=== PATIENT | male | born 1945 | race Caucasian/White ===

== ENCOUNTER 2017-03-17 19:07 | Inpatient (IN) ==
[2017-03-17] MEDS ORDERED: Acetaminophen 325 MG TABLET PO PRN (23:31)
[2017-03-17] MEDS ORDERED: *HR* HYDROcodone/Acet 5/325 mg TABLET PO PRN (23:31)
[2017-03-17] MEDS ORDERED: Naloxone 0.4 MG/ML INJ IVP PRN (23:31)
--- NOTE | 2017-03-17 23:32 | Internal Med History&Physical ---
<Angel Bills - Last Filed: 03/18/17 04:22> Date of Encounter: 03/17/17 Time of Encounter: 22:30 Assessment and Plan (1) SHARON (acute kidney injury) Current visit: Yes Status: Acute - SCr 2.88 on admission, which is worse compared to 1.2 on 03/15/17. - Likely multifactorial including dehydration, rhabdomyolysis and postrenal obstruction. - Avoid nephrotoxin. - Admit to hospital for aggressive hydration with IV fluid and close monitoring of renal function and electrolytes. Total time spent on admission: 40 minutes (2) Rhabdomyolysis Current visit: Yes Status: Acute - On the ground for more than 8 hours after a fall, myalgia and CK 1446 at [facility]. - Aggressive hydration with IV fluid. - Closely monitor renal function and electrolytes. - Prn pain medication for pain control. Qualifiers: Rhabdomyolysis type: non-traumatic Qualified Code(s): M62.82 - Rhabdomyolysis (3) Elevated troponin Current visit: Yes Status: Acute - Elevated troponin: 1.59 & 1.57 at [facility] and 1.08 here. - Patient denies chest pain and EKG showed no significant ischemic change. - Continue telemetry monitoring and serial troponin. - Continue aspirin but hold statin given current rhabdomyolysis. (4) Bilateral leg weakness Current visit: Yes Status: Acute - Patient reports sudden onset of bilateral lower extremity weakness starting 11 pm on 03/16/17. - Patient denies numbness/tingling or incontinence. And the back pain started after the weakness. 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 Patient denies dyspnea at this time. - Will obtain CT head, cervical and thoracic spine for further evaluation. - Close monitor with neuro check q4H. - PT/OT consult. (5) Transaminitis Current visit: Yes Status: Acute - With elevation of AST & ALT from 19 & 21 on 03/15/17 to 787 & 229 on admission. - S/p laparoscopic cholecystectomy on 03/10/17. - Will obtain CT A/P for further evaluation. - Continue to monitor closely. (6) UTI (urinary tract infection) Current visit: Yes Status: Acute - Concern of complicated UTI. - UA at [facility] is positive for nitrite and negative for leukocyte esterase. Urine culture pending. - History of kidney stone s/p recent lithotripsy & right ureteral stent. - Start IV ceftriaxone. Qualifiers: Urinary tract infection type: site unspecified Hematuria presence: with hematuria Qualified Code(s): N39.0 - Urinary tract infection, site not specified; R31.9 - Hematuria, unspecified (7) Urinary retention Current visit: Yes Status: Acute - Patient reports difficulty urinating after Tol[place] and right ureteral stent removal on 03/16/17. - Initiate [place] catheter. - Strict I/O. (8) Hypokalemia Current visit: Yes Status: Acute - K at 3.2 on admission. - Give 20 meq of KCl. - Continue to monitor and replenish accordingly. (9) Hyponatremia Current visit: Yes Status: Chronic - Na 130 on admission. - Likely chronic given prior Na 127 on 03/15 & Na 131 on 03/17. - Currently on IV NS. - Recheck Na in the AM and consider switch IVF to LR if Na increases near or more than 6. (10) Diabetes mellitus Current visit: Yes Status: Chronic - Insulin sliding scale with routine AccuCheck. Qualifiers: Diabetes mellitus type: type 2 Diabetes mellitus complication status: with unspecified complications Diabetes mellitus truck terminal manager insulin use: without truck terminal manager use Qualified Code(s): E11.8 - Type 2 diabetes mellitus with unspecified complications (11) Hypertension Current visit: Yes Status: Chronic - Continue home dose antihypertensive regimen. Qualifiers: Hypertension type: essential hypertension Qualified Code(s): I10 - Essential (primary) hypertension (12) DVT prophylaxis Current visit: Yes Status: Acute - SQ heparin. Internal Medicine - H&P: HPI Chief complaint: Sudden onset of lower extremity weakness. Admitted From: Emergency Dept Plans for Post Hospital Care: Transfer Inp Rehab Fac History of present illness: Mr. BOLAÑOS is a 71 year old male with PMH of DM, HTN and history of kidney stone s /p lithotripsy & right ureteral stent placement on 03/07/17 and laparoscopic cholecystectomy on 03/10/17 at [facility]. Patient had the right ureteral stent removed & Toledo removed yesterday and reports difficulty urinating since. Patient reports having sudden onset of bilateral lower extremity weakness resulting in a fall in bathroom at 11 PM last night. Patient was unable to get up so remained on the floor until being found at 7:30 AM. Patient denies loss of consciousness and reports back pain and pain of bilateral hips, knees and feet after fall. Patient also reports some abdominal fullness, nausea, dry heaving and loosen stool. Patient states his LOREN drain was removed today. Patient feels that weakness now also progressed to affect his upper extremities. Patient denies shortness of breath, cough, chest pain, palpitation , numbness/tingling, vision change, hearing change. Patient denies recent sick contact or travel. Patient denies recent trauma, injury or fall prior to the fall last night. Patient is full code. Lab at [facility] revealed WBC 11.8, Hgb 12.0, Plt 355, Na 131, K 3.0, Cl 93 , HCO3 23, BUN 24 and Cr 2.1, which dropped from Cr 1.2 on 03/15/17. First troponin 1.59 at 1359 and 1.57 at 1748. UA is positive for nitrite but negative for leukocyte esterase. Patient received one dose of IV levofloxacin, aspirin and Lipitor prior being transferred here. Past Med Surg Social Fam HX - Past Medical History Medical history: diabetes, hyperlipidemia, hypertension, kidney stones, syncope Psychiatric history: no psych history - Past Surgical History Surgical History: cholecystectomy, ureteral stent (Recent lithotripsy with right ureteral stent, which was removed on 03/16/17) - Social History Smoking Status: Never smoker Alcohol use: none Drug use: none - Family History Father Living Status: Age at : 84 Cause of : lung cancer Hx Family Cancer: Yes (Lung and throat cancer) Internal Medicine - H&P: Meds Dicyclomine [Bentyl] 10 mg PO TID 03/17/17 [History] Docusate [Colace] 100 mg PO BID 03/17/17 [History] Olmesartan/Hydrochlorothiazide [Benicar Hct 40-25 mg Tablet] 1 each PO DAILY [History] Omeprazole [PriLOSEC] 40 mg PO DAILY 03/17/17 [History] Ondansetron ODT [Zofran ODT] 4 mg PO Q6H PRN 03/17/17 [History] OxyCODONE/APAP 5/325 [Percocet 5/325 MG] 1 each PO Q6HR PRN 03/17/17 [History] Potassium Chloride [Klor-Con 10] 10 meq PO BID 03/17/17 [History] Pyridium 1 tab PO TID PRN 03/17/17 [History] Silodosin [Rapaflo] 8 mg PO DAILY 03/17/17 [History] Sucralfate [Carafate] 1 gm PO QID 03/17/17 [History] Sulfamethoxazole/Trimeth DS [Bactrim DS] 1 each PO BID 03/17/17 [History] amLODIPine [Norvasc] 5 mg PO BID 03/17/17 [History] metFORMIN [Glucophage] 500 mg PO ACHS 03/17/17 [History] 3 Allergy/AdvReac Type Severity Reaction Status Date / Time No Known Allergies Allergy Verified 03/17/17 21:44 All Systems PM: A 10-system review of systems was performed and is negative for pertinent findings except as documented above in the HPI. - Constitutional Constitutional: chills, no anorexia, no fever(s) - EENT Eyes: no change in vision Ears: no decreased hearing Nose, mouth and throat: no dysphagia, no odynophagia - Cardiovascular Cardiovascular ROS IM: no chest pain, no palpitations, no syncope - Respiratory Respiratory: no cough, no dyspnea, no hemoptysis - Gastrointestinal Gastrointestinal: abdominal pain, loose stools, nausea, vomiting, no hematochezia, no melena - Genitourinary Genitourinary ROS male: difficulty urinating, no dysuria, no hematuria - Musculoskeletal Musculoskeletal ROS IM: arthralgias (Back, bilateral hips, knees and feet), myalgias - Integumentary Integumentary IM: no pruritus, no rash - Neurological Neurological ROS: weakness (Bilateral lower extremity weakness), no numbness, no tingling - Hematologic/Lymphatic Hematologic/Lymphatic: no easy bleeding, no easy bruising - Constitutional Vitals: Temp Pulse Resp BP Pulse Ox 100.3 F H 96 18 131/87 98 03/17/17 21:31 03/17/17 22:54 03/17/17 21:31 03/17/17 21:31 03/17/17 21:31 General appearance: Present: cooperative, A&O X 3, no acute distress, answers questions appropriately - Head Head exam: Present: atraumatic, normocephalic - Eye Eye exam: Present: EOMI, PERRL, conjuntiva pink, sclera anicteric - ENT ENT exam: Present: mucous membranes dry - Neck Neck exam general surgery: Present: supple, trachea midline. Absent: lymphadenopathy - Respiratory Respiratory exam: Present: decreased breath sounds. Absent: accessory muscle use, rales, rhonchi, wheezes - Cardiovascular Cardiovascular exam: Present: +S1, +S2, tachycardia. Absent: diastolic murmur, gallop, rubs, systolic murmur - GI/Abdominal GI/Abdominal exam: Present: normal bowel sounds, soft, tenderness (Diffuse), no peritoneal signs. Absent: distended Additional comments: Incision sites with dressing noted. - Extremities Exam Extremities exam: Present: warm, radial pulses palpable and symmetrical. Absent : calf tenderness, cyanotic, pedal edema - Neurological Exam Neurological exam: Present: CN II-XII intact, oriented X3. Absent: pronater drift, facial droop, speech deficit Additional comments: Bilateral upper extremities: 5/5 strength but patient can only do for short time due to muscle pain. Bilateral lower extremities: Unable to full assess given patient reports cannot move his legs, likely due to pain. Patient is able to cross his legs. - Skin Skin exam: Present: abrasion (Bilateral knees from fall. ), dry, warm Internal Med - H&P Results - Labs CBC & Chem 7: 03/18/17 00:01 03/18/17 00:01 <Julio Rosales - Last Filed: 03/18/17 06:13> Date of Encounter: 03/18/17 Internal Medicine - H&P: HPI History of present illness: Mr. Bolaños is a 71 year old male All Systems PM: A 10-system review of systems was performed and is negative for pertinent findings except as documented above in the HPI. - Constitutional Vitals: Temp Pulse Resp BP Pulse Ox 98.1 F 73 18 120/71 98 03/18/17 05:18 03/18/17 05:18 03/18/17 05:18 03/18/17 05:18 03/18/17 05:18 Internal Med - H&P Results - Labs CBC & Chem 7: 03/18/17 00:01 03/18/17 00:01 Labs: Short CBC 03/18/17 Range/Units 00:01 WBC 10.5 (4.3-11.1) K/mcL Hgb 10.1 L (12.9-16.9) g/dL Hct 30.2 L (37.5-50.1) % Plt Count 305 (140-400) K/mcL Neutrophils # 9.7 H (1.6-8.9) K/mcL BMP 03/18/17 00:01 Sodium 130 L Potassium 3.2 L Chloride 99 Carbon Dioxide 18 L BUN 28 H Creatinine 2.88 H Glucose 167 H Calcium 8.2 L Cardiac Enzymes 03/18/17 Range/Units 00:01 Troponin I 1.08 H* (0-0.03) ng/mL Liver Function 03/18/17 Range/Units 00:01 Total Bilirubin 0.6 (0.2-1.2) mg/dL AST 787 H (5-34) Units/L ALT 229 H (0-55) Units/L Alkaline Phosphatase 55 (38-126) Units/L Albumin 2.4 L (3.5-5.0) g/dL Urine 03/18/17 Range/Units 00:50 Urine Color [place] A (Yellow) Urine Clarity Turbid A (Clear) Urine pH 6.0 (5.0-8.0) pH Units Ur Specific [place] 1.018 (1.010-1.025) Urine Protein 100 H (Neg-Trace) mg/dL Urine Glucose (UA) 500 H (Normal) mg/dL - Impressions ITS Impressions Cervical Spine CT 03/18/17 00:18 IMPRESSION: No acute abnormality of the cervical spine. Mild cervical spine spondylosis. D/ / Jaleel Holden MD / Jaleel Holden MD Interpreting Provider: Jaleel Holden MD Thoracic Spine CT 03/18/17 00:18 IMPRESSION: No acute fracture subluxation of the thoracic spine. Moderate general changes of the mid thoracic spine. D/ / Jaleel Holden MD / Jaleel Holden MD Interpreting Provider: Jaleel Holden MD - Attending Attestation I examined this patient and my medical decision-making was reviewed with the Resident Physician, Dr. Angel Bills. I agree with the documented findings, disposition and treatment plan as described except to the extent set forth below. I have independently obtained history and examined the patient and my findings are summarized below: Patient presented with lower extremity weakness and generalized aches and pains. CPK and troponin was elevated. He fell prior to admission and had lied on the floor for 8 hours. Patient has bilateral thigh flexor weakness, lower extremity distal muscle strength is more preserved. I have reviewed the records including blood work from [facility]. His BUN was 24 creatinine 2.1 troponin 1.57, lactic had set 3.9. Sodium 131 potassium 3.0. Plan: Vigorous IV fluid hydration. IV antibiotics for UTI. Heart monitoring. Trend troponin. Avoid nephrotoxins. CT head and cervical spine and thoracic spine to rule out intracranial or epidural process as a cause for his weakness. CT abdomen and pelvis to evaluate for source of infection.
[2017-03-17] MEDS ORDERED: 0.9 % Sodium Chloride 1,000 ML IVC SCH ×2 (23:45)
[2017-03-18] MEDS: *HR* OxyCODONE Immed Rel 5 MG TABLET PO PRN ×4 (00:09→23:21)
[2017-03-18 00:22] LABS: Basophils % 0.1 %; Hematocrit 30.2 % (37.5-50.1); Hemoglobin 10.1 g/dL (12.9-16.9); Immature Granulocytes % 0.6 % (0-4); Lymphocytes # 0.4 K/mcL (0.6-4.6); Lymphocytes % 3.3 %; Mean Corpuscular HGB Conc 33.4 g/dL (31.6-35.5); Mean Corpuscular Hemoglobin 26.6 pg (28.0-33.3); Mean Corpuscular Volume 79.5 fL (83.0-100.0); Mean Platelet Volume 9.1 fL (9.4-12.4); Monocytes # 0.4 K/mcL (0.0-1.3); Neutrophils # 9.7 K/mcL (1.6-8.9); Platelet Count 305 K/mcL (140-400); Red Cell Distribution Width 13.6 % (11.5-14.5)
[2017-03-18] MEDS ORDERED: D5% in Water 1,000 ML IVC PRN (00:22)
[2017-03-18] MEDS ORDERED: *HR* Dextrose 50 % in Water (Syg) 50 ML SYRINGE IVP PRN (00:22)
[2017-03-18] MEDS ORDERED: Dextrose Gel 15 GM PO PRN ×2 (00:22)
[2017-03-18 00:27] LABS: INR 1.5; Prothrombin Time 16.1 Seconds (9.4-12.1)
[2017-03-18 00:30] LABS: Activated Partial Thrombo Time 36.8 Seconds (26.0-36.0)
[2017-03-18 00:38] LABS: Albumin 2.4 g/dL (3.5-5.0); Albumin/Globulin Ratio 0.6 (1.1-2.2); Bilirubin,Total 0.6 mg/dL (0.2-1.2); Calcium 8.2 mg/dL (8.6-10.8); Magnesium 1.7 mg/dL (1.6-2.6); Potassium 3.2 mEq/L (3.5-4.5); Total Protein 6.4 g/dL (6.0-8.3)
[2017-03-18] MEDS: 0.9 % Sodium Chloride 1,000 ML IVC SCH ×5 (04:35→20:59)
[2017-03-18 04:59] LABS: Bilirubin,Urine Negative (Negative); Blood,Urine Large (Negative); Clarity,Urine Turbid (Clear); Color,Urine Orange (Yellow); Glucose,Urine (UA) 500 mg/dL (Normal); Ketones,Urine Trace mg/dL (Negative); Specific Gravity,Urine 1.018 (1.010-1.025)
[2017-03-18 05:00] LABS: Leukocyte Esterase,Urine Trace (Negative); Nitrite,Urine Positive (Negative); Protein,Urine 100 mg/dL (Neg-Trace); Urobilinogen,Urine Normal (Normal)
[2017-03-18 05:01] LABS: RBC,Urine 15-30 per hpf (0-3); Squamous Epithelial Cell,Urine Moderate per lpf (None-Few); WBC,Urine 0-3 per hpf (0-3)
[2017-03-18] MEDS: *HR* Heparin 5,000 UNIT/ML VIAL SQ SCH ×3 (05:03→21:00)
[2017-03-18 06:20] LABS: Basophils % 0.2 %; Eosinophils % 0.1 %; Hematocrit 30.3 % (37.5-50.1); Hemoglobin 10.1 g/dL (12.9-16.9); Immature Granulocytes % 0.6 % (0-4); Lymphocytes # 0.6 K/mcL (0.6-4.6); Lymphocytes % 6.1 %; Mean Corpuscular HGB Conc 33.3 g/dL (31.6-35.5); Mean Corpuscular Hemoglobin 27.2 pg (28.0-33.3); Mean Corpuscular Volume 81.5 fL (83.0-100.0); Mean Platelet Volume 9.4 fL (9.4-12.4); Monocytes # 0.4 K/mcL (0.0-1.3); Monocytes % 4.3 %; Neutrophils # 8.4 K/mcL (1.6-8.9); Platelet Count 298 K/mcL (140-400); Red Blood Count 3.72 M/mcL (4.19-5.50); Red Cell Distribution Width 13.9 % (11.5-14.5); Segmented Neutrophils % 88.7 %
[2017-03-18 06:42] LABS: Albumin 2.3 g/dL (3.5-5.0); Albumin/Globulin Ratio 0.5 (1.1-2.2); Bilirubin,Total 0.4 mg/dL (0.2-1.2); Calcium 8.2 mg/dL (8.6-10.8); Globulin 4.2 g/dL (2.4-3.5); Potassium 3.3 mEq/L (3.5-4.5); Total Protein 6.5 g/dL (6.0-8.3)
[2017-03-18] MEDS: Insulin LISPRO 300 UNITS/3 ML VIAL SQ SCH ×4 (06:44→20:58)
[2017-03-18] MEDS: Aspirin 81 MG TAB.CHEW PO SCH (08:24)
[2017-03-18] MEDS: Ondansetron 4 MG/2 ML VIAL IVP PRN ×2 (08:24→17:46)
[2017-03-18] MEDS: Sucralfate 1 GM TABLET PO SCH ×4 (08:24→19:47)
[2017-03-18] MEDS: amLODIPine 5 MG TABLET PO SCH ×2 (08:24→19:47)
[2017-03-18] MEDS ORDERED: Potassium Chloride Elixir 20 MEQ/15 ML UDC PO ONE (09:15)
--- NOTE | 2017-03-18 10:02 | Internal Med Progress Note ---
Date of Encounter: 03/18/17 Time of Encounter: 09:56 - Assessment and plan (1) Rhabdomyolysis Current Visit: Yes Status: Acute Assessment and plan: Significant bilateral lower extremity weakness leading to ground level fall and remaining on the ground for about 8 hours. Also noted to be on statin. Continue aggressive IV hydration, suspect acute kidney injury related to rhabdomyolysis. Serum creatinine kinase significantly elevated at 36,000, currently slightly improving. Monitor closely for worsening renal failure, compartment syndrome. Monitor urine output closely. Qualifiers: Rhabdomyolysis type: non-traumatic Qualified Code(s): M62.82 - Rhabdomyolysis (2) Elevated troponin Current Visit: Yes Status: Acute Assessment and plan: Noted to have troponin leak, peak troponin at 1.5. Patient did not have chest pain, no EKG changes. Continue telemetric monitoring. Serial troponin noted to be trending down up to 0.5. Less likely ACS, probably related to rhabdomyolysis. Check echocardiogram. Consult cardiology for further recommendations. (3) UTI (urinary tract infection) Current Visit: Yes Status: Acute Assessment and plan: Urinalysis suggestive of UTI. Continue IV Rocephin and follow up final urine culture. Qualifiers: Urinary tract infection type: site unspecified Hematuria presence: without hematuria Qualified Code(s): N39.0 - Urinary tract infection, site not specified (4) Bilateral leg weakness Current Visit: Yes Status: Acute Assessment and plan: Likely secondary to fall and rhabdomyolysis. CT cervical and lumbar spine shows no acute abnormality/stenosis/nerve root compression. Continue pain control with cautious use of oral Percocet and IV morphine. Physical and occupational therapy evaluation. (5) Urinary retention Current Visit: Yes Status: Acute Assessment and plan: Continue Smith catheter and monitor urine output. CT abdomen/pelvis showed right renal nonobstructive stones. Renal ultrasound shows nonobstructing stone in the lower pole of right kidney, no hydronephrosis or hydroureter. Continue to monitor closely. (6) Transaminitis Current Visit: Yes Status: Acute Assessment and plan: Currently improving. Could be related to recent laparoscopic cholecystectomy with retained stone/bile leak, acute renal failure. (7) Hypokalemia Current Visit: Yes Status: Acute Assessment and plan: Supplement oral potassium chloride. (8) SHARON (acute kidney injury) Current Visit: Yes Status: Acute Assessment and plan: Noted to have acute renal failure. Per patient's , he carries no diagnosis of chronic kidney disease. However, his renal dysfunction began during the recent admission at [facility] for urinary retention and right- sided hydroureter/hydronephrosis due to ureterolithiasis. He had placement of right ureteral stent and subsequent removal. Serum creatinine noted to be worsening at this time, 3.3 today. Nephrology consult. Continue IV hydration and urine output monitoring. Avoid new nephrotoxic agents. (9) Hypertension Current Visit: Yes Status: Chronic Qualifiers: Hypertension type: essential hypertension Qualified Code(s): I10 - Essential (primary) hypertension (10) Diabetes mellitus Current Visit: Yes Status: Chronic Assessment and plan: Continue Accu-Chek blood glucose monitoring with sliding scale insulin. Diabetic diet as tolerated. Qualifiers: Diabetes mellitus type: type 2 Diabetes mellitus complication status: with unspecified complications Diabetes mellitus long term care administrator insulin use: without long term care administrator use Qualified Code(s): E11.8 - Type 2 diabetes mellitus with unspecified complications - Subjective Interval history: Reports significant weakness in both his legs, can hardly move them; he also reports some weakness in his arms and feels miserable; very thirsty; urine output noted to be low; improving nausea and dry heaving; no chest pain but seems to be having some difficulty breathing; Of note, patient recently had laparoscopic cholecystectomy done as an outpatient and went home with LOREN drain likely due to biliary leak/obstruction, subsequently removed. Then he had lithotripsy done as an outpatient about 2 weeks ago, after which he developed some renal failure and urinary retention and was hospitalized at [facility], where he underwent right ureteral stent placement and Smith, both of which were removed on 03/16/17 and he was discharged home. He felt better at discharge but soon after getting home, he had significant leg weakness and stayed on the bathroom floor for a few hours before crawling back to bed, and was subsequently taken to [facility] urgent care by his , and then transferred here. - Constitutional Vitals: Temp Pulse Resp BP Pulse Ox 98.8 F 105 18 130/79 93 03/18/17 07:24 03/18/17 08:57 03/18/17 07:24 03/18/17 07:24 03/18/17 07:24 General appearance: Present: cooperative, mild distress, A&O X 3, obese, answers questions appropriately - Respiratory Respiratory exam: Present: CTAB. Absent: accessory muscle use, rales, rhonchi, wheezes - Cardiovascular Cardiovascular exam: Present: RRR, +S1, +S2. Absent: diastolic murmur, gallop, rubs, systolic murmur - GI/Abdominal GI/Abdominal exam: Present: normal bowel sounds, soft (obese), no peritoneal signs. Absent: distended, tenderness - Extremities Exam Extremities exam: Present: full ROM (decreased in LE B/L due to pain and weakness), warm, radial pulses palpable and symmetrical. Absent: calf tenderness, cyanotic, pedal edema - Neurological Exam Neurological exam: Present: CN II-XII intact, oriented X3, no focal deficits ( motor power 3-4/5 in B/L LE, 5/5 in B/L UE). Absent: pronater drift, facial droop, speech deficit - Skin Skin exam: Present: dry, intact Internal Medicine: Result - Labs CBC & Chem 7: 03/18/17 05:44 03/18/17 05:44 Labs: Short CBC 03/18/17 03/18/17 Range/Units 00:01 05:44 WBC 10.5 9.4 (4.3-11.1) K/mcL Hgb 10.1 L 10.1 L (12.9-16.9) g/dL Hct 30.2 L 30.3 L (37.5-50.1) % Plt Count 305 298 (140-400) K/mcL Neutrophils # 9.7 H 8.4 (1.6-8.9) K/mcL BMP 03/18/17 03/18/17 00:01 05:44 Sodium 130 L 131 L Potassium 3.2 L 3.3 L Chloride 99 96 L Carbon Dioxide 18 L 19 BUN 28 H 30 H Creatinine 2.88 H 3.31 H Glucose 167 H 139 H Calcium 8.2 L 8.2 L Cardiac Enzymes 03/18/17 03/18/17 Range/Units 00:01 05:44 Troponin I 1.08 H* 0.73 H* (0-0.03) ng/mL Liver Function 03/18/17 03/18/17 Range/Units 00:01 05:44 Total Bilirubin 0.6 0.4 (0.2-1.2) mg/dL AST 787 H 693 H (5-34) Units/L ALT 229 H 225 H (0-55) Units/L Alkaline Phosphatase 55 58 (38-126) Units/L Albumin 2.4 L 2.3 L (3.5-5.0) g/dL Urine 03/18/17 Range/Units 00:50 Urine Color [place] A (Yellow) Urine Clarity Turbid A (Clear) Urine pH 6.0 (5.0-8.0) pH Units Ur Specific [place] 1.018 (1.010-1.025) Urine Protein 100 H (Neg-Trace) mg/dL Urine Glucose (UA) 500 H (Normal) mg/dL - ABG Interpretation ABG results: PT/INR, D-dimer PT 16.1 Seconds (9.4-12.1) H 03/18/17 00:01 - Impressions Impressions Abdomen CT 03/18/17 00:18 IMPRESSION: 1. Stranding in the gallbladder fossa without focal fluid collection to suggest hematoma or bile leak. 2. Nonobstructing right renal calculi. 3. Lipoma in the ascending colon. There is distal colonic diverticulosis but no evidence for diverticulitis. D/ / 03/18/2017 07:03:57 Allna Anthony MD / [facility] Interpreting Provider: Allan Anthony MD Cervical Spine CT 03/18/17 00:18 IMPRESSION: No acute abnormality of the cervical spine. Mild cervical spine spondylosis. D/ / 03/18/2017 07:02:15 Jaleel Holden MD / [facility] Interpreting Provider: Jaleel Holden MD Head CT 03/18/17 00:18 IMPRESSION: Mild to moderate small vessel chronic ischemic changes with no acute hemorrhage or large zone of acute ischemia. D/ 03/18/2017 07:01:24 Allan Anthony MD / [facility] Interpreting Provider: Allan Anthony MD Thoracic Spine CT 03/18/17 00:18 IMPRESSION: No acute fracture or subluxation of the thoracic spine. Moderate degenerative changes of the mid thoracic spine. D/ /18/2017 07:01:57 Jaleel Holden MD / [facility] Interpreting Provider: Jaleel Holden MD Consult Discharge Plan - Plan Referrals: ALTA DELGADILLO [Other] - 04/01/17 4:15 pm NONE,PCP [Primary Care Provider] -
[2017-03-18] MEDS: *HR* Morphine 2 MG/ML SYRINGE IVP PRN (10:31)
--- NOTE | 2017-03-18 12:22 | Nephrology Consult Note ---
Date of Encounter: 03/18/17 Time of Encounter: 11:30 Assessment and Plan (1) SHARON (acute kidney injury) Current Visit: Yes Status: Acute SHARON in settingof recent renal insufficiency S/P renal calculi/renal stent requiring no HD. Possible current post renal obstruction following stent removal and multiple renal stones in right kidney on CT. BPH contributing. Rabdo -Statin given at [facility] may be contributing to extended immobility of patient from fall. Recent Bactrim use on SEP, though not contraindicated could be contributing to falsely elevated creat due to it causing decreased excretion of creat. Will obtain Renal US. Continu current IV fluids. Avoid nephrotoxins, maintain toledo catheter. Will continue to follow. History of Present Illness - Reason for Consult Acute Kidney Injury - History of Present Illness Mr. Zacarias is a 71 year old male with a PMH of diabetes and hypertension and recent kidney stone, S/P lithotripsy and right ureteral stent on Mar 02 and Lap Anupama on Mar 10 at [facility]. He states was told he had some renal insufficiency after surgery but did not require HD. present states creat 2.1 but told went back to normal by hospital discharge. He had stent and Toledo and J/P from anupama site taken out yesterday. He experienced leg weakness Wednesday night 03/16 resulting in fall to bathroom floor. He states he did not have the strength to lift self and layed all night until helped up at 0730. He denies LOC. He was taken to [facility] and then transferred to [place]. Labs from [facility] WBC 11.8, Hgb 12.0, Plt 355, Na 131, K 3.0, Cl 93, HCO3 23, BUN 24 and Cr 2.1. First troponin 1.59 at 1359 and 1.57 at 1748. UA is positive for nitrite, negative for leukocyte esterase. Patient received one dose of IV levofloxacin, aspirin and Lipitor prior being transferred here. Patient states has not taken statin in greater than two years due to muscle pain. Creat today 3.31, [place] [address]. Trop 0.73. Patient states diabetes and hypertension for 20 years , both under good control. Admits past chronic NSAID use; Ibuprofen 2-3 times a week for many years. Recently quit taking prior to surgery "worried about bleeding problems." He denies history of proteinuria. Admits microscopic hematuria, sates recent renal stone was first event, denies chronic UTI. Admits history of BPH. Denies difficulty urinating until catheter removed 03/16. Past Med Surg Social Fam HX - Past Medical History Medical history: diabetes, hyperlipidemia, hypertension, kidney stones, syncope Psychiatric history: no psych history - Past Surgical History Surgical History: cholecystectomy, ureteral stent (Recent lithotripsy with right ureteral stent, which was removed on 03/16/17) - Social History Smoking Status: Never smoker Alcohol use: none Drug use: none - Family History Father Living Status: Age at : 84 Cause of : lung cancer Hx Family Respiratory Disorders: Yes Hx Family Cancer: Yes (Lung and throat cancer) Medications and Allergies Dicyclomine [Bentyl] 10 mg PO TID 03/17/17 [History] Docusate [Colace] 100 mg PO BID 03/17/17 [History] Olmesartan/Hydrochlorothiazide [Benicar Hct 40-25 mg Tablet] 1 each PO DAILY [History] Omeprazole [PriLOSEC] 40 mg PO DAILY 03/17/17 [History] Ondansetron ODT [Zofran ODT] 4 mg PO Q6H PRN 03/17/17 [History] OxyCODONE/APAP 5/325 [Percocet 5/325 MG] 1 each PO Q6HR PRN 03/17/17 [History] Potassium Chloride [Klor-Con 10] 10 meq PO BID 03/17/17 [History] Pyridium 1 tab PO TID PRN 03/17/17 [History] Silodosin [Rapaflo] 8 mg PO DAILY 03/17/17 [History] Sucralfate [Carafate] 1 gm PO QID 03/17/17 [History] Sulfamethoxazole/Trimeth DS [Bactrim DS] 1 each PO BID 03/17/17 [History] amLODIPine [Norvasc] 5 mg PO BID 03/17/17 [History] metFORMIN [Glucophage] 500 mg PO ACHS 03/17/17 [History] 3 Allergy/AdvReac Type Severity Reaction Status Date / Time No Known Allergies Allergy Verified 03/17/17 21:44 Review of Systems All Systems: reviewed and no additional remarkable complaints except as stated Exam - Vital Signs Vital signs: Initial Vital Signs Temp Pulse Resp BP Pulse Ox 100.3 F H 102 18 131/87 98 03/17/17 21:31 03/17/17 21:31 03/17/17 21:31 03/17/17 21:31 03/17/17 21:31 Vital Signs - Last 8 Hours Temp Pulse Resp BP Pulse Ox 03/18/17 11:36 98.4 F 88 18 116/69 99 03/18/17 11:32 80 03/18/17 08:57 105 03/18/17 08:00 83 03/18/17 07:24 98.8 F 81 18 130/79 93 03/18/17 05:18 98.1 F 73 18 120/71 98 03/18/17 04:15 77 Intake and Output 03/17/17 03/18/17 03/18/17 23:59 07:59 15:59 Intake Total 1000 / 1000 Output Total 700 / 700 100 / 100 Balance -700 / -700 900 / 900 Intake: IV Fluids 1000 / 1000 0.9 % Sodium Chloride 1, 1000 / 1000 000 ML @ 200 mls/hr IVC . Q5H [facility] Rx#:[id number] Output: Urine 600 / 600 Urethral (Toledo) 600 / 600 Catheter 100 / 100 100 / 100 Other: Weight 101.5 kg 106 kg Blood Glucose* 135 184 Patient Weight 03/18/17 23:59 Weight 106 kg - General Appearance General appearance: well-developed, well-nourished, appears started age, obese EENT: mucous membranes moist Neck: no JVD Respiratory: clear Cardiology: no edema, regular rate, regular rhythm Gastrointestinal: normoactive bowel sounds, no tenderness, tenderness Integumentary: warm and dry Neurologic: alert and oriented x3 Psychiatric: mood/affect appropriate, cooperative Results - Lab Results 03/18/17 05:44 03/18/17 05:44 Most recent lab results Calcium 8.2 mg/dL (8.6-10.8) L 03/18/17 05:44 Magnesium 1.7 mg/dL (1.6-2.6) 03/18/17 00:01 Consult Discharge Plan - Plan Referrals: ALTA DELGADILLO [Other] - 04/01/17 4:15 pm NONE,PCP [Primary Care Provider] -
--- NOTE | 2017-03-18 14:13 | Cardiology Consult Note ---
Date of Encounter: 03/18/17 Time of Encounter: 14:15 Assessment and Plan (1) Bilateral leg weakness Current Visit: Yes Status: Acute Per Cardiology: Experienced bilateral extremity weakness with subsequent fall. Continues to experience severe weakness-- suspect in relation to rhabdo. (2) Rhabdomyolysis Current Visit: Yes Status: Acute Per Cardiology: Creatinine kinase noted to be 36,484-- s/p fall and lying on ground for over 8 hrs. on IV fluids. Management per primary service. Suspect contributing factor to AKA I and elevated troponins. Qualifiers: Rhabdomyolysis type: non-traumatic Qualified Code(s): M62.82 - Rhabdomyolysis (3) Elevated troponin Current Visit: Yes Status: Acute Per Cardiology: Troponin is noted to be 1.59, 1.57 at [facility], continues to downward trend of 1.08 , 0.73, and 0.50. Chest pain-free. Do not suspect ACS, suspect demand ischemia in setting of fall with subsequent rhabdomyolysis. Echo pending. Discussed and reviewed with Dr. Dallas. Further recommendations pending echo. (4) SHARON (acute kidney injury) Current Visit: Yes Status: Acute Per Cardiology: Recent ureteral stenting with lithotripsy and subsequent stenting removal March 16, 2017. Presents with acute kidney injury, nephrology following. (5) UTI (urinary tract infection) Current Visit: Yes Status: Acute Per Cardiology: On antibiotics, culture pending, management per primary service. Qualifiers: Urinary tract infection type: site unspecified Hematuria presence: with hematuria Qualified Code(s): N39.0 - Urinary tract infection, site not specified; R31.9 - Hematuria, unspecified Discussion w patient/family: The assessment and plan as outlined above was discussed with the patient and/or family members who expressed understanding and agreement. All questions were answered. Thank you for involving us in the care of your patient. Please call with any questions. History of Present Illness Consult date: 03/18/17 Requesting physician: Anayeli Simeon Consult reason: NSTEMI?, Elevated trops in setting of SHARON, Rhabdo Chief complaint: Weakness History of present illness: Mr. Zacarias is a 71 year old male with a relevant past medical history of diabetes mellitus2, hyperlipidemia, hypertension, and recent ureteral stenting with recent lithotripsy. Previous records reviewed: Patient admitted for acute sudden onset of lower extremity weakness and subsquent fall (on bathroom floor for at least 8 hrs). Had recent kidney stone and is status post lithotripsy and right ureteral stent placement March 07, 2017 at [facility]. Had laparoscopic cholecystectomy on March 10, 2017 at [facility]. Patient had right ureteral stent removal and [place] removal 03/16/17. Patient with subsequent difficulty urinating. While in bathroom developed severe bilateral lower extremity weakness and had a fall in the bathroom-- appeared to remain on the floor for at least 8 hours. Troponins from outside facility noted to be 1.59 and then 1.57. Cardiology consult today for elevated troponin. Patient denies any chest pain, shortness of breath, palpitations. Reports prior to recent few weeks very active walking and mowing his lawn with no difficulties. Patient now with extreme fatigue and weakness and difficulty sitting up in bed. He denies any previous stenting and reports stress test about 10 years ago. Again prior to recent developments denies any dyspnea exertion or fatigue. Denies any history of CK D. Denies any history of CVA or stroke. Denies any history of anemia or active bleeding or blood loss. Past Med Surg Social Fam HX - Past Medical History Attestation: Yes The following information was validated with the patient. Source: patient, old records reviewed Medical history: diabetes, hyperlipidemia, hypertension, kidney stones, syncope Psychiatric history: no psych history - Past Surgical History Surgical History: cholecystectomy, ureteral stent (Recent lithotripsy with right ureteral stent, which was removed on 03/16/17) - Social History Smoking Status: Never smoker Alcohol use: none Drug use: none - Family History Father Living Status: Age at : 84 Cause of : lung cancer Hx Family Respiratory Disorders: Yes Hx Family Cancer: Yes (Lung and throat cancer) Medications and Allergies Dicyclomine [Bentyl] 10 mg PO TID 03/17/17 [History] Docusate [Colace] 100 mg PO BID 03/17/17 [History] Olmesartan/Hydrochlorothiazide [Benicar Hct 40-25 mg Tablet] 1 each PO DAILY [History] Omeprazole [PriLOSEC] 40 mg PO DAILY 03/17/17 [History] Ondansetron ODT [Zofran ODT] 4 mg PO Q6H PRN 03/17/17 [History] OxyCODONE/APAP 5/325 [Percocet 5/325 MG] 1 each PO Q6HR PRN 03/17/17 [History] Potassium Chloride [Klor-Con 10] 10 meq PO BID 03/17/17 [History] Pyridium 1 tab PO TID PRN 03/17/17 [History] Silodosin [Rapaflo] 8 mg PO DAILY 03/17/17 [History] Sucralfate [Carafate] 1 gm PO QID 03/17/17 [History] Sulfamethoxazole/Trimeth DS [Bactrim DS] 1 each PO BID 03/17/17 [History] amLODIPine [Norvasc] 5 mg PO BID 03/17/17 [History] metFORMIN [Glucophage] 500 mg PO ACHS 03/17/17 [History] 3 Allergy/AdvReac Type Severity Reaction Status Date / Time No Known Allergies Allergy Verified 03/17/17 21:44 All Systems Review: A 10-system review of systems was performed and is negative for pertinent findings except as documented above in the HPI. - Constitutional Constitutional: weakness - Cardiovascular Cardiovascular: as per HPI, diaphoresis - Genitourinary Genitourinary: other - Musculoskeletal Musculoskeletal: muscle weakness Physical Examination Vital Signs, Last 4 Hours Temp Pulse Resp BP Pulse Ox 03/18/17 11:36 98.4 F 88 18 116/69 99 03/18/17 11:32 80 General: Conversant HEENT: Atraumatic, Normocephaly, Mucus Membranes Moist Cardiac: Reg Rate and Rhythm, Normal S1 and S2, No Murmur Lungs: Normal Breath Sounds, No Wheeze, Rales, Rhonchi Neuro: Alert and responsive, No focal deficits noted Abdomen: Soft, Other (Multiple incision sites with patrice dry and intact, no erythema, mild ecchymosis, no drainage-- from recent laparoscopic cholecystectomy) Skin: No rashes noted on visualized skin Musculoskeletal: No Chest Wall Tenderness Extremities: No Cyanosis, No Edema, Normal Pulses Other: body tremors/shaking, [place]ledo dark yellow urine Results 03/18/17 05:44 03/18/17 05:44 Lab Results Laboratory Tests 03/18/17 03/18/17 03/18/17 00:01 00:01 00:01 Hgb 10.1 L Hct 30.2 L INR 1.5 Potassium 3.2 L Creatinine 2.88 H Magnesium 1.7 AST 787 H ALT 229 H Creatine Kinase 64535 H Troponin I Albumin 2.4 L TSH Urine Color Urine Clarity Urine Protein Urine Glucose (UA) Urine Blood Urine Nitrite Ur Leukocyte Esterase Ur Culture Indicated? 03/18/17 03/18/17 03/18/17 00:01 00:01 00:50 Hgb Hct INR Potassium Creatinine Magnesium AST ALT Creatine Kinase Troponin I 1.08 H* Albumin TSH 1.644 Urine Color [place] A Urine Clarity Turbid A Urine Protein 100 H Urine Glucose (UA) 500 H Urine Blood Large H Urine Nitrite Positive A Ur Leukocyte Esterase Trace H Ur Culture Indicated? YES A 03/18/17 03/18/17 03/18/17 05:44 05:44 05:44 Hgb 10.1 L Hct 30.3 L INR Potassium 3.3 L Creatinine 3.31 H Magnesium AST ALT Creatine Kinase 27329 H Troponin I 0.73 H* Albumin TSH Urine Color Urine Clarity Urine Protein Urine Glucose (UA) Urine Blood Urine Nitrite Ur Leukocyte Esterase Ur Culture Indicated? 03/18/17 13:06 Hgb Hct INR Potassium Creatinine Magnesium AST ALT Creatine Kinase Troponin I 0.50 H* Albumin TSH Urine Color Urine Clarity Urine Protein Urine Glucose (UA) Urine Blood Urine Nitrite Ur Leukocyte Esterase Ur Culture Indicated? ITS Impressions Abdomen CT 03/18/17 00:18 IMPRESSION: 1. Stranding in the gallbladder fossa without focal fluid collection to suggest hematoma or bile leak. 2. Nonobstructing right renal calculi. 3. Lipoma in the ascending colon. There is distal colonic diverticulosis but no evidence for diverticulitis. D/ / 03/18/2017 07:03:57 Allan Anthony MD / [facility] Interpreting Provider: Allan Anthony MD Cervical Spine CT 03/18/17 00:18 IMPRESSION: No acute abnormality of the cervical spine. Mild cervical spine spondylosis. D/ / 03/18/2017 07:02:15 Jaleel Holden MD / [facility] Interpreting Provider: Jaleel Holden MD Head CT 03/18/17 00:18 IMPRESSION: Mild to moderate small vessel chronic ischemic changes with no acute hemorrhage or large zone of acute ischemia. D/ 03/18/2017 07:01:24 Allan Anthony MD / [facility] Interpreting Provider: Allan Anthony MD Thoracic Spine CT 03/18/17 00:18 IMPRESSION: No acute fracture or subluxation of the thoracic spine. Moderate degenerative changes of the mid thoracic spine. D/ / 03/18/2017 07:01:57 Jaleel Holden MD / [facility] Interpreting Provider: Jaleel Holden MD Intake & Output 03/15/17 03/16/17 03/17/17 03/18/17 23:59 23:59 23:59 23:59 Intake Total 1480 / 1480 Output Total 800 / 800 Balance 680 / 680 Weight 101.5 kg 106 kg Active Medications Amlodipine Besylate (Norvasc) 5 mg PO BID DANIEL PRN Reason: Protocol Stop: 09/17/17 09:01 Last Admin: 03/18/17 08:24 Dose: 5 mg Aspirin (Aspirin) 81 mg PO DAILY DANIEL Stop: 09/17/17 09:01 Last Admin: 03/18/17 08:24 Dose: 81 mg Dextrose/Water (Dextrose 50% (Syg)) 25 ml IVP AD PRN PRN Reason: Hypoglycemia Stop: 09/17/17 00:23 Glucagon (Glucagen) 1 mg IM ONCE PRN PRN Reason: Hypoglycemia Stop: 09/17/17 00:23 Glucose (Gluctose) 15 gm PO ONCE PRN PRN Reason: Hypoglycemia Stop: 09/17/17 00:23 Glucose (Gluctose) 30 gm PO ONCE PRN PRN Reason: Hypoglycemia Stop: 09/17/17 00:23 Heparin Sodium (Porcine) (Heparin) 5,000 unit SQ Q8HCO DANIEL Stop: 09/17/17 06:01 Last Admin: 03/18/17 12:34 Dose: 5,000 unit Ceftriaxone Sodium 2,000 mg/ (Dextrose) 100 mls @ 200 mls/hr IVPB Q24H [facility] Stop: 09/17/17 01:01 Last Admin: 03/18/17 01:45 Dose: 200 mls/hr Dextrose (Dextrose 5%) 1,000 mls @ 100 mls/hr IVC .Q10H PRN PRN Reason: HYPOGLYCEMIA Stop: 09/17/17 00:23 Sodium Chloride (0.9 % Sodium Chloride) 1,000 mls @ 200 mls/hr IVC .Q5H [facility] Stop: 09/17/17 00:53 Last Admin: 03/18/17 09:15 Dose: 200 mls/hr Insulin Human Lispro (Humalog) 0 units SQ Q6HR DANIEL PRN Reason: Protocol Stop: 09/17/17 06:01 Last Admin: 03/18/17 12:34 Dose: 4 units Morphine Sulfate (Morphine Sulfate) 2 mg IVP Q4HR PRN PRN Reason: Severe Pain (7-10) Stop: 09/16/17 23:32 Last Admin: 03/18/17 10:31 Dose: 2 mg Naloxone HCl (Narcan) 0.4 mg IVP Q2MIN PRN PRN Reason: Opioid Reversal Stop: 09/16/17 23:32 Omeprazole (Prilosec) 40 mg PO 0630 [facility] Stop: 09/17/17 06:31 Last Admin: 03/18/17 05:02 Dose: 40 mg Ondansetron HCl (Zofran) 4 mg IVP Q8HR PRN PRN Reason: Nausea And Vomiting Stop: 09/16/17 23:32 Last Admin: 03/18/17 08:24 Dose: 4 mg Oxycodone HCl (Roxicodone) 5 mg PO Q6HR PRN PRN Reason: Moderate pain (4-6) Stop: 09/16/17 23:37 Last Admin: 03/18/17 08:24 Dose: 5 mg Sucralfate (Carafate) 1 gm PO QID [facility] Stop: 09/17/17 09:01 Last Admin: 03/18/17 12:34 Dose: 1 gm Tamsulosin HCl (Flomax) 0.4 mg PO HS [facility] Stop: 09/17/17 21:01 - Imaging and Cardiology Echo: pending - EKG Interpretation EKG results cardiology: personally reviewed, sinus rhythm, no diagnostic ischemia, other (24 hr tele shows avg HR 84, SR, very rare PVCs, brief epsiodes of atrial tach) Consult Discharge Plan - Plan Referrals: ALTA DELGADILLO [Other] - 04/01/17 4:15 pm NONE,PCP [Primary Care Provider] -
--- NOTE | 2017-03-18 17:45 | Electrocardiograph Report ---
[place] [id number] Test Date: 2017-03-18 Pat Name: Flynn Zacarias Department: 110 Room: 2N11 Gender: M Manager Wind: ZHANG : 1945 Requested By: Angel Bills Order Number: [id number] Reading MD: Nereyda Brar Measurements Intervals [place] Rate: 75 P: -15 W[place]: 147 QRS: 6 QRSD: 107 T: 27 QT: 418 QTc: 447 Interpretive Statements SINUS RHYTHM WITH SINUS ARRHYTHMIA NONSPECIFIC T-WAVE ABNORMALITY Electronically Signed On 03-18-2017 17:43:20 EDT by Nereyda Brar
[2017-03-19] MEDS: Ondansetron 4 MG/2 ML VIAL IVP PRN ×2 (01:16→10:30)
[2017-03-19] MEDS: 0.9 % Sodium Chloride 1,000 ML IVC SCH ×2 (03:05→07:35)
[2017-03-19 05:06] LABS: Basophils % 0.1 %; Eosinophils % 0.4 %; Hematocrit 30.5 % (37.5-50.1); Hemoglobin 9.8 g/dL (12.9-16.9); Immature Granulocytes % 0.6 % (0-4); Lymphocytes # 0.6 K/mcL (0.6-4.6); Lymphocytes % 7.1 %; Mean Corpuscular HGB Conc 32.1 g/dL (31.6-35.5); Mean Corpuscular Hemoglobin 26.4 pg (28.0-33.3); Mean Corpuscular Volume 82.2 fL (83.0-100.0); Mean Platelet Volume 8.8 fL (9.4-12.4); Monocytes # 0.4 K/mcL (0.0-1.3); Monocytes % 5.5 %; Neutrophils # 6.9 K/mcL (1.6-8.9); Platelet Count 292 K/mcL (140-400); Red Blood Count 3.71 M/mcL (4.19-5.50); Red Cell Distribution Width 13.7 % (11.5-14.5); Segmented Neutrophils % 86.3 %
[2017-03-19 05:22] LABS: Albumin 2.1 g/dL (3.5-5.0); Albumin/Globulin Ratio 0.6 (1.1-2.2); Bilirubin,Total 0.3 mg/dL (0.2-1.2); Calcium 7.9 mg/dL (8.6-10.8); Globulin 3.7 g/dL (2.4-3.5); Magnesium 1.7 mg/dL (1.6-2.6); Potassium 3.9 mEq/L (3.5-4.5); Total Protein 5.8 g/dL (6.0-8.3)
[2017-03-19] MEDS: *HR* Heparin 5,000 UNIT/ML VIAL SQ SCH ×3 (05:39→21:37)
[2017-03-19] MEDS: *HR* OxyCODONE Immed Rel 5 MG TABLET PO PRN ×3 (06:49→22:07)
[2017-03-19] MEDS: amLODIPine 5 MG TABLET PO SCH ×2 (07:35→21:37)
[2017-03-19] MEDS: Sucralfate 1 GM TABLET PO SCH ×4 (07:35→21:36)
[2017-03-19] MEDS: Aspirin 81 MG TAB.CHEW PO SCH (07:35)
[2017-03-19] MEDS: Insulin LISPRO 300 UNITS/3 ML VIAL SQ SCH ×4 (08:15→22:01)
--- NOTE | 2017-03-19 08:18 | Cardiology Progress Note ---
Date of Encounter: 03/19/17 Time of Encounter: 08:15 Assessment and Plan (1) Rhabdomyolysis Current Visit: Yes Status: Acute Per Cardiology: Creatinine kinase noted to be 36,484-- s/p fall and lying on ground for over 8 hrs. On IV fluids. Management per primary service. Suspect contributing factor to SHARON and elevated troponins. Qualifiers: Rhabdomyolysis type: non-traumatic Qualified Code(s): M62.82 - Rhabdomyolysis (2) Elevated troponin Current Visit: Yes Status: Acute Per Cardiology: Troponin is noted to be 1.59, 1.57 at [facility], continues to downward trend of 1.08 , 0.73, and 0.50. Chest pain-free. Do not suspect ACS, suspect demand ischemia in setting of fall with subsequent rhabdomyolysis-- no cardiac rehabilitation consult warranted. Echo shows EF preserved at 50%, mild AR, no segment wall motion abnormalities of haskins visualized. Discussed and reviewed with Dr. Dallas, will sign off, re-consult as needed, follow up as outpatient scheduled. Patient and verbalized her standing and agreed with plan. All questions answered. (3) SHARON (acute kidney injury) Current Visit: Yes Status: Acute Per Cardiology: Recent ureteral stenting with lithotripsy and subsequent stenting removal March 16, 2017. Presents with acute kidney injury. Kidney function worsening today-- nephrology following. Discussion w patient/family: The assessment and plan as outlined above was discussed with the patient and/or family members who expressed understanding and agreement. All questions were answered. Thank you for involving us in the care of your patient. Please call with any questions. Subjective Principal diagnosis: Rhabdo Interval history: Patient denies any chest pain. Reports continues to experience abdominal incisional discomfort. Reports positive nausea this morning. Reports continues to experience generalized weakness. Objective Vital Signs, Last 4 Hours Temp Pulse Resp BP Pulse Ox 03/19/17 07:50 97.6 F 77 20 136/78 100 03/19/17 04:30 73 General: Conversant HEENT: Atraumatic, Normocephaly Cardiac: Reg Rate and Rhythm, Normal S1 and S2, No Murmur Lungs: Normal Breath Sounds Neuro: Alert and responsive, No focal deficits noted Extremities: No Edema Results 03/19/17 04:48 03/19/17 04:48 Lab Results Laboratory Tests 03/18/17 03/19/17 00:01 04:48 Creatinine 2.88 H 4.87 H Est GFR (Non-Af Amer) 22 L 12 L AST 382 H ALT 195 H Impressions Retroperitoneum Ultrasound 03/18/17 13:45 IMPRESSION: 1. Nonobstructing calculus in a lower pole calyx of the right renal collecting system. Otherwise normal sonographic appearance of the kidneys without findings underlying parenchymal disease. 2. Decompression of the urinary bladder due to a Smith catheter. D/ / Tristen Méndez MD / Tristen Méndez MD Interpreting Provider: Tristen Méndez MD Active Medications Amlodipine Besylate (Norvasc) 5 mg PO BID DANIEL PRN Reason: Protocol Stop: 09/17/17 09:01 Last Admin: 03/19/17 07:35 Dose: 5 mg Aspirin (Aspirin) 81 mg PO DAILY [facility] Stop: 09/17/17 09:01 Last Admin: 03/19/17 07:35 Dose: 81 mg Dextrose/Water (Dextrose 50% (Syg)) 25 ml IVP AD PRN PRN Reason: Hypoglycemia Stop: 09/17/17 00:23 Glucagon (Glucagen) 1 mg IM ONCE PRN PRN Reason: Hypoglycemia Stop: 09/17/17 00:23 Glucose (Gluctose) 15 gm PO ONCE PRN PRN Reason: Hypoglycemia Stop: 09/17/17 00:23 Glucose (Gluctose) 30 gm PO ONCE PRN PRN Reason: Hypoglycemia Stop: 09/17/17 00:23 Heparin Sodium (Porcine) (Heparin) 5,000 unit SQ Q8HCO [facility] Stop: 09/17/17 06:01 Last Admin: 03/19/17 05:39 Dose: 5,000 unit Ceftriaxone Sodium 2,000 mg/ (Dextrose) 100 mls @ 200 mls/hr IVPB Q24H [facility] Stop: 09/17/17 01:01 Last Admin: 03/19/17 00:37 Dose: 200 mls/hr Dextrose (Dextrose 5%) 1,000 mls @ 100 mls/hr IVC .Q10H PRN PRN Reason: HYPOGLYCEMIA Stop: 09/17/17 00:23 Sodium Chloride (0.9 % Sodium Chloride) 1,000 mls @ 200 mls/hr IVC .Q5H [facility] Stop: 09/17/17 00:53 Last Infusion: 03/19/17 07:35 Dose: Infused Insulin Human Lispro (Humalog) 0 units SQ ACHS DANIEL PRN Reason: Protocol Stop: 09/17/17 21:01 Last Admin: 03/18/17 20:58 Dose: 4 units Morphine Sulfate (Morphine Sulfate) 2 mg IVP Q4HR PRN PRN Reason: Severe Pain (7-10) Stop: 09/16/17 23:32 Last Admin: 03/18/17 10:31 Dose: 2 mg Naloxone HCl (Narcan) 0.4 mg IVP Q2MIN PRN PRN Reason: Opioid Reversal Stop: 09/16/17 23:32 Omeprazole (Prilosec) 40 mg PO 0630 [facility] Stop: 09/17/17 06:31 Last Admin: 03/19/17 05:39 Dose: 40 mg Ondansetron HCl (Zofran) 4 mg IVP Q8HR PRN PRN Reason: Nausea And Vomiting Stop: 09/16/17 23:32 Last Admin: 03/19/17 01:16 Dose: 4 mg Oxycodone HCl (Roxicodone) 5 mg PO Q6HR PRN PRN Reason: Moderate pain (4-6) Stop: 09/16/17 23:37 Last Admin: 03/19/17 06:49 Dose: 5 mg Sucralfate (Carafate) 1 gm PO QID [facility] Stop: 09/17/17 09:01 Last Admin: 03/19/17 07:35 Dose: 1 gm Tamsulosin HCl (Flomax) 0.4 mg PO HS [facility] Stop: 09/17/17 21:01 Last Admin: 03/18/17 19:47 Dose: 0.4 mg - Imaging and Cardiology Echo: report reviewed - EKG Interpretation EKG results cardiology: other (Telemetry reviewed with average heart rate the past 12 hours 78, sinus rhythm with rare PVCs and rare PACs, no significant events noted) Consult Discharge Plan - Plan Referrals: ALTA DELGADILLO [Other] - 04/01/17 4:15 pm NONE,PCP [Primary Care Provider] -
--- NOTE | 2017-03-19 09:54 | Nephrology Progress Note ---
Date of Encounter: 03/19/17 Time of Encounter: 09:45 - Assessment and Plan (1) SHARON (acute kidney injury) Current Visit: Yes Status: Acute SHARON in setting of recent renal insufficiency S/P renal calculi/renal stent requiring no HD. Possible current post renal obstruction following stent removal and multiple renal stones in right kidney on CT. Non obstructing calculus right kidney. BPH contributing. Rabdo-Statin given at [facility] may be contributing to extended immobility of patient [place] [id number]. Recent Bactrim use on SEP, though not contraindicated could be contributing to falsely elevated creat due to it causing decreased excretion of creat. Abdominal pain with distention, guarding. Spoke with hospitalist, states will see patient, order imaging. Metabolic acidosis-will change IV fluids D5 with Bicarb 3 amps at 100 cc/hr. Avoid nephrotoxins, maintain [place]ledo catheter. Will continue to follow. Subjective Principal diagnosis: Rhabdo Interval history: Sitting up in bed. at bedside. States was feeling better through night, but now having abdominal pain that has been increasing last few hours and "gas that is not coming out." Objective - Vital Signs Vital signs: Vital Signs Temp Pulse Resp BP Pulse Ox 03/19/17 07:50 97.6 F 77 20 136/78 100 03/19/17 07:40 97.7 F 73 20 124/79 100 03/19/17 04:30 73 03/19/17 04:04 97.7 F 75 20 124/79 100 03/18/17 23:30 76 03/18/17 22:45 98.3 F 88 16 126/79 99 03/18/17 20:04 81 03/18/17 19:30 97.5 F L 93 16 124/75 96 03/18/17 16:27 98.5 F 71 18 123/79 98 03/18/17 16:00 80 03/18/17 11:36 98.4 F 88 18 116/69 99 03/18/17 11:32 80 Intake and Output 03/18/17 03/19/17 03/19/17 23:59 07:59 15:59 Intake Total 1360 / 1360 1999 / 1999 240 / 240 Output Total 500 / 500 200 / 200 Balance 860 / 860 1800 / 1800 240 / 240 Intake: IV Fluids 1000 / 1000 1999 / 2000 0.9 % Sodium Chloride 1, 1000 / 1000 2000 / 2000 000 ML @ 200 mls/hr IVC . Q5H [facility] Rx#:[id number] Oral 360 / 360 0 / 0 240 / 240 Output: Urine 350 / 350 Catheter 150 / 150 200 / 200 Other: Meal Dinner Breakfast Percent of Meal Consumed 30% 5% Stool Size Smear Stool Consistency loose Stool Color Yellow # Bowel Movements 1 Weight 108.227 kg Blood Glucose* 188 150 - General Appearance General appearance: Present: well-developed, well-nourished, appears started age , obese EENT: Present: mucous membranes moist Neck: Present: no JVD Respiratory: Present: clear Cardiology: Present: no edema, regular rate, regular rhythm Gastrointestinal: Present: normoactive bowel sounds, tenderness, guarding, distended Integumentary: Present: warm and dry Neurologic: Present: alert and oriented x3 Psychiatric: Present: mood/affect appropriate, cooperative - Lab 03/19/17 04:48 03/19/17 04:48 Most recent lab results Calcium 7.9 mg/dL (8.6-10.8) L 03/19/17 04:48 Magnesium 1.7 mg/dL (1.6-2.6) 03/19/17 04:48 Consult Discharge Plan - Plan Referrals: ALTA DELGADILLO [Other] - 04/01/17 4:15 pm NONE,PCP [Primary Care Provider] -
--- NOTE | 2017-03-19 10:10 | Event Note ---
Date of Encounter: 03/19/17 Time of Encounter: 10:09 Do not replace calcium, unless symptomatic. Sequesters in muscle and will return intravascularly with improvement of rabdo.
[2017-03-19] MEDS ORDERED: Sodium Bicarbonate 150 MEQ in D5% in Water 1,000 ML IVC SCH (10:15)
[2017-03-19] MEDS: Sennosides/Docusate Sodium TABLET PO SCH ×2 (10:30→21:36)
[2017-03-19] MEDS ORDERED: *HR* Promethazine 25 MG/ML VIAL ONE (14:41)
[2017-03-19] MEDS ORDERED: *HR* Promethazine 25 MG/ML VIAL IVP ONE (14:46)
--- NOTE | 2017-03-19 16:14 | Internal Med Progress Note ---
Date of Encounter: 03/19/17 Time of Encounter: 11:50 - Assessment and plan (1) SHARON (acute kidney injury) Current Visit: Yes Status: Acute Assessment and plan: Noted to have acute renal failure. Per patient's , he carries no diagnosis of chronic kidney disease. However, his renal dysfunction began during the recent admission at [facility] for urinary retention and right- sided hydroureter/hydronephrosis due to ureterolithiasis. He had placement of right ureteral stent and subsequent removal. Serum creatinine noted to be worsening at this time, 4.8 today, with associated metabolic acidosis. Nephrology consult and f/up appreciated- started IV bicarbonate drip today. Avoid new nephrotoxic agents. (2) Ileus Current Visit: Yes Status: Acute Assessment and plan: CT abdomen and pelvis shows dilated small bowel loops with air fluid levels with no transition point, suggestive of ileus. Unclear etiology- ?likely due to ARF and rhabdomyolysis. Continue PRN antiemetics and IV hydration, supportive care. Monitor and replete electrolytes. Clear liquid diet as tolerated. Monitor closely. (3) Rhabdomyolysis Current Visit: Yes Status: Acute Assessment and plan: Significant bilateral lower extremity weakness leading to ground level fall and remaining on the ground for about 8 hours. Also noted to be on statin. Continue aggressive IV hydration, suspect acute kidney injury related to rhabdomyolysis. Serum creatinine kinase noted to be improving, down to 15K today; Monitor closely for worsening renal failure, compartment syndrome. Monitor urine output closely. Qualifiers: Rhabdomyolysis type: non-traumatic Qualified Code(s): M62.82 - Rhabdomyolysis (4) Elevated troponin Current Visit: Yes Status: Acute Assessment and plan: Noted to have troponin leak, peak troponin at 1.5. Patient did not have chest pain, no EKG changes. Continue telemetric monitoring. Serial troponin noted to be trending down to 0.5. Less likely ACS, probably related to rhabdomyolysis. Echocardiogram shows mildly decreased EF around 50%, global hypokinesis, mild AR. Cardiology consult appreciated- recommend no acute intervention, signed off. (5) UTI (urinary tract infection) Current Visit: Yes Status: Ruled-out Assessment and plan: UA noted to be abnormal and urine culture negative. Will discontinue IV Rocephin. Qualifiers: Urinary tract infection type: site unspecified Hematuria presence: without hematuria Qualified Code(s): N39.0 - Urinary tract infection, site not specified (6) Bilateral leg weakness Current Visit: Yes Status: Acute Assessment and plan: Likely secondary to fall and rhabdomyolysis. CT cervical and lumbar spine shows no acute abnormality/stenosis/nerve root compression. Continue pain control with cautious use of oral Percocet and IV morphine. Physical and occupational therapy evaluation noted- recommend IP rehab placement. director of food and beverage services consult. (7) Urinary retention Current Visit: Yes Status: Acute Assessment and plan: Continue Smith catheter and monitor urine output. CT abdomen/pelvis showed right renal nonobstructive stones. Renal ultrasound shows nonobstructing stone in the lower pole of right kidney, no hydronephrosis or hydroureter. Continue to monitor closely. (8) Transaminitis Current Visit: Yes Status: Acute Assessment and plan: Currently improving. Could be related to recent laparoscopic cholecystectomy with retained stone/bile leak, acute renal failure. (9) Hypokalemia Current Visit: Yes Status: Resolved (10) Hypertension Current Visit: Yes Status: Chronic Qualifiers: Hypertension type: essential hypertension Qualified Code(s): I10 - Essential (primary) hypertension (11) Diabetes mellitus Current Visit: Yes Status: Chronic Assessment and plan: Continue Accu-Chek blood glucose monitoring with sliding scale insulin. Diabetic diet as tolerated. Qualifiers: Diabetes mellitus type: type 2 Diabetes mellitus complication status: with unspecified complications Diabetes mellitus group home insulin use: without group home use Qualified Code(s): E11.8 - Type 2 diabetes mellitus with unspecified complications - Subjective Interval history: Reports significant abdominal pain, belching, nausea and dry heaving today; also has some abdominal distension; improving leg weakness and pain; improving urine output; - Constitutional Vitals: Temp Pulse Resp BP Pulse Ox 97.6 F 86 20 140/87 98 03/19/17 15:15 03/19/17 15:15 03/19/17 15:15 03/19/17 15:15 03/19/17 15:15 General appearance: Present: cooperative, mild distress, A&O X 3, obese, answers questions appropriately - Respiratory Respiratory exam: Present: CTAB. Absent: accessory muscle use, rales, rhonchi, wheezes - Cardiovascular Cardiovascular exam: Present: RRR, +S1, +S2. Absent: diastolic murmur, gallop, rubs, systolic murmur - GI/Abdominal GI/Abdominal exam: Present: distended (in upper abdomen), normal bowel sounds, soft (tenderness in RUQ and LUQ), no peritoneal signs. Absent: tenderness - Extremities Exam Extremities exam: Present: pedal edema (trace dependent pedal edema), warm, radial pulses palpable and symmetrical. Absent: calf tenderness, cyanotic - Neurological Exam Neurological exam: Present: CN II-XII intact, oriented X3, no focal deficits. Absent: pronater drift, facial droop, speech deficit Internal Medicine: Result - Labs CBC & Chem 7: 03/19/17 04:48 03/19/17 04:48 Labs: Short CBC 03/19/17 Range/Units 04:48 WBC 8.0 (4.3-11.1) K/mcL Hgb 9.8 L (12.9-16.9) g/dL Hct 30.5 L (37.5-50.1) % Plt Count 292 (140-400) K/mcL Neutrophils # 6.9 (1.6-8.9) K/mcL BMP 03/19/17 04:48 Sodium 129 L Potassium 3.9 Chloride 102 Carbon Dioxide 16 L BUN 41 H D Creatinine 4.87 H Glucose 144 H Calcium 7.9 L Liver Function 03/19/17 Range/Units 04:48 Total Bilirubin 0.3 (0.2-1.2) mg/dL AST 382 H (5-34) Units/L ALT 195 H (0-55) Units/L Alkaline Phosphatase 64 (38-126) Units/L Albumin 2.1 L (3.5-5.0) g/dL - ABG Interpretation ABG results: PT/INR, D-dimer PT 16.1 Seconds (9.4-12.1) H 03/18/17 00:01 - Impressions Impressions Abdomen CT 03/18/17 00:18 IMPRESSION: 1. Stranding in the gallbladder fossa without focal fluid collection to suggest hematoma or bile leak. 2. Nonobstructing right renal calculi. 3. Lipoma in the ascending colon. There is distal colonic diverticulosis but no evidence for diverticulitis. D/ / 03/18/2017 07:03:57 Allan Anthony MD / gino Interpreting Provider: Allan Anthony MD Cervical Spine CT 03/18/17 00:18 IMPRESSION: No acute abnormality of the cervical spine. Mild cervical spine spondylosis. D/ / 03/18/2017 07:02:15 Jaleel Holden MD / cynthia Interpreting Provider: Jaleel Holden MD Head CT 03/18/17 00:18 IMPRESSION: Mild to moderate small vessel chronic ischemic changes with no acute hemorrhage or large zone of acute ischemia. D/ 03/18/2017 07:01:24 Allan Anthony MD / kinsey Interpreting Provider: Allan Anthony MD Thoracic Spine CT 03/18/17 00:18 IMPRESSION: No acute fracture or subluxation of the thoracic spine. Moderate degenerative changes of the mid thoracic spine. D/ / 03/18/2017 07:01:57 Jaleel Holden MD / cynthia Interpreting Provider: Jaleel Holden MD Abdomen/Pelvis CT 03/19/17 14:00 IMPRESSION: Nonobstructing stones in the right kidney without evidence of hydronephrosis. Nonobstructing 4 mm stone in the left posterolateral bladder. Distended loops of small and large bowel throughout the abdomen and pelvis without focal obstruction. Findings suggest ileus. This is new since the prior examination. Small amount of ascites and inflammatory fluid in the abdomen and pelvis particularly in the right paracolic gutter and right pelvis. This may related to the ileus. This is nonspecific and new since the prior exam. Enlarged prostate gland suggesting prostatic hypertrophy. Estimated prostate volume of 150 mL. Appendicolith without appendicitis. Diverticulosis without evidence of acute diverticulitis. D/ / 03/19/2017 14:45:47 Jonathan Felton MD / thomas Interpreting Provider: Jonathan Felton MD Consult Discharge Plan - Plan Referrals: ALTA DELGADILLO [Other] - 04/01/17 4:15 pm NONE,PCP [Primary Care Provider] -
[2017-03-19] MEDS: Sodium Bicarbonate 150 MEQ in D5% in Water 1,000 ML IVC SCH (23:07)
[2017-03-20] MEDS: Ondansetron 4 MG/2 ML VIAL IVP PRN ×2 (02:15→10:18)
[2017-03-20] MEDS: *HR* Morphine 2 MG/ML SYRINGE IVP PRN ×3 (02:29→20:20)
[2017-03-20] MEDS: *HR* Heparin 5,000 UNIT/ML VIAL SQ SCH ×3 (05:44→23:10)
[2017-03-20 07:16] LABS: Calcium 8.4 mg/dL (8.6-10.8); Potassium 3.6 mEq/L (3.5-4.5)
[2017-03-20] MEDS: Sennosides/Docusate Sodium TABLET PO SCH ×2 (08:10→23:15)
[2017-03-20] MEDS: amLODIPine 5 MG TABLET PO SCH ×2 (08:10→23:15)
[2017-03-20] MEDS: Sucralfate 1 GM TABLET PO SCH ×4 (08:10→23:15)
[2017-03-20] MEDS: Aspirin 81 MG TAB.CHEW PO SCH (08:10)
[2017-03-20] MEDS: Insulin LISPRO 300 UNITS/3 ML VIAL SQ SCH ×4 (08:11→20:35)
[2017-03-20] MEDS: *HR* OxyCODONE Immed Rel 5 MG TABLET PO PRN ×2 (08:12→18:37)
--- NOTE | 2017-03-20 08:17 | Nephrology Progress Note ---
Date of Encounter: 03/20/17 Time of Encounter: 08:15 - Assessment and Plan (1) SHARON (acute kidney injury) Current Visit: Yes Status: Acute The patient has acute kidney injury in the setting of rhabdomyolysis. Patient' s renal function continues to worsen. If his renal function worsens any further he may require acute dialysis. I did discuss this with both the patient and his . They are aware of this possibility. Patient continues to have abdominal pain. CAT scan shows an ileus. It may be worthwhile to consider a surgical consultation. (2) Rhabdomyolysis Current Visit: Yes Status: Acute Qualifiers: Rhabdomyolysis type: non-traumatic Qualified Code(s): M62.82 - Rhabdomyolysis (3) Ileus Current Visit: Yes Status: Acute Subjective Principal diagnosis: Rhabdo Interval history: The patient continues to complain of abdominal pain. A recent CT scan showed evidence of an ileus. From a renal perspective his serum creatinine continues to worsen. CPK has decreased down to 7075. Urine output is recorded as 850 mL. Objective - Vital Signs Vital signs: Vital Signs Temp Pulse Resp BP Pulse Ox 03/20/17 07:24 97.5 F L 90 18 145/96 98 03/20/17 05:45 86 03/20/17 05:43 97.7 F 88 16 138/90 98 03/19/17 23:30 85 03/19/17 22:54 97.8 F 89 18 142/85 96 03/19/17 21:15 95 03/19/17 20:00 97.9 F 96 18 141/87 98 03/19/17 16:23 98.1 F 106 20 148/83 99 03/19/17 15:15 97.6 F 86 20 140/87 98 03/19/17 11:41 97.6 F 86 20 140/87 98 03/19/17 11:40 97.6 F 77 20 136/78 100 Intake and Output 03/19/17 03/20/17 03/20/17 23:59 07:59 15:59 Intake Total 100 / 100 100 / 100 Output Total 650 / 650 250 / 250 Balance -550 / -550 -150 / -150 Intake: Oral 100 / 100 100 / 100 Output: Catheter 650 / 650 250 / 250 Other: Stool Size Small Stool Consistency liquid Stool Color Brown Yellow Weight 109.3 kg Blood Glucose* 191 216 Patient Weight 03/20/17 23:59 Weight 109.3 kg - General Appearance Exam: The patient appears acutely ill. Lungs Maisch breath sounds otherwise clear. Heart regular rate and rhythm. Abdomen demonstrates high-pitched bowel sounds. There is diffuse abdominal tenderness to minimal palpation. There is some lower extremity swelling. - Lab 03/19/17 04:48 03/20/17 05:42 Most recent lab results Calcium 8.4 mg/dL (8.6-10.8) L 03/20/17 05:42 Magnesium 1.7 mg/dL (1.6-2.6) 03/19/17 04:48 Consult Discharge Plan - Plan Referrals: ALTA DELGADILLO [Other] - 04/01/17 4:15 pm NONE,PCP [Primary Care Provider] -
[2017-03-20] MEDS: Sodium Bicarbonate 150 MEQ in D5% in Water 1,000 ML IVC SCH ×2 (10:18→23:15)
[2017-03-20] MEDS ORDERED: Ondansetron 4 MG/2 ML VIAL IVP PRN (11:07)
[2017-03-20] MEDS: Metoclopramide 10 MG/2 ML VIAL IVP PRN ×2 (12:21→18:34)
--- NOTE | 2017-03-20 14:16 | Internal Med Progress Note ---
Date of Encounter: 03/20/17 Time of Encounter: 11:15 - Assessment and plan (1) SHARON (acute kidney injury) Current Visit: Yes Status: Acute Assessment and plan: Noted to have acute renal failure. Per patient's , he carries no diagnosis of chronic kidney disease. However, his renal dysfunction began during the recent admission at [facility] for urinary retention and right- sided hydroureter/hydronephrosis due to ureterolithiasis. He had placement of right ureteral stent and subsequent removal. Serum creatinine continues to be worsening at this time, 6 today, with improving metabolic acidosis. Nephrology consult and f/up appreciated- continue IV bicarbonate drip, may require ENGINEERING INTERN if creatinine continues to worsen. Avoid new nephrotoxic agents. (2) Ileus Current Visit: Yes Status: Acute Assessment and plan: CT abdomen and pelvis shows dilated small bowel loops with air fluid levels with no transition point, suggestive of ileus. Unclear etiology- ?likely due to ARF and rhabdomyolysis. Worsening. Will keep NPO and consult Surgery for further recommendations. Continue PRN antiemetics and IV hydration, supportive care. Monitor and replete electrolytes. Monitor closely. (3) Rhabdomyolysis Current Visit: Yes Status: Acute Assessment and plan: Significant bilateral lower extremity weakness leading to ground level fall and remaining on the ground for about 8 hours. Also noted to be on statin. Continue aggressive IV hydration, suspect acute kidney injury related to rhabdomyolysis. Serum creatinine kinase noted to be improving, down to 7K today ; Monitor closely for worsening renal failure, compartment syndrome. Monitor urine output closely. Qualifiers: Rhabdomyolysis type: non-traumatic Qualified Code(s): M62.82 - Rhabdomyolysis (4) Elevated troponin Current Visit: Yes Status: Resolved Assessment and plan: Noted to have troponin leak, peak troponin at 1.5. Patient did not have chest pain, no EKG changes. Serial troponin noted to be trending down to 0.5. Less likely ACS, probably related to rhabdomyolysis. Echocardiogram shows mildly decreased EF around 50%, global hypokinesis, mild AR. Cardiology consult appreciated- recommend no acute intervention, signed off. (5) UTI (urinary tract infection) Current Visit: Yes Status: Ruled-out Qualifiers: Urinary tract infection type: site unspecified Hematuria presence: without hematuria Qualified Code(s): N39.0 - Urinary tract infection, site not specified (6) Bilateral leg weakness Current Visit: Yes Status: Acute Assessment and plan: Likely secondary to fall and rhabdomyolysis. CT cervical and lumbar spine shows no acute abnormality/stenosis/nerve root compression. Continue pain control with cautious use of oral Percocet and IV morphine. Physical and occupational therapy evaluation noted- recommend IP rehab placement. services delivery driver consulted. (7) Urinary retention Current Visit: Yes Status: Acute Assessment and plan: Continue Smith catheter and monitor urine output. CT abdomen/pelvis showed right renal nonobstructive stones. Renal ultrasound shows nonobstructing stone in the lower pole of right kidney, no hydronephrosis or hydroureter. Continue to monitor closely. (8) Transaminitis Current Visit: Yes Status: Acute Assessment and plan: Currently improving. Could be related to recent laparoscopic cholecystectomy with retained stone/bile leak, acute renal failure. (9) Hypokalemia Current Visit: Yes Status: Resolved (10) Hypertension Current Visit: Yes Status: Chronic Qualifiers: Hypertension type: essential hypertension Qualified Code(s): I10 - Essential (primary) hypertension (11) Diabetes mellitus Current Visit: Yes Status: Chronic Assessment and plan: Continue Accu-Chek blood glucose monitoring with sliding scale insulin. Diabetic diet as tolerated. Qualifiers: Diabetes mellitus type: type 2 Diabetes mellitus complication status: with unspecified complications Diabetes mellitus intermediate designer insulin use: without intermediate designer use Qualified Code(s): E11.8 - Type 2 diabetes mellitus with unspecified complications - Subjective Interval history: Reports significant abdominal pain, belching, nausea and dry heaving; slightly worse abdominal distension since yesterday; improving leg weakness and pain; improving urine output; - Constitutional Vitals: Temp Pulse Resp BP Pulse Ox 98.3 F 90 18 125/85 95 03/20/17 11:28 03/20/17 12:00 03/20/17 11:28 03/20/17 11:28 03/20/17 11:28 General appearance: Present: cooperative, mild distress, A&O X 3, obese, answers questions appropriately - Respiratory Respiratory exam: Present: CTAB. Absent: accessory muscle use, rales, rhonchi, wheezes - Cardiovascular Cardiovascular exam: Present: RRR, +S1, +S2. Absent: diastolic murmur, gallop, rubs, systolic murmur - GI/Abdominal GI/Abdominal exam: Present: normal bowel sounds, soft, no peritoneal signs. Absent: distended, tenderness - Extremities Exam Extremities exam: Present: full ROM, pedal edema (trace), warm, radial pulses palpable and symmetrical. Absent: calf tenderness, cyanotic - Neurological Exam Neurological exam: Present: CN II-XII intact, oriented X3, no focal deficits. Absent: pronater drift, facial droop, speech deficit Internal Medicine: Result - Labs CBC & Chem 7: 03/19/17 04:48 03/20/17 05:42 Labs: BMP 03/20/17 05:42 Sodium 130 L Potassium 3.6 Chloride 97 L Carbon Dioxide 20 BUN 49 H Creatinine 6.07 H Glucose 203 H Calcium 8.4 L - ABG Interpretation ABG results: PT/INR, D-dimer PT 16.1 Seconds (9.4-12.1) H 03/18/17 00:01 - Impressions Impressions Abdomen/Pelvis CT 03/19/17 14:00 IMPRESSION: Nonobstructing stones in the right kidney without evidence of hydronephrosis. Nonobstructing 4 mm stone in the left posterolateral bladder. Distended loops of small and large bowel throughout the abdomen and pelvis without focal obstruction. Findings suggest ileus. This is new since the prior examination. Small amount of ascites and inflammatory fluid in the abdomen and pelvis particularly in the right paracolic gutter and right pelvis. This may related to the ileus. This is nonspecific and new since the prior exam. Enlarged prostate gland suggesting prostatic hypertrophy. Estimated prostate volume of 150 mL. Appendicolith without appendicitis. Diverticulosis without evidence of acute diverticulitis. D/ / 03/19/2017 14:45:47 Jonathan Felton MD / thomas Interpreting Provider: Jonathan Felton MD Consult Discharge Plan - Plan Referrals: ALTA DELGADILLO [Other] - 04/01/17 4:15 pm NONE,PCP [Primary Care Provider] -
--- NOTE | 2017-03-20 15:07 | General Surgery Consult Note ---
<Eren Sarmiento - Last Filed: 03/20/17 15:35> Date of Encounter: 03/20/17 Time of Encounter: 14:37 Assessment and Plan (1) Ileus Current Visit: Yes Status: Acute CT demonstrates ileus Most likely related to SHARON and rhabdo We will manage conservatively with NPO except sips with medications, IVF, antiemetics, and supportive care Serial abdominal examinations We will follow along with you (2) SHARON (acute kidney injury) Current Visit: Yes Status: Acute Managed per nephro (3) Rhabdomyolysis Current Visit: Yes Status: Acute Improving Managed per medicine Qualifiers: Rhabdomyolysis type: non-traumatic Qualified Code(s): M62.82 - Rhabdomyolysis History of Present Illness Consult date: 03/20/17 Reason for consult: other (ileus) History of present illness: Flynn Zacarias is a 71 yo male with PMH of HTN, DM, laparoscopic cholecystectomy , and lithotripsy/R ureteral stent placement 03/07/17 who presented to [facility] from [place] after presenting there with bilateral lower extremity weakness that left him unable to get up after falling for 8 hours. The stent was removed on 03/16/17 and he reported subsequent difficulty urination. LOREN drain from cholecystectomy was removed 03/17/17. That evening, he started to have the weakness. He additionally started to have distention, nausea, and dry heaving. CT scan was consistent with ileus, given multiple loops of both small and large bowel without clear transition point. Past Med Surg Social Fam HX - Past Medical History Medical history: diabetes, hyperlipidemia, hypertension, kidney stones, syncope Psychiatric history: no psych history - Past Surgical History Surgical History: cholecystectomy, ureteral stent (Recent lithotripsy with right ureteral stent, which was removed on 03/16/17) - Social History Smoking Status: Never smoker Alcohol use: none Drug use: none - Family History Father Living Status: Age at : 84 Cause of : lung cancer Hx Family Respiratory Disorders: Yes Hx Family Cancer: Yes (Lung and throat cancer) Medications and Allergies Dicyclomine [Bentyl] 10 mg PO TID 03/17/17 [History] Docusate [Colace] 100 mg PO BID 03/17/17 [History] Olmesartan/Hydrochlorothiazide [Benicar Hct 40-25 mg Tablet] 1 each PO DAILY [History] Omeprazole [PriLOSEC] 40 mg PO DAILY 03/17/17 [History] Ondansetron ODT [Zofran ODT] 4 mg PO Q6H PRN 03/17/17 [History] OxyCODONE/APAP 5/325 [Percocet 5/325 MG] 1 each PO Q6HR PRN 03/17/17 [History] Potassium Chloride [Klor-Con 10] 10 meq PO BID 03/17/17 [History] Pyridium 1 tab PO TID PRN 03/17/17 [History] Silodosin [Rapaflo] 8 mg PO DAILY 03/17/17 [History] Sucralfate [Carafate] 1 gm PO QID 03/17/17 [History] Sulfamethoxazole/Trimeth DS [Bactrim DS] 1 each PO BID 03/17/17 [History] amLODIPine [Norvasc] 5 mg PO BID 03/17/17 [History] metFORMIN [Glucophage] 500 mg PO ACHS 03/17/17 [History] 3 Allergy/AdvReac Type Severity Reaction Status Date / Time No Known Allergies Allergy Verified 03/17/17 21:44 Review of Systems All systems PM: A 10-system review of systems was performed and is negative for pertinent findings except as documented above in the HPI. - Constitutional anorexia - Gastrointestinal abdominal pain, belching, bloating, nausea, vomiting (mostly dry heaving) General Surgery Exam Initial Vital Signs Temp Pulse Resp BP Pulse Ox 100.3 F H 102 18 131/87 98 03/17/17 21:31 03/17/17 21:31 03/17/17 21:31 03/17/17 21:31 03/17/17 21:31 - General physical appearance well developed, well nourished, moderate pain, obese, other (intermittent dry heaving) - Eyes normal ocular movement - ENT atraumatic, normocephalic - Neck trachea midline - Respiratory normal expansion, normal respiratory effort, clear to auscultation - Cardiovascular Cardiovascular exam: Present: RRR - Abdomen Abdomen general surgery: Present: bowel sounds present, tympanic, distended, tender, surgical scars (recent lap anupama incisions). Absent: guarding, rebound Abdominal Tenderness: Present: diffusely (R > L) - Incision Incision: Present: clean and dry, intact - Musculoskeletal Present: normal posture - Psychiatric Psychiatric general surgery: Present: appropriate, speech is normal Exam Initial Vital Signs Temp Pulse Resp BP Pulse Ox 100.3 F H 102 18 131/87 98 03/17/17 21:31 03/17/17 21:31 03/17/17 21:31 03/17/17 21:31 03/17/17 21:31 Results - Labs 03/19/17 04:48 03/20/17 05:42 Abnormal lab results RBC 3.71 M/mcL (4.19-5.50) L 03/19/17 04:48 Hgb 9.8 g/dL (12.9-16.9) L 03/19/17 04:48 Hct 30.5 % (37.5-50.1) L 03/19/17 04:48 MCV 82.2 fL (83.0-100.0) L 03/19/17 04:48 MCH 26.4 pg (28.0-33.3) L 03/19/17 04:48 MPV 8.8 fL (9.4-12.4) L 03/19/17 04:48 PT 16.1 Seconds (9.4-12.1) H 03/18/17 00:01 APTT 36.8 Seconds (26.0-36.0) H 03/18/17 00:01 Sodium 130 mEq/L (136-145) L 03/20/17 05:42 Chloride 97 mEq/L (98-109) L 03/20/17 05:42 BUN 49 mg/dL (8-26) H 03/20/17 05:42 Creatinine 6.07 mg/dL (0.72-1.25) H 03/20/17 05:42 Est GFR ( Amer) 11 (> 60) L 03/20/17 05:42 Est GFR (Non-Af Amer) 9 (> 60) L 03/20/17 05:42 Glucose 203 mg/dL (70-99) H 03/20/17 05:42 POC Glucose 191 (58-89) H 03/19/17 20:03 Calcium 8.4 mg/dL (8.6-10.8) L 03/20/17 05:42 AST 382 Units/L (5-34) H 03/19/17 04:48 ALT 195 Units/L (0-55) H 03/19/17 04:48 Creatine Kinase 7075 Units/L (30-200) H 03/20/17 05:42 Troponin I 0.50 ng/mL (0-0.03) H* 03/18/17 13:06 Serum Total Protein 5.8 g/dL (6.0-8.3) L 03/19/17 04:48 Albumin 2.1 g/dL (3.5-5.0) L 03/19/17 04:48 Globulin 3.7 g/dL (2.4-3.5) H 03/19/17 04:48 Albumin/Globulin Ratio 0.6 (1.1-2.2) L 03/19/17 04:48 Urine Color [place] (Yellow) A 03/18/17 00:50 Urine Clarity Turbid (Clear) A 03/18/17 00:50 Urine Protein 100 mg/dL (Neg-Trace) H 03/18/17 00:50 Urine Glucose (UA) 500 mg/dL (Normal) H 03/18/17 00:50 Urine Ketones Trace mg/dL (Negative) H 03/18/17 00:50 Urine Blood Large (Negative) H 03/18/17 00:50 Urine Nitrite Positive (Negative) A 03/18/17 00:50 Ur Leukocyte Esterase Trace (Negative) H 03/18/17 00:50 Urine Microscopic RBC 15-30 per hpf (0-3) H 03/18/17 00:50 Ur Squamous Epith Cells Moderate per lpf (None-Few) H 03/18/17 00:50 Ur Culture Indicated? YES (NO) A 03/18/17 00:50 Diabetes panel 03/20/17 Range/Units 05:42 Sodium 130 L (136-145) mEq/L Potassium 3.6 (3.5-4.5) mEq/L Chloride 97 L (98-109) mEq/L Carbon Dioxide 20 (19-29) mEq/L BUN 49 H (8-26) mg/dL Creatinine 6.07 H (0.72-1.25) mg/dL Glucose 203 H (70-99) mg/dL Calcium 8.4 L (8.6-10.8) mg/dL Calcium panel 03/20/17 Range/Units 05:42 Calcium 8.4 L (8.6-10.8) mg/dL Pituitary panel 03/20/17 Range/Units 05:42 Sodium 130 L (136-145) mEq/L Potassium 3.6 (3.5-4.5) mEq/L Chloride 97 L (98-109) mEq/L Carbon Dioxide 20 (19-29) mEq/L BUN 49 H (8-26) mg/dL Creatinine 6.07 H (0.72-1.25) mg/dL Glucose 203 H (70-99) mg/dL Calcium 8.4 L (8.6-10.8) mg/dL Adrenal panel 03/20/17 Range/Units 05:42 Sodium 130 L (136-145) mEq/L Potassium 3.6 (3.5-4.5) mEq/L Chloride 97 L (98-109) mEq/L Carbon Dioxide 20 (19-29) mEq/L BUN 49 H (8-26) mg/dL Creatinine 6.07 H (0.72-1.25) mg/dL Glucose 203 H (70-99) mg/dL Calcium 8.4 L (8.6-10.8) mg/dL All other labs normal. - Imaging CT scan - abdomen: report reviewed ( CT/CT abd pelvis wo no iv no oral IMPRESSION: Nonobstructing stones in the right kidney without evidence of hydronephrosis. Nonobstructing 4 mm stone in the left posterolateral bladder. Distended loops of small and large bowel throughout the abdomen and pelvis without focal obstruction. Findings suggest ileus. This is new since the prior examination. Small amount of ascites and inflammatory fluid in the abdomen and pelvis particularly in the right paracolic gutter and right pelvis. This may related to the ileus. This is nonspecific and new since the prior exam. Enlarged prostate gland suggesting prostatic hypertrophy. Estimated prostate volume of 150 mL. Appendicolith without appendicitis. Diverticulosis without evidence of acute diverticulitis. D/ / 03/19/2017 14:45:47 Jonathan Felton MD / thomas Interpreting Provider: Jonathan Felton MD), image reviewed US - kidney/bladder: report reviewed ( US/US retroperitoneal comp IMPRESSION: 1. Nonobstructing calculus in a lower pole calyx of the right renal collecting system. Otherwise normal sonographic appearance of the kidneys without findings underlying parenchymal disease. 2. Decompression of the urinary bladder due to a Smith catheter. D/ / Tristen Méndez MD / Tristen Méndez MD Interpreting Provider: Tristen Méndez MD ) Consult Discharge Plan - Plan Referrals: ALTA DELGADILLO [Other] - 04/01/17 4:15 pm NONE,PCP [Primary Care Provider] - <Evans Curtis T - Last Filed: 03/22/17 09:06> Date of Encounter: 03/20/17 Review of Systems All systems PM: A 10-system review of systems was performed and is negative for pertinent findings except as documented above in the HPI. General Surgery Exam Initial Vital Signs Temp Pulse Resp BP Pulse Ox 100.3 F H 102 18 131/87 98 03/17/17 21:31 03/17/17 21:31 03/17/17 21:31 03/17/17 21:31 03/17/17 21:31 Exam Initial Vital Signs Temp Pulse Resp BP Pulse Ox 100.3 F H 102 18 131/87 98 03/17/17 21:31 03/17/17 21:31 03/17/17 21:31 03/17/17 21:31 03/17/17 21:31 Results - Labs 03/19/17 04:48 03/22/17 04:15 Abnormal lab results RBC 3.71 M/mcL (4.19-5.50) L 03/19/17 04:48 Hgb 9.8 g/dL (12.9-16.9) L 03/19/17 04:48 Hct 30.5 % (37.5-50.1) L 03/19/17 04:48 MCV 82.2 fL (83.0-100.0) L 03/19/17 04:48 MCH 26.4 pg (28.0-33.3) L 03/19/17 04:48 MPV 8.8 fL (9.4-12.4) L 03/19/17 04:48 PT 16.1 Seconds (9.4-12.1) H 03/18/17 00:01 APTT 36.8 Seconds (26.0-36.0) H 03/18/17 00:01 Sodium 133 mEq/L (136-145) L 03/22/17 04:15 Potassium 3.3 mEq/L (3.5-4.5) L 03/22/17 04:15 Chloride 89 mEq/L (98-109) L 03/22/17 04:15 Carbon Dioxide 31 mEq/L (19-29) H 03/22/17 04:15 BUN 66 mg/dL (8-26) H 03/22/17 04:15 Creatinine 7.46 mg/dL (0.72-1.25) H 03/22/17 04:15 Est GFR ( Amer) 9 (> 60) L 03/22/17 04:15 Est GFR (Non-Af Amer) 7 (> 60) L 03/22/17 04:15 Glucose 168 mg/dL (70-99) H 03/22/17 04:15 POC Glucose 155 (58-89) H 03/21/17 20:25 Calcium 8.3 mg/dL (8.6-10.8) L 03/22/17 04:15 Phosphorus 6.3 mg/dL (2.3-4.7) H 03/22/17 04:15 AST 159 Units/L (5-34) H 03/22/17 04:15 ALT 153 Units/L (0-55) H 03/22/17 04:15 Creatine Kinase 3899 Units/L (30-200) H 03/21/17 04:36 Troponin I 0.50 ng/mL (0-0.03) H* 03/18/17 13:06 Serum Total Protein 5.3 g/dL (6.0-8.3) L 03/22/17 04:15 Albumin 2.0 g/dL (3.5-5.0) L 03/22/17 04:15 Albumin/Globulin Ratio 0.6 (1.1-2.2) L 03/22/17 04:15 Urine Color [place] (Yellow) A 03/18/17 00:50 Urine Clarity Turbid (Clear) A 03/18/17 00:50 Urine Protein 100 mg/dL (Neg-Trace) H 03/18/17 00:50 Urine Glucose (UA) 500 mg/dL (Normal) H 03/18/17 00:50 Urine Ketones Trace mg/dL (Negative) H 03/18/17 00:50 Urine Blood Large (Negative) H 03/18/17 00:50 Urine Nitrite Positive (Negative) A 03/18/17 00:50 Ur Leukocyte Esterase Trace (Negative) H 03/18/17 00:50 Urine Microscopic RBC 15-30 per hpf (0-3) H 03/18/17 00:50 Ur Squamous Epith Cells Moderate per lpf (None-Few) H 03/18/17 00:50 Ur Culture Indicated? YES (NO) A 03/18/17 00:50 Diabetes panel 03/22/17 Range/Units 04:15 Sodium 133 L (136-145) mEq/L Potassium 3.3 L (3.5-4.5) mEq/L Chloride 89 L (98-109) mEq/L Carbon Dioxide 31 H (19-29) mEq/L BUN 66 H (8-26) mg/dL Creatinine 7.46 H (0.72-1.25) mg/dL Glucose 168 H (70-99) mg/dL Calcium 8.3 L (8.6-10.8) mg/dL AST 159 H (5-34) Units/L ALT 153 H (0-55) Units/L Alkaline Phosphatase 55 (38-126) Units/L Albumin 2.0 L (3.5-5.0) g/dL Calcium panel 03/22/17 03/22/17 Range/Units 04:15 04:15 Calcium 8.3 L (8.6-10.8) mg/dL Phosphorus 6.3 H (2.3-4.7) mg/dL Albumin 2.0 L (3.5-5.0) g/dL Pituitary panel 03/22/17 Range/Units 04:15 Sodium 133 L (136-145) mEq/L Potassium 3.3 L (3.5-4.5) mEq/L Chloride 89 L (98-109) mEq/L Carbon Dioxide 31 H (19-29) mEq/L BUN 66 H (8-26) mg/dL Creatinine 7.46 H (0.72-1.25) mg/dL Glucose 168 H (70-99) mg/dL Calcium 8.3 L (8.6-10.8) mg/dL Adrenal panel 03/22/17 Range/Units 04:15 Sodium 133 L (136-145) mEq/L Potassium 3.3 L (3.5-4.5) mEq/L Chloride 89 L (98-109) mEq/L Carbon Dioxide 31 H (19-29) mEq/L BUN 66 H (8-26) mg/dL Creatinine 7.46 H (0.72-1.25) mg/dL Glucose 168 H (70-99) mg/dL Calcium 8.3 L (8.6-10.8) mg/dL Total Bilirubin 0.4 (0.2-1.2) mg/dL AST 159 H (5-34) Units/L ALT 153 H (0-55) Units/L Alkaline Phosphatase 55 (38-126) Units/L Albumin 2.0 L (3.5-5.0) g/dL All other labs normal. - Attending Attestation The patient is seen and evaluated with resident on rounds. His abdomen is distended and he appears to have a significant ileus. We will continue to follow along closely. He may require nasogastric tube drainage. I examined this patient and my medical decision-making was reviewed with the Resident Physician. I agree with the documented findings, disposition and treatment plan as described except to the extent set forth below. Evans Curtis MD FACS
[2017-03-20] MEDS: *HR* Promethazine 25 MG/ML VIAL IVP PRN (21:59)
[2017-03-21] MEDS: Metoclopramide 10 MG/2 ML VIAL IVP PRN ×2 (00:55→06:52)
[2017-03-21] MEDS: *HR* Morphine 2 MG/ML SYRINGE IVP PRN ×2 (00:56→04:52)
[2017-03-21] MEDS: *HR* Promethazine 25 MG/ML VIAL IVP PRN (04:09)
[2017-03-21 05:34] LABS: Albumin 2.3 g/dL (3.5-5.0); Albumin/Globulin Ratio 0.6 (1.1-2.2); Bilirubin,Total 0.4 mg/dL (0.2-1.2); Calcium 8.5 mg/dL (8.6-10.8); Magnesium 1.7 mg/dL (1.6-2.6); Potassium 3.6 mEq/L (3.5-4.5); Total Protein 6.3 g/dL (6.0-8.3)
[2017-03-21] MEDS: *HR* Heparin 5,000 UNIT/ML VIAL SQ SCH ×2 (06:53→14:00)
[2017-03-21] MEDS: *HR* OxyCODONE Immed Rel 5 MG TABLET PO PRN (07:01)
--- NOTE | 2017-03-21 07:33 | Nephrology Progress Note ---
Date of Encounter: 03/21/17 Time of Encounter: 07:31 - Assessment and Plan (1) SHARON (acute kidney injury) Current Visit: Yes Status: Acute The patient has acute kidney injury in the setting of rhabdomyolysis. Patient' s renal function continues to worsen. The rate of rise of serum creatinine may be slowing. We will monitor the patient for one more day. If is any further increasing creatinine and he will have to have dialysis initiated. I suspect from the standpoint of his ileus is going require placement of an NG tube. (2) Rhabdomyolysis Current Visit: Yes Status: Acute Qualifiers: Rhabdomyolysis type: non-traumatic Qualified Code(s): M62.82 - Rhabdomyolysis (3) Ileus Current Visit: Yes Status: Acute Subjective Principal diagnosis: Rhabdo Interval history: The patient continues to experience abdominal pain along with increasing nausea and vomiting. Serum creatinine is rising but possibly at a slower rate. Objective - Vital Signs Vital signs: Vital Signs Temp Pulse Resp BP Pulse Ox 03/21/17 04:00 105 03/21/17 03:59 97.9 F 100 18 131/81 94 03/21/17 00:10 93 03/20/17 23:52 98.0 F 88 18 148/97 96 03/20/17 20:19 97.8 F 79 17 132/86 98 03/20/17 20:15 89 03/20/17 16:32 97.8 F 84 16 148/86 97 03/20/17 16:25 88 20 148/86 95 03/20/17 12:00 90 03/20/17 11:28 98.3 F 98 18 125/85 95 03/20/17 08:25 90 Intake and Output 03/20/17 03/20/17 03/21/17 15:59 23:59 07:59 Intake Total 1650 / 1650 1100 / 1100 10 / 10 Output Total 450 / 450 425 / 425 Balance 1650 / 1650 650 / 650 -415 / -415 Intake: IV Fluids 1150 / 1150 1100 / 1100 Sodium Bicarbonate 150 1150 / 1150 1100 / 1100 MEQ In Dextrose 5% 1,000 ML @ 100 mls/hr IVC . [id number] [facility] Rx#: [id number] Oral 500 / 500 10 / 10 Output: Urine 225 / 225 Urethral (Smith) 225 / 225 Catheter 225 / 225 225 / 225 Gastric Drainage 200 / 200 Other: Stool Size Moderate Stool Consistency loose liquid Weight 109.361 kg Blood Glucose* 197 198 - General Appearance Exam: Patient appears acutely ill. Vital signs are stable. Smith catheter is in place. Lungs breath sounds otherwise clear. Heart regular rate and rhythm. Abdomen remains distended. There are high-pitched bowel sounds. There is diffuse tenderness. There is some mild lower extremity swelling. - Lab 03/19/17 04:48 03/21/17 04:36 Most recent lab results Calcium 8.5 mg/dL (8.6-10.8) L 03/21/17 04:36 Magnesium 1.7 mg/dL (1.6-2.6) 03/21/17 04:36 Consult Discharge Plan - Plan Referrals: ALTA DELGADILLO [Other] - 04/01/17 4:15 pm NONE,PCP [Primary Care Provider] -
--- NOTE | 2017-03-21 09:03 | Event Note ---
Date of Encounter: 03/21/17 Time of Encounter: 07:45 I was called to see the patient for increased vomiting. The patient states that he has abdominal pain worse after vomiting than before. His primary complaint is nausea and vomiting. He is previously had scopic cholecystectomy and therapy for right renal stone. He is currently under therapy for rhabdo mild lysis with associated acute renal failure. On physical examination his abdomen is distended there is no guarding and no rebound he has pain to deep palpation diffusely. He is vomiting during examination I think it is reasonable to place a nasogastric tube. His white blood cell count is normal. His liver function tests are improving. He will receive a flat and upright abdomen checking for any signs of bowel obstruction. I saw no signs of perioperative complications associated with cholecystectomy. There were no signs of fluid around the gallbladder fossa. I do not suspect that he has bile leak. We will continue to follow closely.
[2017-03-21] MEDS: Sucralfate 1 GM TABLET PO SCH ×4 (09:13→22:04)
[2017-03-21] MEDS: Aspirin 81 MG TAB.CHEW PO SCH (09:13)
[2017-03-21] MEDS: Sennosides/Docusate Sodium TABLET PO SCH ×2 (09:13→22:04)
[2017-03-21] MEDS: amLODIPine 5 MG TABLET PO SCH ×2 (09:13→22:04)
[2017-03-21] MEDS: Sodium Bicarbonate 150 MEQ in D5% in Water 1,000 ML IVC SCH ×2 (09:14→11:43)
[2017-03-21] MEDS: Insulin LISPRO 300 UNITS/3 ML VIAL SQ SCH ×4 (09:15→22:04)
--- NOTE | 2017-03-21 10:32 | Event Note ---
Date of Encounter: 03/21/17 Time of Encounter: 10:45 Abdominal films demonstrate diffuse dilated small bowel with air in the colon consistent with ileus. Nasogastric tubes in the stomach. The nasogastric tube should provide some symptomatic relief from his ileus. We will continue to follow. If the ileus persists past 48 hours a small bowel follow through will be ordered.
--- NOTE | 2017-03-21 10:39 | Internal Med Progress Note ---
Date of Encounter: 03/21/17 Time of Encounter: 10:37 - Assessment and plan (1) SHARON (acute kidney injury) Current Visit: Yes Status: Acute Assessment and plan: Noted to have acute renal failure. Per patient's , he carries no diagnosis of chronic kidney disease. However, his renal dysfunction began during the recent admission at [facility] for urinary retention and right- sided hydroureter/hydronephrosis due to ureterolithiasis. He had placement of right ureteral stent and subsequent removal. Serum creatinine continues to be worsening at this time, 6.8 today, although the rate has slowed; improving metabolic acidosis. Nephrology consult and f/up appreciated- continue IV bicarbonate drip, may require DISBURSEMENT CLERK if creatinine continues to worsen tomorrow. Avoid new nephrotoxic agents. (2) Ileus Current Visit: Yes Status: Acute Assessment and plan: CT abdomen and pelvis shows dilated small bowel loops with air fluid levels with no transition point, suggestive of ileus. Worsening associated with persistent vomiting. Continue to keep nothing by mouth with when necessary antiemetics. Surgery consult and follow-up appreciated, recommended abdominal flat plate x-ray, which revealed dilated loops of small bowel. Nasogastric tube has been recommended and placed with significant gastric output immediately after placement. Continue to monitor. Recommend small bowel follow -through if more than 48 hours of persistent symptoms. Monitor and replete electrolytes. (3) Rhabdomyolysis Current Visit: Yes Status: Acute Assessment and plan: Significant bilateral lower extremity weakness leading to ground level fall and remaining on the ground for about 8 hours. Also noted to be on statin. Continue aggressive IV hydration, suspect acute kidney injury related to rhabdomyolysis. Serum creatinine kinase noted to be improving, down to 4K today ; Monitor urine output closely. Qualifiers: Rhabdomyolysis type: non-traumatic Qualified Code(s): M62.82 - Rhabdomyolysis (4) Elevated troponin Current Visit: Yes Status: Resolved (5) UTI (urinary tract infection) Current Visit: Yes Status: Ruled-out Qualifiers: Urinary tract infection type: site unspecified Hematuria presence: without hematuria Qualified Code(s): N39.0 - Urinary tract infection, site not specified (6) Bilateral leg weakness Current Visit: Yes Status: Acute Assessment and plan: Likely secondary to fall and rhabdomyolysis. CT cervical and lumbar spine shows no acute abnormality/stenosis/nerve root compression. Continue pain control with cautious use of oral Percocet and IV morphine. Physical and occupational therapy evaluation noted- recommend IP rehab placement. financial services agent consulted. (7) Urinary retention Current Visit: Yes Status: Acute Assessment and plan: Continue Smith catheter and monitor urine output. CT abdomen/pelvis showed right renal nonobstructive stones. Renal ultrasound shows nonobstructing stone in the lower pole of right kidney, no hydronephrosis or hydroureter. Continue to monitor closely. (8) Transaminitis Current Visit: Yes Status: Acute Assessment and plan: Currently improving. Could be related to recent laparoscopic cholecystectomy with retained stone/bile leak, acute renal failure. (9) Hypokalemia Current Visit: Yes Status: Resolved (10) Hypertension Current Visit: Yes Status: Chronic Qualifiers: Hypertension type: essential hypertension Qualified Code(s): I10 - Essential (primary) hypertension (11) Diabetes mellitus Current Visit: Yes Status: Chronic Assessment and plan: Continue Accu-Chek blood glucose monitoring with sliding scale insulin. Currently NPO. Qualifiers: Diabetes mellitus type: type 2 Diabetes mellitus complication status: with unspecified complications Diabetes mellitus usp insulin use: without terminal worker use Qualified Code(s): E11.8 - Type 2 diabetes mellitus with unspecified complications - Subjective Interval history: Developed significant nausea associated with vomiting since last evening; seen by Surgery today and received NG tube with symptomatic relief and >800cc output so far; improving abdominal pain; no bowel movements; - Constitutional Vitals: Temp Pulse Resp BP Pulse Ox 98.0 F 94 18 126/84 95 03/21/17 07:19 03/21/17 09:15 03/21/17 07:19 03/21/17 07:19 03/21/17 07:19 General appearance: Present: cooperative, A&O X 3, obese, answers questions appropriately - Respiratory Respiratory exam: Present: CTAB. Absent: accessory muscle use, rales, rhonchi, wheezes - Cardiovascular Cardiovascular exam: Present: RRR, +S1, +S2. Absent: diastolic murmur, gallop, rubs, systolic murmur - GI/Abdominal GI/Abdominal exam: Present: diminished bowel sounds, distended (tympanic note), soft (improving diffuse tenderness), no peritoneal signs. Absent: tenderness - Extremities Exam Extremities exam: Present: pedal edema, warm, radial pulses palpable and symmetrical. Absent: calf tenderness, cyanotic Internal Medicine: Result - Labs CBC & Chem 7: 03/19/17 04:48 03/21/17 04:36 Labs: BMP 03/21/17 04:36 Sodium 132 L Potassium 3.6 Chloride 92 L Carbon Dioxide 22 BUN 57 H Creatinine 6.88 H Glucose 233 H Calcium 8.5 L Liver Function 03/21/17 Range/Units 04:36 Total Bilirubin 0.4 (0.2-1.2) mg/dL AST 181 H (5-34) Units/L ALT 181 H (0-55) Units/L Alkaline Phosphatase 67 (38-126) Units/L Albumin 2.3 L (3.5-5.0) g/dL - ABG Interpretation ABG results: PT/INR, D-dimer PT 16.1 Seconds (9.4-12.1) H 03/18/17 00:01 - Impressions Impressions Chest/Abdomen X-ray 03/21/17 08:13 IMPRESSION: Dilated loops of small and large bowel compatible with ileus. D/ / Donal Short MD / Donal Short MD Interpreting Provider: Donal Short MD Consult Discharge Plan - Plan Referrals: ALTA DELGADILLO [Other] - 04/01/17 4:15 pm NONE,PCP [Primary Care Provider] -
--- NOTE | 2017-03-21 12:33 | General Surgery Progress Note ---
<Eren Sarmiento - Last Filed: 03/21/17 12:30> Date of Encounter: 03/21/17 Time of Encounter: 11:00 - Assessment and Plan (1) Ileus Current Visit: Yes Status: Acute Acute abdominal series redemonstrates ileus without signs of perforation LFTs improved, no sign of bile leak Most likely related to SHARON and rhabdo Started NGT considering lack of improvement from yesterday Continue IVF, antiemetics, and supportive care Serial abdominal examinations We will follow along with you (2) SHARON (acute kidney injury) Current Visit: Yes Status: Acute Managed per nephro (3) Rhabdomyolysis Current Visit: Yes Status: Acute Improving Managed per medicine Qualifiers: Rhabdomyolysis type: non-traumatic Qualified Code(s): M62.82 - Rhabdomyolysis Subjective Patient reports: still having pain, no flatus, no bowel movement, nausea, vomiting, afebrile Objective Vital Signs - Last 8 Hours Temp Pulse Resp BP Pulse Ox 03/21/17 12:13 78 03/21/17 11:24 98.3 F 76 16 115/77 94 03/21/17 09:15 94 03/21/17 07:19 98.0 F 97 18 126/84 95 Intake and Output 03/20/17 03/21/17 03/21/17 23:59 07:59 15:59 Intake Total 1100 / 1100 1150 / 1150 Output Total 450 / 450 425 / 425 1620 / 1620 Balance 650 / 650 -415 / -415 -470 / -470 Intake: IV Fluids 1100 / 1100 1150 / 1150 Sodium Bicarbonate 150 1100 / 1100 1150 / 1150 MEQ In Dextrose 5% 1,000 ML @ 100 mls/hr IVC . [id number] [facility] Rx#: [id number] Oral 0 / 0 Output: Urine 225 / 225 Urethral (Smith) 225 / 225 Gastric Tube Lavage 810 / 810 Amount Right Nare 810 / 810 Catheter 225 / 225 225 / 225 Gastric Drainage 200 / 200 810 / 810 Other: Meal Breakfast Percent of Meal Consumed 0% Weight 109.361 kg Blood Glucose* 198 246 208 - General physical appearance well developed, well nourished, moderate pain - Eyes normal ocular movement - ENT atraumatic, normocephalic - Neck Neck exam: trachea midline - Respiratory normal expansion, normal respiratory effort, clear to auscultation - Abdomen Abdomen: Present: bowel sounds present, distended. Absent: guarding, rebound Abdominal Tenderness: diffusely - Incision Incision: Present: clean and dry, intact - Musculoskeletal normal posture - Psychiatric speech is normal - Labs 03/19/17 04:48 03/21/17 04:36 Diabetes panel 03/21/17 Range/Units 04:36 Sodium 132 L (136-145) mEq/L Potassium 3.6 (3.5-4.5) mEq/L Chloride 92 L (98-109) mEq/L Carbon Dioxide 22 (19-29) mEq/L BUN 57 H (8-26) mg/dL Creatinine 6.88 H (0.72-1.25) mg/dL Glucose 233 H (70-99) mg/dL Calcium 8.5 L (8.6-10.8) mg/dL AST 181 H (5-34) Units/L ALT 181 H (0-55) Units/L Alkaline Phosphatase 67 (38-126) Units/L Albumin 2.3 L (3.5-5.0) g/dL Calcium panel 03/21/17 Range/Units 04:36 Calcium 8.5 L (8.6-10.8) mg/dL Albumin 2.3 L (3.5-5.0) g/dL Pituitary panel 03/21/17 Range/Units 04:36 Sodium 132 L (136-145) mEq/L Potassium 3.6 (3.5-4.5) mEq/L Chloride 92 L (98-109) mEq/L Carbon Dioxide 22 (19-29) mEq/L BUN 57 H (8-26) mg/dL Creatinine 6.88 H (0.72-1.25) mg/dL Glucose 233 H (70-99) mg/dL Calcium 8.5 L (8.6-10.8) mg/dL Adrenal panel 03/21/17 Range/Units 04:36 Sodium 132 L (136-145) mEq/L Potassium 3.6 (3.5-4.5) mEq/L Chloride 92 L (98-109) mEq/L Carbon Dioxide 22 (19-29) mEq/L BUN 57 H (8-26) mg/dL Creatinine 6.88 H (0.72-1.25) mg/dL Glucose 233 H (70-99) mg/dL Calcium 8.5 L (8.6-10.8) mg/dL Total Bilirubin 0.4 (0.2-1.2) mg/dL AST 181 H (5-34) Units/L ALT 181 H (0-55) Units/L Alkaline Phosphatase 67 (38-126) Units/L Albumin 2.3 L (3.5-5.0) g/dL - Imaging Abdominal x-ray: report reviewed, image reviewed Additional Studies: XR/XR acute abdominal series IMPRESSION: Dilated loops of small and large bowel compatible with ileus. D/ / Donal Short MD / Donal Short MD Interpreting Provider: Donal Short MD Consult Discharge Plan - Plan Referrals: ALTA DELGADILLO [Other] - 04/01/17 4:15 pm NONE,PCP [Primary Care Provider] - <Evans Curtis - Last Filed: 03/22/17 09:16> Date of Encounter: 03/21/17 Objective Vital Signs - Last 8 Hours Temp Pulse Resp BP Pulse Ox 03/22/17 08:11 97.8 F 78 18 128/80 98 03/22/17 07:59 82 03/22/17 06:49 76 03/22/17 04:35 97.7 F 84 18 132/82 98 Intake and Output 03/21/17 03/22/17 03/22/17 23:59 07:59 15:59 Intake Total 1000 / 1000 Output Total 200 / 200 500 / 500 Balance 800 / 800 -500 / -500 Intake: IV Fluids 1000 / 1000 Sodium Bicarbonate 150 1000 / 1000 MEQ In Dextrose 5% 1,000 ML @ 100 mls/hr IVC . [id number] [facility] Rx#: [id number] Output: Gastric Tube Lavage 200 / 200 Amount Right Nare 200 / 200 Gastric Drainage 500 / 500 Other: Stool Size Moderate Small Stool Consistency loose liquid liquid Stool Characteristics Mucoid Stool Color Brown Blood Glucose* 155 187 - Labs 03/19/17 04:48 03/22/17 04:15 Diabetes panel 03/22/17 Range/Units 04:15 Sodium 133 L (136-145) mEq/L Potassium 3.3 L (3.5-4.5) mEq/L Chloride 89 L (98-109) mEq/L Carbon Dioxide 31 H (19-29) mEq/L BUN 66 H (8-26) mg/dL Creatinine 7.46 H (0.72-1.25) mg/dL Glucose 168 H (70-99) mg/dL Calcium 8.3 L (8.6-10.8) mg/dL AST 159 H (5-34) Units/L ALT 153 H (0-55) Units/L Alkaline Phosphatase 55 (38-126) Units/L Albumin 2.0 L (3.5-5.0) g/dL Calcium panel 03/22/17 03/22/17 Range/Units 04:15 04:15 Calcium 8.3 L (8.6-10.8) mg/dL Phosphorus 6.3 H (2.3-4.7) mg/dL Albumin 2.0 L (3.5-5.0) g/dL Pituitary panel 03/22/17 Range/Units 04:15 Sodium 133 L (136-145) mEq/L Potassium 3.3 L (3.5-4.5) mEq/L Chloride 89 L (98-109) mEq/L Carbon Dioxide 31 H (19-29) mEq/L BUN 66 H (8-26) mg/dL Creatinine 7.46 H (0.72-1.25) mg/dL Glucose 168 H (70-99) mg/dL Calcium 8.3 L (8.6-10.8) mg/dL Adrenal panel 03/22/17 Range/Units 04:15 Sodium 133 L (136-145) mEq/L Potassium 3.3 L (3.5-4.5) mEq/L Chloride 89 L (98-109) mEq/L Carbon Dioxide 31 H (19-29) mEq/L BUN 66 H (8-26) mg/dL Creatinine 7.46 H (0.72-1.25) mg/dL Glucose 168 H (70-99) mg/dL Calcium 8.3 L (8.6-10.8) mg/dL Total Bilirubin 0.4 (0.2-1.2) mg/dL AST 159 H (5-34) Units/L ALT 153 H (0-55) Units/L Alkaline Phosphatase 55 (38-126) Units/L Albumin 2.0 L (3.5-5.0) g/dL - Attending Attestation I examined this patient and my medical decision-making was reviewed with the Resident Physician. I agree with the documented findings, disposition and treatment plan as described except to the extent set forth below. The patient is seen and evaluated in the morning rounds. He would benefit from nasogastric tube drainage. I still believe that this is not a mechanical obstruction. Believe that this is ileus secondary to metabolic abnormalities as a result of rhabdomyolysis Evans Curtis MD FACS
[2017-03-22] MEDS: *HR* Heparin 5,000 UNIT/ML VIAL SQ SCH ×4 (01:42→22:56)
[2017-03-22] MEDS: Sodium Bicarbonate 150 MEQ in D5% in Water 1,000 ML IVC SCH (01:42)
[2017-03-22 05:20] LABS: Albumin/Globulin Ratio 0.6 (1.1-2.2); Bilirubin,Total 0.4 mg/dL (0.2-1.2); Calcium 8.3 mg/dL (8.6-10.8); Globulin 3.3 g/dL (2.4-3.5); Potassium 3.3 mEq/L (3.5-4.5); Total Protein 5.3 g/dL (6.0-8.3)
[2017-03-22 05:21] LABS: Magnesium 1.6 mg/dL (1.6-2.6); Phosphorous 6.3 mg/dL (2.3-4.7)
[2017-03-22] MEDS: Aspirin 81 MG TAB.CHEW PO SCH (07:22)
[2017-03-22] MEDS: Sennosides/Docusate Sodium TABLET PO SCH ×2 (07:23→22:49)
[2017-03-22] MEDS: amLODIPine 5 MG TABLET PO SCH ×2 (07:23→22:48)
[2017-03-22] MEDS: Sucralfate 1 GM TABLET PO SCH ×4 (07:23→22:48)
[2017-03-22] MEDS: Insulin LISPRO 300 UNITS/3 ML VIAL SQ SCH ×3 (08:31→18:40)
--- NOTE | 2017-03-22 08:33 | Nephrology Progress Note ---
Date of Encounter: 03/22/17 Time of Encounter: 08:31 - Assessment and Plan (1) SHARON (acute kidney injury) Current Visit: Yes Status: Acute The patient has acute kidney injury in the setting of rhabdomyolysis. Patient' s renal function continues to worsen. The patient is going to have to be initiated on dialysis. We will consult interventional radiology to place a temporary dialysis catheter. I reviewed the plan with the patient and his and they are both in agreement. (2) Rhabdomyolysis Current Visit: Yes Status: Acute Qualifiers: Rhabdomyolysis type: non-traumatic Qualified Code(s): M62.82 - Rhabdomyolysis (3) Ileus Current Visit: Yes Status: Acute Subjective Principal diagnosis: Rhabdo Interval history: Patient had NG tube placed yesterday. His abdominal discomfort nausea and vomiting have all improved. Unfortunately his renal function continues to worsen. Urine output remains on the low side. Objective - Vital Signs Vital signs: Vital Signs Temp Pulse Resp BP Pulse Ox 03/22/17 08:11 97.8 F 78 18 128/80 98 03/22/17 07:59 82 03/22/17 06:49 76 03/22/17 04:35 97.7 F 84 18 132/82 98 03/22/17 00:20 101 03/22/17 00:09 97.8 F 88 16 123/84 95 03/21/17 20:26 97.7 F 75 16 124/77 97 03/21/17 19:50 84 03/21/17 16:57 76 03/21/17 16:25 98.0 F 82 16 117/82 99 03/21/17 12:13 78 03/21/17 11:24 98.3 F 76 16 115/77 94 03/21/17 09:15 94 Intake and Output 03/21/17 03/22/17 03/22/17 23:59 07:59 15:59 Intake Total 1000 / 1000 Output Total 200 / 200 500 / 500 Balance 800 / 800 -500 / -500 Intake: IV Fluids 1000 / 1000 Sodium Bicarbonate 150 1000 / 1000 MEQ In Dextrose 5% 1,000 ML @ 100 mls/hr IVC . [id number] [facility] Rx#: [id number] Output: Gastric Tube Lavage 200 / 200 Amount Right Nare 200 / 200 Gastric Drainage 500 / 500 Other: Stool Size Moderate Small Stool Consistency loose liquid liquid Stool Characteristics Mucoid Stool Color Brown Blood Glucose* 155 187 - General Appearance Exam: Patient is alert and oriented. He is in no acute distress. NG tube is in place. Lungsbreath sounds otherwise clear. Heart regular rate and rhythm. Abdomen is much softer. There is less distention. There is less tenderness. There is some mild lower extremity swelling. - Lab 03/19/17 04:48 03/22/17 04:15 Most recent lab results Calcium 8.3 mg/dL (8.6-10.8) L 03/22/17 04:15 Phosphorus 6.3 mg/dL (2.3-4.7) H 03/22/17 04:15 Magnesium 1.6 mg/dL (1.6-2.6) 03/22/17 04:15 Consult Discharge Plan - Plan Referrals: ALTA DELGADILLO [Other] - 04/01/17 4:15 pm NONE,PCP [Primary Care Provider] -
[2017-03-22] MEDS ORDERED: 0.9 % Sodium Chloride 250 ML IVC PRN (08:34)
[2017-03-22] MEDS: 0.9 % Sodium Chloride 1,000 ML IVC SCH (09:53)
--- NOTE | 2017-03-22 09:56 | General Surgery Progress Note ---
Date of Encounter: 03/22/17 Time of Encounter: 07:50 - Assessment and Plan (1) Ileus Current Visit: Yes Status: Acute The ileus is likely secondary to metabolic abnormalities associated with rhabdomyolysis and renal failure. I will follow along very closely. If the nasogastric tube drainage remains high we will get small bowel follow-through. Subjective Narrative: The patient has less abdominal pain today. He has less abdominal distention. He has a significant ileus and the nasogastric tube put out 1300 mL. I would leave the nasogastric tube in place today. I do not believe that this is a mechanical obstruction of the bowel. I believe that he has significant ileus in response to metabolic abnormalities secondary to rhabdomyolysis. I will continue to follow along closely. If the nasogastric tube remains high-volume drainage, we will get small bowel follow-through. Objective Vital Signs - Last 8 Hours Temp Pulse Resp BP Pulse Ox 03/22/17 08:11 97.8 F 78 18 128/80 98 03/22/17 07:59 82 03/22/17 06:49 76 03/22/17 04:35 97.7 F 84 18 132/82 98 Intake and Output 03/21/17 03/22/17 03/22/17 23:59 07:59 15:59 Intake Total 1000 / 1000 Output Total 200 / 200 500 / 500 Balance 800 / 800 -500 / -500 Intake: IV Fluids 1000 / 1000 Sodium Bicarbonate 150 1000 / 1000 MEQ In Dextrose 5% 1,000 ML @ 100 mls/hr IVC . [id number] [facility] Rx#: [id number] Output: Gastric Tube Lavage 200 / 200 Amount Right Nare 200 / 200 Gastric Drainage 500 / 500 Other: Stool Size Moderate Small Stool Consistency loose liquid liquid Stool Characteristics Mucoid Stool Color Brown Blood Glucose* 155 187 - General physical appearance chronically ill, obese - Abdomen Abdomen: Present: distended, tender (Mild tenderness with no guarding or rebound ) - Incision Incision: Present: clean and dry (All laparoscopy incisions are stapled clean and dry) - Neurologic normal coordination, normal sensation - Labs 03/19/17 04:48 03/22/17 04:15 Diabetes panel 03/22/17 Range/Units 04:15 Sodium 133 L (136-145) mEq/L Potassium 3.3 L (3.5-4.5) mEq/L Chloride 89 L (98-109) mEq/L Carbon Dioxide 31 H (19-29) mEq/L BUN 66 H (8-26) mg/dL Creatinine 7.46 H (0.72-1.25) mg/dL Glucose 168 H (70-99) mg/dL Calcium 8.3 L (8.6-10.8) mg/dL AST 159 H (5-34) Units/L ALT 153 H (0-55) Units/L Alkaline Phosphatase 55 (38-126) Units/L Albumin 2.0 L (3.5-5.0) g/dL Calcium panel 03/22/17 03/22/17 Range/Units 04:15 04:15 Calcium 8.3 L (8.6-10.8) mg/dL Phosphorus 6.3 H (2.3-4.7) mg/dL Albumin 2.0 L (3.5-5.0) g/dL Pituitary panel 03/22/17 Range/Units 04:15 Sodium 133 L (136-145) mEq/L Potassium 3.3 L (3.5-4.5) mEq/L Chloride 89 L (98-109) mEq/L Carbon Dioxide 31 H (19-29) mEq/L BUN 66 H (8-26) mg/dL Creatinine 7.46 H (0.72-1.25) mg/dL Glucose 168 H (70-99) mg/dL Calcium 8.3 L (8.6-10.8) mg/dL Adrenal panel 03/22/17 Range/Units 04:15 Sodium 133 L (136-145) mEq/L Potassium 3.3 L (3.5-4.5) mEq/L Chloride 89 L (98-109) mEq/L Carbon Dioxide 31 H (19-29) mEq/L BUN 66 H (8-26) mg/dL Creatinine 7.46 H (0.72-1.25) mg/dL Glucose 168 H (70-99) mg/dL Calcium 8.3 L (8.6-10.8) mg/dL Total Bilirubin 0.4 (0.2-1.2) mg/dL AST 159 H (5-34) Units/L ALT 153 H (0-55) Units/L Alkaline Phosphatase 55 (38-126) Units/L Albumin 2.0 L (3.5-5.0) g/dL Consult Discharge Plan - Plan Referrals: ALTA DELGADILLO [Other] - 04/01/17 4:15 pm NONE,PCP [Primary Care Provider] -
--- NOTE | 2017-03-22 11:23 | Internal Med Progress Note ---
Date of Encounter: 03/22/17 Time of Encounter: 11:21 - Assessment and plan (1) SHARON (acute kidney injury) Current Visit: Yes Status: Acute Assessment and plan: Noted to have acute renal failure. Per patient's , he carries no diagnosis of chronic kidney disease. However, his renal dysfunction began during the recent admission at [facility] for urinary retention and right- sided hydroureter/hydronephrosis due to ureterolithiasis. He had placement of right ureteral stent and subsequent removal. Serum creatinine continues to be worsening at this time, 7.5 today; improved metabolic acidosis. Nephrology consult and f/up appreciated- plan for placement of temporary hemodialysis catheter today with subsequent hemodialysis. IV fluids changed to normal saline. Avoid new nephrotoxic agents. (2) Ileus Current Visit: Yes Status: Acute Assessment and plan: CT abdomen and pelvis shows dilated small bowel loops with air fluid levels with no transition point, suggestive of ileus. Patient significantly improved symptomatically after nasogastric tube placement. Continues to have high NG tube output at this time, at least 800 mL since morning. Continue to keep nothing by mouth with when necessary antiemetics. Surgery consult and follow- up appreciated, possible small bowel follow-through tomorrow. Monitor and replete electrolytes. (3) Rhabdomyolysis Current Visit: Yes Status: Acute Assessment and plan: Significant bilateral lower extremity weakness leading to ground level fall and remaining on the ground for about 8 hours. Also noted to be on statin. Continue aggressive IV hydration, suspect acute kidney injury related to rhabdomyolysis. Serum creatinine kinase improving; Monitor urine output closely. Qualifiers: Rhabdomyolysis type: non-traumatic Qualified Code(s): M62.82 - Rhabdomyolysis (4) Elevated troponin Current Visit: Yes Status: Resolved (5) UTI (urinary tract infection) Current Visit: Yes Status: Ruled-out Qualifiers: Urinary tract infection type: site unspecified Hematuria presence: without hematuria Qualified Code(s): N39.0 - Urinary tract infection, site not specified (6) Bilateral leg weakness Current Visit: Yes Status: Acute Assessment and plan: Likely secondary to fall and rhabdomyolysis. CT cervical and lumbar spine shows no acute abnormality/stenosis/nerve root compression. Continue pain control with cautious use of oral Percocet and IV morphine. Physical and occupational therapy evaluation noted- recommend IP rehab placement. nutrition services worker consulted. (7) Urinary retention Current Visit: Yes Status: Acute Assessment and plan: Continue Smith catheter and monitor urine output. CT abdomen/pelvis showed right renal nonobstructive stones. Renal ultrasound shows nonobstructing stone in the lower pole of right kidney, no hydronephrosis or hydroureter. Continue to monitor closely. (8) Transaminitis Current Visit: Yes Status: Acute (9) Hypokalemia Current Visit: Yes Status: Acute Assessment and plan: Will hold off potassium supplements, will likely be corrected during hemodialysis. (10) Hypertension Current Visit: Yes Status: Chronic Qualifiers: Hypertension type: essential hypertension Qualified Code(s): I10 - Essential (primary) hypertension (11) Diabetes mellitus Current Visit: Yes Status: Chronic Assessment and plan: Continue Accu-Chek blood glucose monitoring with sliding scale insulin. Currently NPO. Qualifiers: Diabetes mellitus type: type 2 Diabetes mellitus complication status: with unspecified complications Diabetes mellitus exterminator helper termite insulin use: without assisted use Qualified Code(s): E11.8 - Type 2 diabetes mellitus with unspecified complications - Subjective Interval history: Nausea and vomiting resolved and abdomen feels much more comfortable since NG tube placement; continues to have some output from NG tube; has generalized weakness and abdominal distension; report having flatus and BMs; awaiting HD catheter placement and HD today; - Constitutional Vitals: Temp Pulse Resp BP Pulse Ox 97.8 F 75 18 128/80 98 03/22/17 08:11 03/22/17 11:12 03/22/17 08:11 03/22/17 08:11 03/22/17 08:11 General appearance: Present: cooperative, A&O X 3, obese, answers questions appropriately - Respiratory Respiratory exam: Present: CTAB. Absent: accessory muscle use, rales, rhonchi, wheezes - Cardiovascular Cardiovascular exam: Present: RRR, +S1, +S2. Absent: diastolic murmur, gallop, rubs, systolic murmur - GI/Abdominal GI/Abdominal exam: Present: distended (tympanic note+), normal bowel sounds, soft, no peritoneal signs. Absent: tenderness - Extremities Exam Extremities exam: Present: pedal edema, warm, radial pulses palpable and symmetrical. Absent: calf tenderness, cyanotic - Neurological Exam Neurological exam: Present: CN II-XII intact, oriented X3, no focal deficits. Absent: pronater drift, facial droop, speech deficit Internal Medicine: Result - Labs CBC & Chem 7: 03/19/17 04:48 03/22/17 04:15 Labs: BMP 03/22/17 04:15 Sodium 133 L Potassium 3.3 L Chloride 89 L Carbon Dioxide 31 H BUN 66 H Creatinine 7.46 H Glucose 168 H Calcium 8.3 L Liver Function 03/22/17 Range/Units 04:15 Total Bilirubin 0.4 (0.2-1.2) mg/dL AST 159 H (5-34) Units/L ALT 153 H (0-55) Units/L Alkaline Phosphatase 55 (38-126) Units/L Albumin 2.0 L (3.5-5.0) g/dL - ABG Interpretation ABG results: PT/INR, D-dimer PT 16.1 Seconds (9.4-12.1) H 03/18/17 00:01 - Impressions Impressions Abdomen/Pelvis CT 03/19/17 14:00 IMPRESSION: Nonobstructing stones in the right kidney without evidence of hydronephrosis. Nonobstructing 4 mm stone in the left posterolateral bladder. Distended loops of small and large bowel throughout the abdomen and pelvis without focal obstruction. Findings suggest ileus. This is new since the prior examination. Small amount of ascites and inflammatory fluid in the abdomen and pelvis particularly in the right paracolic gutter and right pelvis. This may related to the ileus. This is nonspecific and new since the prior exam. Enlarged prostate gland suggesting prostatic hypertrophy. Estimated prostate volume of 150 mL. Appendicolith without appendicitis. Diverticulosis without evidence of acute diverticulitis. D/ / 03/19/2017 14:45:47 Jonathan Felton MD / thomas Interpreting Provider: Jonathan Felton MD Consult Discharge Plan - Plan Referrals: ALTA DELGADILLO [Other] - 04/01/17 4:15 pm NONE,PCP [Primary Care Provider] -
[2017-03-22] MEDS ORDERED: *HR* Heparin 5,000 UNIT/ML VIAL ONE (11:38)
[2017-03-22] MEDS ORDERED: Benzocaine 20% 9 GM GEL..GRAM. TP PRN (11:59)
--- NOTE | 2017-03-22 12:13 | IR Procedure Note ---
Date of procedure: 03/22/17 Consent Obtained: Written consent Timeout: Correct patient and procedure verified, Correct site verified, Time out performed, Skin prep completed Local anesthetic: Lidocaine 1% Indications: Renal insufficiency Procedure Performed: Temp HD catheter placement Site/Technique: RIJV used for access. Results/Findings: 20cm catheter placed. Estimated blood loss (cc): 2 Complications: None; Tolerated procedure well Post Procedure Treatment Plan: Monitoring in VIR
[2017-03-22] MEDS: Pantoprazole 40 MG VIAL IVP SCH (15:19)
[2017-03-22] MEDS ORDERED: 0.9 % Sodium Chloride 1,000 ML ONE (16:06)
[2017-03-22 23:47] LABS: Hepatitis B Surface Antibody 1.75 mIU/mL; Hepatitis B Surface Antigen Nonreactive (Nonreactive)
[2017-03-23 05:52] LABS: Basophils % 0.5 %; Eosinophils # 0.1 K/mcL (0.0-0.6); Eosinophils % 1.8 %; Hematocrit 29.3 % (37.5-50.1); Hemoglobin 9.8 g/dL (12.9-16.9); Immature Granulocytes % 0.7 % (0-4); Lymphocytes # 0.9 K/mcL (0.6-4.6); Lymphocytes % 12.1 %; Mean Corpuscular HGB Conc 33.4 g/dL (31.6-35.5); Mean Corpuscular Hemoglobin 27.1 pg (28.0-33.3); Mean Corpuscular Volume 80.9 fL (83.0-100.0); Mean Platelet Volume 9.1 fL (9.4-12.4); Monocytes # 0.8 K/mcL (0.0-1.3); Monocytes % 10.1 %; Neutrophils # 5.7 K/mcL (1.6-8.9); Platelet Count 410 K/mcL (140-400); Red Blood Count 3.62 M/mcL (4.19-5.50); Red Cell Distribution Width 13.7 % (11.5-14.5); Segmented Neutrophils % 74.8 %
[2017-03-23 06:13] LABS: Albumin 2.1 g/dL (3.5-5.0); Albumin/Globulin Ratio 0.6 (1.1-2.2); Bilirubin,Total 0.5 mg/dL (0.2-1.2); Calcium 8.5 mg/dL (8.6-10.8); Globulin 3.3 g/dL (2.4-3.5); Magnesium 1.6 mg/dL (1.6-2.6); Potassium 3.8 mEq/L (3.5-4.5); Total Protein 5.4 g/dL (6.0-8.3)
[2017-03-23] MEDS: Pantoprazole 40 MG VIAL IVP SCH (06:55)
[2017-03-23] MEDS: *HR* Heparin 5,000 UNIT/ML VIAL SQ SCH ×3 (07:04→20:23)
[2017-03-23] MEDS ORDERED: 0.9 % Sodium Chloride 250 ML IVC PRN (08:01)
--- NOTE | 2017-03-23 08:01 | Nephrology Progress Note ---
Date of Encounter: 03/23/17 Time of Encounter: 07:59 - Assessment and Plan (1) SHARON (acute kidney injury) Current Visit: Yes Status: Acute The patient has acute kidney injury in the setting of rhabdomyolysis. Dialysis was initiated yesterday. There is no sign of renal recovery. Patient will undergo dialysis again today. (2) Rhabdomyolysis Current Visit: Yes Status: Acute Qualifiers: Rhabdomyolysis type: non-traumatic Qualified Code(s): M62.82 - Rhabdomyolysis (3) Ileus Current Visit: Yes Status: Acute Subjective Principal diagnosis: Rhabdo Interval history: Patient reports is feeling better. His less abdominal discomfort and no nausea. He underwent dialysis yesterday. Urine output is recorded as 825 mL. NG drainage 950 mL. Serum creatinine mildly improved. Still has some peripheral edema on exam. Objective - Vital Signs Vital signs: Vital Signs Temp Pulse Resp BP Pulse Ox 03/23/17 07:33 98.2 F 18 149/87 96 03/23/17 04:03 98.0 F 79 18 131/82 99 03/23/17 04:00 73 03/22/17 23:26 98.5 F 99 17 118/99 95 03/22/17 23:15 108 03/22/17 20:00 18 96 03/22/17 19:50 89 03/22/17 19:17 97.5 F L 88 18 123/89 96 03/22/17 18:10 98.3 F 18 140/86 03/22/17 17:50 136/82 03/22/17 17:35 133/89 03/22/17 17:20 118/89 03/22/17 17:05 131/89 03/22/17 16:50 128/82 03/22/17 16:35 131/89 03/22/17 16:20 131/87 03/22/17 16:05 144/91 03/22/17 15:50 97.4 F L 18 137/90 03/22/17 15:27 85 03/22/17 15:17 98.1 F 100 16 129/78 92 03/22/17 12:04 98.0 F 79 18 131/95 95 03/22/17 11:12 75 03/22/17 08:11 97.8 F 78 18 128/80 98 Intake and Output 03/22/17 03/22/1717 15:59 23:59 07:59 Intake Total 1428 / 1428 Output Total 950 / 950 2425 / 2425 1500 / 1500 Balance 478 / 478 -2425 / -2425 -1500 / -1500 Intake: IV Fluids 828 / 828 Sodium Bicarbonate 150 828 / 828 MEQ In Dextrose 5% 1,000 ML @ 100 mls/hr IVC . [id number] [facility] Rx#: [id number] Oral 0 / 0 Intake, Rinseback and 600 / 600 Flushes Output: Urine 25 / 25 Stool 100 / 100 Gastric Tube Lavage 850 / 850 Amount Right Nare 850 / 850 Total Dialysis (HD) 1600 / 1600 Output Catheter 800 / 800 400 / 400 Gastric Drainage 950 / 950 150 / 150 Other: Weight 109.3 kg 111.9 kg Blood Glucose* 157 132 Hemodialysis Net Fluid 0 1000 Removed (mL) Patient Weight 03/23/17 23:59 Weight 111.9 kg - General Appearance Exam: Patient is alert and oriented. No acute distress. Vital signs stable. Lungs benchpress sounds otherwise clear. Heart regular rate and rhythm. Abdomen demonstrates normal bowel sounds. Abdomen is soft less distended. There is less abdominal discomfort. There is 1+ lower extremity swelling. Smith catheter is in place. Temporary dialysis catheters in the right internal jugular vein. NG tube is in place. - Lab 03/23/17 05:35 03/23/17 05:35 Most recent lab results Calcium 8.5 mg/dL (8.6-10.8) L 03/23/17 05:35 Phosphorus 6.3 mg/dL (2.3-4.7) H 03/22/17 04:15 Magnesium 1.6 mg/dL (1.6-2.6) 03/23/17 05:35 Consult Discharge Plan - Plan Referrals: ALTA DELGADILLO [Other] - 04/01/17 4:15 pm NONE,PCP [Primary Care Provider] -
[2017-03-23] MEDS: Aspirin 81 MG TAB.CHEW PO SCH (08:03)
[2017-03-23] MEDS: Sennosides/Docusate Sodium TABLET PO SCH ×2 (08:04→20:31)
[2017-03-23] MEDS: Sucralfate 1 GM TABLET PO SCH ×4 (08:04→20:31)
[2017-03-23] MEDS: amLODIPine 5 MG TABLET PO SCH ×2 (08:04→20:31)
[2017-03-23] MEDS: Insulin LISPRO 300 UNITS/3 ML VIAL SQ SCH ×3 (08:05→19:01)
--- NOTE | 2017-03-23 10:10 | General Surgery Progress Note ---
<Maren Mcgee - Last Filed: 03/23/17 10:19> Date of Encounter: 03/23/17 Time of Encounter: 09:30 - Assessment and Plan (1) Ileus Current Visit: Yes Status: Acute Likely 2/2 acute medical diagnoses -Did not appreciate any bowel sounds although pt reports flatus and BM yesterday. -Continue supportive care and discomfort management -NG to [place]. If he experiences nausea, may return to [facility] -Continue NPO -Continue PPI per IV therapy (2) SHARON (acute kidney injury) Current Visit: Yes Status: Acute Management per medicine. will continue to follow (3) Rhabdomyolysis Current Visit: Yes Status: Acute Management per medicine. Will continue to follow. Qualifiers: Rhabdomyolysis type: non-traumatic Qualified Code(s): M62.82 - Rhabdomyolysis (4) DVT prophylaxis Current Visit: Yes Status: Acute SCDs while in bed, Heparin 5000 units SQ every height hours. Subjective Patient reports: no new complaints, still having pain, pain is less, flatus, bowel movement Narrative: Pt seen and examined in dialysis. States loose BM yesterday and passing gas. Denies nausea. States abd discomfort has improved, but remains. Objective Vital Signs - Last 8 Hours Temp Pulse Resp BP Pulse Ox 03/23/17 07:33 98.2 F 18 149/87 96 03/23/17 04:03 98.0 F 79 18 131/82 99 03/23/17 04:00 73 Intake and Output 03/22/17 03/23/17 03/23/17 23:59 07:59 15:59 Output Total 2425 / 2425 1500 / 1500 Balance -2425 / -2425 -1500 / -1500 Output: Urine 25 / 25 Stool 100 / 100 Gastric Tube Lavage 850 / 850 Amount Right Nare 850 / 850 Total Dialysis (HD) 1600 / 1600 Output Catheter 800 / 800 400 / 400 Gastric Drainage 150 / 150 Other: Weight 111.9 kg Blood Glucose* 132 Hemodialysis Net Fluid 1000 Removed (mL) Patient Weight 03/23/17 23:59 Weight 111.9 kg - General physical appearance no distress, moderate pain (with palpation of abd) - Eyes normal ocular movement - ENT atraumatic, normocephalic, Other (NG tube noted and secured. ) - Neck Neck exam: trachea midline, other (Right dialysis cath noted.) - Respiratory other (Decreased anteriorly bibasilar) - Cardiovascular Cardiovascular exam: Present: RRR, no murmurs/rubs/gallops - Abdomen Abdomen: Present: soft, tender (Expected postoperative tenderness. ). Absent: bowel sounds present - Incision Incision: Present: clean and dry, intact - Integumentary no rash - Neurologic CN 2-12 grossly intact - Musculoskeletal normal posture - Psychiatric oriented to time, oriented to person, oriented to place, memory intact - Labs 03/23/17 05:35 03/23/17 05:35 Diabetes panel 03/23/17 Range/Units 05:35 Sodium 138 (136-145) mEq/L Potassium 3.8 (3.5-4.5) mEq/L Chloride 96 L (98-109) mEq/L Carbon Dioxide 31 H (19-29) mEq/L BUN 54 H (8-26) mg/dL Creatinine 6.49 H (0.72-1.25) mg/dL Glucose 112 H (70-99) mg/dL Calcium 8.5 L (8.6-10.8) mg/dL AST 135 H (5-34) Units/L ALT 142 H (0-55) Units/L Alkaline Phosphatase 55 (38-126) Units/L Albumin 2.1 L (3.5-5.0) g/dL Calcium panel 03/23/17 Range/Units 05:35 Calcium 8.5 L (8.6-10.8) mg/dL Albumin 2.1 L (3.5-5.0) g/dL Pituitary panel 03/23/17 Range/Units 05:35 Sodium 138 (136-145) mEq/L Potassium 3.8 (3.5-4.5) mEq/L Chloride 96 L (98-109) mEq/L Carbon Dioxide 31 H (19-29) mEq/L BUN 54 H (8-26) mg/dL Creatinine 6.49 H (0.72-1.25) mg/dL Glucose 112 H (70-99) mg/dL Calcium 8.5 L (8.6-10.8) mg/dL Adrenal panel 03/23/17 Range/Units 05:35 Sodium 138 (136-145) mEq/L Potassium 3.8 (3.5-4.5) mEq/L Chloride 96 L (98-109) mEq/L Carbon Dioxide 31 H (19-29) mEq/L BUN 54 H (8-26) mg/dL Creatinine 6.49 H (0.72-1.25) mg/dL Glucose 112 H (70-99) mg/dL Calcium 8.5 L (8.6-10.8) mg/dL Total Bilirubin 0.5 (0.2-1.2) mg/dL AST 135 H (5-34) Units/L ALT 142 H (0-55) Units/L Alkaline Phosphatase 55 (38-126) Units/L Albumin 2.1 L (3.5-5.0) g/dL Consult Discharge Plan - Plan Referrals: ALTA DELGADILLO [Other] - 04/01/17 4:15 pm NONE,PCP [Primary Care Provider] - <Evans Curtis - Last Filed: 03/24/17 07:33> Date of Encounter: 03/23/17 - Assessment and Plan (1) Ileus Current Visit: Yes Status: Acute Objective Vital Signs - Last 8 Hours Temp Pulse Resp BP Pulse Ox 03/24/17 06:55 97.9 F 80 14 141/86 97 03/24/17 04:45 98.3 F 91 15 138/88 96 Intake and Output 03/23/17 03/23/17 03/24/17 15:59 23:59 07:59 Intake Total 600 / 600 Output Total 2512 / 2512 475 / 475 425 / 425 Balance -191 / -1912 -475 / -475 -425 / -425 Intake: Oral 0 / 0 Intake, Rinseback and 600 / 600 Flushes Output: Urine 0 / 0 Gastric Tube Lavage 200 / 200 125 / 125 0 / 0 Amount Right Nare 200 / 200 125 / 125 0 / 0 Total Dialysis (HD) 2312 / 2312 Output Catheter 350 / 350 250 / 250 Gastric Drainage 175 / 175 Other: Weight 111 kg 106.866 kg Blood Glucose* 94 101 97 Hemodialysis Net Fluid 1712 Removed (mL) Patient Weight 03/24/17 23:59 Weight 106.866 kg - Labs 03/24/17 04:55 03/24/17 04:55 Diabetes panel 03/24/17 Range/Units 04:55 Sodium 139 (136-145) mEq/L Potassium 4.0 (3.5-4.5) mEq/L Chloride 97 L (98-109) mEq/L Carbon Dioxide 29 (19-29) mEq/L BUN 44 H D (8-26) mg/dL Creatinine 5.28 H (0.72-1.25) mg/dL Glucose 100 H (70-99) mg/dL Calcium 9.0 (8.6-10.8) mg/dL AST 111 H (5-34) Units/L ALT 140 H (0-55) Units/L Alkaline Phosphatase 58 (38-126) Units/L Albumin 2.3 L (3.5-5.0) g/dL Calcium panel 03/24/17 Range/Units 04:55 Calcium 9.0 (8.6-10.8) mg/dL Albumin 2.3 L (3.5-5.0) g/dL Pituitary panel 03/24/17 Range/Units 04:55 Sodium 139 (136-145) mEq/L Potassium 4.0 (3.5-4.5) mEq/L Chloride 97 L (98-109) mEq/L Carbon Dioxide 29 (19-29) mEq/L BUN 44 H D (8-26) mg/dL Creatinine 5.28 H (0.72-1.25) mg/dL Glucose 100 H (70-99) mg/dL Calcium 9.0 (8.6-10.8) mg/dL Adrenal panel 03/24/17 Range/Units 04:55 Sodium 139 (136-145) mEq/L Potassium 4.0 (3.5-4.5) mEq/L Chloride 97 L (98-109) mEq/L Carbon Dioxide 29 (19-29) mEq/L BUN 44 H D (8-26) mg/dL Creatinine 5.28 H (0.72-1.25) mg/dL Glucose 100 H (70-99) mg/dL Calcium 9.0 (8.6-10.8) mg/dL Total Bilirubin 0.5 (0.2-1.2) mg/dL AST 111 H (5-34) Units/L ALT 140 H (0-55) Units/L Alkaline Phosphatase 58 (38-126) Units/L Albumin 2.3 L (3.5-5.0) g/dL - Attending Attestation I have personally performed a face to face evaluation on this patient. I have reviewed and agree with the care plan. History and Exam by me shows: The patient was seen and evaluated on morning rounds and clinical care plan as discussed with the clinical nurse practitioner. The patient continues to have high nasogastric tube output however he did have a bowel movement and is now passing flatus. This appears to be resolving ileus. We will place his nasogastric tube to a [place] bag area and we anticipate removing the is a gastric tube in the next 24-48 hours Evans Curtis MD FACS
--- NOTE | 2017-03-23 12:28 | Internal Med Progress Note ---
Date of Encounter: 03/23/17 Time of Encounter: 12:26 - Assessment and plan (1) Ileus Current Visit: Yes Status: Acute Assessment and plan: CT abdomen and pelvis shows dilated small bowel loops with air fluid levels with no transition point, suggestive of ileus. Patient significantly improved symptomatically after nasogastric tube placement. Continue NG tube, NPO, IV fluids Surgery consulted , follow-through study considered Continue Protonix IV (2) SHARON (acute kidney injury) Current Visit: Yes Status: Acute Assessment and plan: Noted to have acute renal failure. History of recent cholecystectomy no diagnosis of chronic kidney disease. However, his renal dysfunction began during the recent admission at [facility] for urinary retention and right-sided hydroureter/hydronephrosis due to ureterolithiasis. He had placement of right ureteral stent and subsequent removal. improved metabolic acidosis. Nephrology consult and f/up appreciated- plan for placement of temporary hemodialysis catheter with subsequent hemodialysis. IV fluids /normal saline. Avoid new nephrotoxic agents. Followed by Dr. Garcia (3) Urinary retention Current Visit: Yes Status: Acute Assessment and plan: Continue [place] catheter and monitor urine output. CT abdomen/pelvis showed right renal nonobstructive stones. Renal ultrasound shows nonobstructing stone in the lower pole of right kidney, no hydronephrosis or hydroureter. Continue to monitor closely. (4) Rhabdomyolysis Current Visit: Yes Status: Acute Assessment and plan: Significant bilateral lower extremity weakness leading to ground level fall and remaining on the ground for about 8 hours. Also noted to be on statin ( according to prior records, the patient denies it) . Continue IV hydration, suspect acute kidney injury related to rhabdomyolysis. Qualifiers: Rhabdomyolysis type: non-traumatic Qualified Code(s): M62.82 - Rhabdomyolysis (5) Diabetes mellitus Current Visit: Yes Status: Chronic Assessment and plan: Continue Accu-Chek blood glucose monitoring with sliding scale insulin. Currently NPO. Qualifiers: Diabetes mellitus type: type 2 Diabetes mellitus complication status: with unspecified complications Diabetes mellitus terminal worker insulin use: without custodial use Qualified Code(s): E11.8 - Type 2 diabetes mellitus with unspecified complications (6) Hypertension Current Visit: Yes Status: Chronic Qualifiers: Hypertension type: essential hypertension Qualified Code(s): I10 - Essential (primary) hypertension - Subjective Interval history: says he passed a little amount of gas today, although abdomen feels more distended, denies CP or SOB, no fever, no headache - Constitutional Vitals: Temp Pulse Resp BP Pulse Ox 97.1 F L 79 18 128/81 96 03/23/17 09:45 03/23/17 04:03 03/23/17 09:45 03/23/17 11:45 03/23/17 07:33 General appearance: Present: cooperative, A&O X 3, obese, answers questions appropriately Exam: NG tube in place draining dark fluid - Head Head exam: Present: atraumatic, normocephalic Additional comments: Right IJ temp dialysis catheter - Eye Eye exam: Present: PERRL, conjuntiva pink, sclera anicteric Pupils: Present: PERRL - Neck Neck exam general surgery: Present: supple, trachea midline. Absent: lymphadenopathy - Respiratory Respiratory exam: Present: CTAB. Absent: accessory muscle use, rales, rhonchi, wheezes - Cardiovascular Cardiovascular exam: Present: RRR, +S1, +S2. Absent: diastolic murmur, gallop, rubs, systolic murmur - GI/Abdominal GI/Abdominal exam: Present: normal bowel sounds, soft, no peritoneal signs. Absent: distended, tenderness - Extremities Exam Extremities exam: Present: warm, radial pulses palpable and symmetrical. Absent : calf tenderness, cyanotic, pedal edema - Neurological Exam Neurological exam: Present: CN II-XII intact, oriented X3, no focal deficits. Absent: pronater drift, facial droop, speech deficit - Skin Skin exam: Present: dry, intact Additional comments: [place] in place Internal Medicine: Result - Labs CBC & Chem 7: 03/23/17 05:35 03/23/17 05:35 Labs: Short CBC 03/23/17 Range/Units 05:35 WBC 7.6 (4.3-11.1) K/mcL Hgb 9.8 L (12.9-16.9) g/dL Hct 29.3 L (37.5-50.1) % Plt Count 410 H (140-400) K/mcL Neutrophils # 5.7 (1.6-8.9) K/mcL BMP 03/23/17 05:35 Sodium 138 Potassium 3.8 Chloride 96 L Carbon Dioxide 31 H BUN 54 H Creatinine 6.49 H Glucose 112 H Calcium 8.5 L Liver Function 03/23/17 Range/Units 05:35 Total Bilirubin 0.5 (0.2-1.2) mg/dL AST 135 H (5-34) Units/L ALT 142 H (0-55) Units/L Alkaline Phosphatase 55 (38-126) Units/L Albumin 2.1 L (3.5-5.0) g/dL - ABG Interpretation ABG results: PT/INR, D-dimer PT 16.1 Seconds (9.4-12.1) H 03/18/17 00:01 - Impressions Impressions Guidance Needle Placement Ultrasound 03/22/17 00:00 IMPRESSION: Successful bedside placement of an ultrasound guided temporary hemodialysis catheter. D/ / Earl Grover MD / Earl Grover MD Interpreting Provider: Earl Grover MD Insertion Non-Tunneled Catheter 03/22/17 00:00 IMPRESSION: Successful bedside placement of an ultrasound guided temporary hemodialysis catheter. D/ / Earl Grover MD / Earl Grover MD Interpreting Provider: Earl Grover MD Chest X-Ray 03/22/17 11:52 IMPRESSION: 1. Interval placement of a right central catheter with catheter tip overlying the superior atrial caval junction. No acute pulmonary abnormality. Specifically, no pneumothorax. D/ / Mario Pena MD / Mario Pena MD Interpreting Provider: Mario Pena MD Consult Discharge Plan - Plan Referrals: ALTA DELGADILLO [Other] - 04/01/17 4:15 pm NONE,PCP [Primary Care Provider] -
[2017-03-23] MEDS ORDERED: *HR* Heparin 10,000 UNIT/10 ML VIAL IV PRN (13:05)
[2017-03-23] MEDS ORDERED: 0.9 % Sodium Chloride 2,000 ML ONE (13:24)
[2017-03-23] MEDS: 0.9 % Sodium Chloride 1,000 ML IVC SCH (16:40)
[2017-03-24] MEDS: *HR* Heparin 5,000 UNIT/ML VIAL SQ SCH ×3 (04:59→21:14)
[2017-03-24] MEDS: Insulin LISPRO 300 UNITS/3 ML VIAL SQ SCH ×5 (05:03→21:13)
[2017-03-24 05:14] LABS: Basophils % 0.4 %; Eosinophils # 0.1 K/mcL (0.0-0.6); Eosinophils % 1.2 %; Hemoglobin 9.9 g/dL (12.9-16.9); Immature Granulocytes % 1.2 % (0-4); Immature Platelets 1.1 % (1.1-6.1); Lymphocytes % 11.6 %; Mean Corpuscular HGB Conc 31.9 g/dL (31.6-35.5); Mean Corpuscular Hemoglobin 26.4 pg (28.0-33.3); Mean Corpuscular Volume 82.7 fL (83.0-100.0); Mean Platelet Volume 8.7 fL (9.4-12.4); Monocytes # 0.8 K/mcL (0.0-1.3); Monocytes % 10.2 %; Neutrophils # 6.2 K/mcL (1.6-8.9); Platelet Count 490 K/mcL (140-400); Red Blood Count 3.75 M/mcL (4.19-5.50); Red Cell Distribution Width 13.7 % (11.5-14.5); Segmented Neutrophils % 75.4 %
[2017-03-24 05:27] LABS: Albumin 2.3 g/dL (3.5-5.0); Albumin/Globulin Ratio 0.6 (1.1-2.2); Bilirubin,Total 0.5 mg/dL (0.2-1.2); Globulin 3.6 g/dL (2.4-3.5); Total Protein 5.9 g/dL (6.0-8.3)
[2017-03-24] MEDS: Aspirin 81 MG TAB.CHEW PO SCH (07:56)
[2017-03-24] MEDS: 0.9 % Sodium Chloride 1,000 ML IVC SCH ×2 (07:56→13:03)
[2017-03-24] MEDS: amLODIPine 5 MG TABLET PO SCH ×2 (07:57→21:13)
[2017-03-24] MEDS: Sennosides/Docusate Sodium TABLET PO SCH ×2 (07:57→21:13)
[2017-03-24] MEDS: Sucralfate 1 GM TABLET PO SCH ×4 (07:57→21:12)
[2017-03-24] MEDS: Pantoprazole 40 MG VIAL IVP SCH (08:35)
--- NOTE | 2017-03-24 08:54 | Nephrology Progress Note ---
Date of Encounter: 03/24/17 Time of Encounter: 08:45 - Assessment and Plan (1) SHARON (acute kidney injury) Current Visit: Yes Status: Acute SHARON in setting of recent renal insufficiency S/P renal calculi/renal stent requiring no HD. Possible current post renal obstruction following stent removal and multiple renal stones in right kidney on CT. Non obstructing calculus right kidney. BPH contributing. Rabdo-Statin given at [facility] may be contributing to extended immobility of patient from fall. CK improving 2087. Creat 5.28, documented urine output 750cc. No HD today. Avoid nephrotoxins, maintain [place] catheter. Will continue to follow. Subjective Principal diagnosis: Rhabdo Interval history: Sitting up in bed. at bedside. States feeling better. NG to gravity drainage. States passing flatus. at bedside. Objective - Vital Signs Vital signs: Vital Signs Temp Pulse Resp BP Pulse Ox 03/24/17 06:55 97.9 F 80 14 141/86 97 03/24/17 04:45 98.3 F 91 15 138/88 96 03/23/17 20:32 84 03/23/17 19:26 97.8 F 84 18 140/86 98 03/23/17 17:04 91 18 138/84 96 03/23/17 12:30 97.1 F L 18 129/64 03/23/17 12:25 132/70 03/23/17 12:15 131/94 03/23/17 12:00 111/81 03/23/17 11:45 128/81 03/23/17 11:30 142/77 03/23/17 11:15 137/82 03/23/17 11:00 120/80 03/23/17 10:45 141/76 03/23/17 10:30 137/74 03/23/17 10:15 130/70 03/23/17 10:00 144/79 03/23/17 09:45 97.1 F L 18 141/73 Intake and Output 03/23/17 03/24/17 03/24/17 23:59 07:59 15:59 Output Total 475 / 475 425 / 425 Balance -475 / -475 -425 / -425 Output: Gastric Tube Lavage 125 / 125 0 / 0 Amount Right Nare 125 / 125 0 / 0 Catheter 350 / 350 250 / 250 Gastric Drainage 175 / 175 Other: Weight 106.866 kg Blood Glucose* 101 97 Patient Weight 03/24/17 23:59 Weight 106.866 kg - General Appearance General appearance: Present: well-developed, well-nourished, appears started age , obese EENT: Present: mucous membranes moist Neck: Present: no JVD Respiratory: Present: clear Cardiology: Present: edema Additional Comments: mild Gastrointestinal: Present: normoactive bowel sounds, tenderness Integumentary: Present: warm and dry Neurologic: Present: alert and oriented x3 Psychiatric: Present: mood/affect appropriate, cooperative - Lab 03/24/17 04:55 03/24/17 04:55 Most recent lab results Calcium 9.0 mg/dL (8.6-10.8) 03/24/17 04:55 Phosphorus 6.3 mg/dL (2.3-4.7) H 03/22/17 04:15 Magnesium 1.6 mg/dL (1.6-2.6) 03/23/17 05:35 Consult Discharge Plan - Plan Referrals: ALTA DELGADILLO [Other] - 04/01/17 4:15 pm NONE,PCP [Primary Care Provider] -
--- NOTE | 2017-03-24 10:23 | Internal Med Progress Note ---
Date of Encounter: 03/24/17 Time of Encounter: 10:21 - Assessment and plan (1) Ileus Current Visit: Yes Status: Acute Assessment and plan: CT abdomen and pelvis shows dilated small bowel loops with air fluid levels with no transition point, suggestive of ileus. Patient significantly improved symptomatically after nasogastric tube placement. Continue NG tube, NPO, IV fluids Surgery consulted recommendations appreciated, follow-through study considered Continue Protonix IV (2) SHARON (acute kidney injury) Current Visit: Yes Status: Acute Assessment and plan: Noted to have acute renal failure. History of recent cholecystectomy no diagnosis of chronic kidney disease. However, his renal dysfunction began during the recent admission at [facility] for urinary retention and right-sided hydroureter/hydronephrosis due to ureterolithiasis. He had placement of right ureteral stent and subsequent removal. improved metabolic acidosis. Nephrology consult and f/up appreciated- plan for placement of temporary hemodialysis catheter with subsequent hemodialysis. IV fluids /normal saline. Avoid new nephrotoxic agents. Followed by Dr. Garcia (3) Urinary retention Current Visit: Yes Status: Acute Assessment and plan: Continue [place] catheter and monitor urine output. CT abdomen/pelvis showed right renal nonobstructive stones. Renal ultrasound shows nonobstructing stone in the lower pole of right kidney, no hydronephrosis or hydroureter. Continue to monitor closely. (4) Rhabdomyolysis Current Visit: Yes Status: Acute Assessment and plan: Significant bilateral lower extremity weakness leading to ground level fall and remaining on the ground for about 8 hours. Also noted to be on statin ( according to prior records, the patient denies it) . CK was 36,484 Continue IV hydration, suspect acute kidney injury related to rhabdomyolysis. Qualifiers: Rhabdomyolysis type: non-traumatic Qualified Code(s): M62.82 - Rhabdomyolysis (5) Diabetes mellitus Current Visit: Yes Status: Chronic Assessment and plan: Continue Accu-Chek blood glucose monitoring with sliding scale insulin. Currently NPO. Qualifiers: Diabetes mellitus type: type 2 Diabetes mellitus complication status: with unspecified complications Diabetes mellitus joint terminal attack controller insulin use: without senior care use Qualified Code(s): E11.8 - Type 2 diabetes mellitus with unspecified complications (6) Hypertension Current Visit: Yes Status: Chronic Qualifiers: Hypertension type: essential hypertension Qualified Code(s): I10 - Essential (primary) hypertension - Subjective Interval history: says he passed a little more gas today, abdomen feels less distended, denies CP or SOB, no fever, no headache - Constitutional Vitals: Temp Pulse Resp BP Pulse Ox 97.9 F 80 14 141/86 97 03/24/17 06:55 03/24/17 06:55 03/24/17 06:55 03/24/17 06:55 03/24/17 06:55 General appearance: Present: cooperative, A&O X 3, obese, answers questions appropriately Exam: NG tube in place - Head Head exam: Present: atraumatic, normocephalic Additional comments: Right IJ temp dialysis catheter - Eye Eye exam: Present: PERRL, conjuntiva pink, sclera anicteric Pupils: Present: PERRL - Neck Neck exam general surgery: Present: supple, trachea midline. Absent: lymphadenopathy - Respiratory Respiratory exam: Present: CTAB. Absent: accessory muscle use, rales, rhonchi, wheezes - Cardiovascular Cardiovascular exam: Present: RRR, +S1, +S2. Absent: diastolic murmur, gallop, rubs, systolic murmur - GI/Abdominal GI/Abdominal exam: Present: normal bowel sounds, soft, no peritoneal signs. Absent: distended, tenderness - Extremities Exam Extremities exam: Present: warm, radial pulses palpable and symmetrical. Absent : calf tenderness, cyanotic, pedal edema - Neurological Exam Neurological exam: Present: CN II-XII intact, oriented X3, no focal deficits. Absent: pronater drift, facial droop, speech deficit - Skin Skin exam: Present: dry, intact Additional comments: surgical wounds in abdomen without signs of infection toled[place] in place Internal Medicine: Result - Labs CBC & Chem 7: 03/24/17 04:55 03/24/17 04:55 Labs: Short CBC 03/24/17 Range/Units 04:55 WBC 8.3 (4.3-11.1) K/mcL Hgb 9.9 L (12.9-16.9) g/dL Hct 31.0 L (37.5-50.1) % Plt Count 490 H (140-400) K/mcL Neutrophils # 6.2 (1.6-8.9) K/mcL BMP 03/24/17 04:55 Sodium 139 Potassium 4.0 Chloride 97 L Carbon Dioxide 29 BUN 44 H D Creatinine 5.28 H Glucose 100 H Calcium 9.0 Liver Function 03/24/17 Range/Units 04:55 Total Bilirubin 0.5 (0.2-1.2) mg/dL AST 111 H (5-34) Units/L ALT 140 H (0-55) Units/L Alkaline Phosphatase 58 (38-126) Units/L Albumin 2.3 L (3.5-5.0) g/dL - ABG Interpretation ABG results: PT/INR, D-dimer PT 16.1 Seconds (9.4-12.1) H 03/18/17 00:01 Consult Discharge Plan - Plan Referrals: ALTA DELGADILLO [Other] - 04/01/17 4:15 pm NONE,PCP [Primary Care Provider] -
--- NOTE | 2017-03-24 12:06 | General Surgery Progress Note ---
<Janie White Hillary - Last Filed: 03/24/17 12:13> Date of Encounter: 03/24/17 Time of Encounter: 11:00 - Assessment and Plan (1) Ileus Current Visit: Yes Status: Acute Trial clear liquids today Continue supportive care and discomfort management NG to [place]. If he experiences nausea, may return to LIWS (patient declines removal of NG until tolerated liquids) Reglan for the next 48 hours Continue PPI per IV therapy Surgery will continue to follow and assess progress (2) S/P laparoscopic cholecystectomy Current Visit: Yes Status: Acute Remove patrice today (3) SHARON (acute kidney injury) Current Visit: Yes Status: Acute Improved 6.49>5.28 Nephrology following Dialysis complete 03/23/17 Avoid nephrotoxic medications IV fluids (4) Rhabdomyolysis Current Visit: Yes Status: Acute Management per medicine service Qualifiers: Rhabdomyolysis type: non-traumatic Qualified Code(s): M62.82 - Rhabdomyolysis (5) DVT prophylaxis Current Visit: Yes Status: Acute Heparin 5,000 units SQ TID for DVT prophylaxis EPCDs to bilateral lower extremities for DVT prophylaxis Subjective Patient reports: no new complaints, feels better, still having pain, pain is less, flatus, no bowel movement, afebrile, other (Patient did experience nausea with NG to gravity drain and NG was placed back to LIWS, patient placed by to gravity drain this morning and is tolerating without nausea/vomiting) Objective Vital Signs - Last 8 Hours Temp Pulse Resp BP Pulse Ox 03/24/17 11:00 98.1 F 78 16 141/87 98 03/24/17 06:55 97.9 F 80 14 141/86 97 03/24/17 04:45 98.3 F 91 15 138/88 96 Intake and Output 03/23/17 03/24/17 03/24/17 23:59 07:59 15:59 Output Total 475 / 475 425 / 425 Balance -475 / -475 -425 / -425 Output: Gastric Tube Lavage 125 / 125 0 / 0 Amount Right Nare 125 / 125 0 / 0 Catheter 350 / 350 250 / 250 Gastric Drainage 175 / 175 Other: Weight 106.866 kg Blood Glucose* 101 97 Patient Weight 03/24/17 23:59 Weight 106.866 kg - General physical appearance well developed, well nourished, no distress - Eyes normal ocular movement - ENT dry mucosa, atraumatic, normocephalic - Neck Neck exam: trachea midline - Respiratory normal respiratory effort, clear to auscultation, other (diminished bibasilar bases) - Cardiovascular Cardiovascular exam: Present: RRR - Abdomen Abdomen: Present: bowel sounds present, soft, tender (expected tenderness around patrice), wound (NG to gravity drain (toledo bag) with no drainage noted; 550ml of bilious drainage in the past 24 hours) - Genitourinary other (toledo catheter to SD with clear, yellow urine noted) - Neurologic CN 2-12 grossly intact - Psychiatric oriented to time, oriented to person, oriented to place, speech is normal, memory intact - Labs 03/24/17 04:55 03/24/17 04:55 Diabetes panel 03/24/17 Range/Units 04:55 Sodium 139 (136-145) mEq/L Potassium 4.0 (3.5-4.5) mEq/L Chloride 97 L (98-109) mEq/L Carbon Dioxide 29 (19-29) mEq/L BUN 44 H D (8-26) mg/dL Creatinine 5.28 H (0.72-1.25) mg/dL Glucose 100 H (70-99) mg/dL Calcium 9.0 (8.6-10.8) mg/dL AST 111 H (5-34) Units/L ALT 140 H (0-55) Units/L Alkaline Phosphatase 58 (38-126) Units/L Albumin 2.3 L (3.5-5.0) g/dL Calcium panel 03/24/17 Range/Units 04:55 Calcium 9.0 (8.6-10.8) mg/dL Albumin 2.3 L (3.5-5.0) g/dL Pituitary panel 03/24/17 Range/Units 04:55 Sodium 139 (136-145) mEq/L Potassium 4.0 (3.5-4.5) mEq/L Chloride 97 L (98-109) mEq/L Carbon Dioxide 29 (19-29) mEq/L BUN 44 H D (8-26) mg/dL Creatinine 5.28 H (0.72-1.25) mg/dL Glucose 100 H (70-99) mg/dL Calcium 9.0 (8.6-10.8) mg/dL Adrenal panel 03/24/17 Range/Units 04:55 Sodium 139 (136-145) mEq/L Potassium 4.0 (3.5-4.5) mEq/L Chloride 97 L (98-109) mEq/L Carbon Dioxide 29 (19-29) mEq/L BUN 44 H D (8-26) mg/dL Creatinine 5.28 H (0.72-1.25) mg/dL Glucose 100 H (70-99) mg/dL Calcium 9.0 (8.6-10.8) mg/dL Total Bilirubin 0.5 (0.2-1.2) mg/dL AST 111 H (5-34) Units/L ALT 140 H (0-55) Units/L Alkaline Phosphatase 58 (38-126) Units/L Albumin 2.3 L (3.5-5.0) g/dL Consult Discharge Plan - Plan Referrals: ALTA DELGADILLO [Other] - 04/01/17 4:15 pm NONE,PCP [Primary Care Provider] - - Attending Attestation For this encounter, I have reviewed the QA INTERN or PA documentation, treatment plan, and medical decision making; and I have had face to face time with this patient. <Evans Curtis - Last Filed: 03/24/17 18:13> Date of Encounter: 03/24/17 - Assessment and Plan (1) Ileus Current Visit: Yes Status: Acute Objective Vital Signs - Last 8 Hours Temp Pulse Resp BP Pulse Ox 03/24/17 16:38 98.1 F 80 14 135/90 99 03/24/17 11:00 98.1 F 78 16 141/87 98 Intake and Output 03/24/17 03/24/17 03/24/17 07:59 15:59 23:59 Intake Total 1600 / 1600 Output Total 425 / 425 Balance -425 / -425 1600 / 1600 Intake: IV Fluids 1000 / 1000 0.9 % Sodium Chloride 1, 1000 / 1000 000 ML @ 50 mls/hr IVC . Q20H D[facility]EL Rx#:[id number] Oral 600 / 600 Output: Gastric Tube Lavage 0 / 0 Amount Right Nare 0 / 0 Catheter 250 / 250 Gastric Drainage 175 / 175 Other: Meal CLEARS Percent of Meal Consumed 75% Weight 106.866 kg Blood Glucose* 97 136 185 Patient Weight 03/24/17 23:59 Weight 106.866 kg - Labs 03/24/17 04:55 03/24/17 04:55 Diabetes panel 03/24/17 Range/Units 04:55 Sodium 139 (136-145) mEq/L Potassium 4.0 (3.5-4.5) mEq/L Chloride 97 L (98-109) mEq/L Carbon Dioxide 29 (19-29) mEq/L BUN 44 H D (8-26) mg/dL Creatinine 5.28 H (0.72-1.25) mg/dL Glucose 100 H (70-99) mg/dL Calcium 9.0 (8.6-10.8) mg/dL AST 111 H (5-34) Units/L ALT 140 H (0-55) Units/L Alkaline Phosphatase 58 (38-126) Units/L Albumin 2.3 L (3.5-5.0) g/dL Calcium panel 03/24/17 Range/Units 04:55 Calcium 9.0 (8.6-10.8) mg/dL Albumin 2.3 L (3.5-5.0) g/dL Pituitary panel 03/24/17 Range/Units 04:55 Sodium 139 (136-145) mEq/L Potassium 4.0 (3.5-4.5) mEq/L Chloride 97 L (98-109) mEq/L Carbon Dioxide 29 (19-29) mEq/L BUN 44 H D (8-26) mg/dL Creatinine 5.28 H (0.72-1.25) mg/dL Glucose 100 H (70-99) mg/dL Calcium 9.0 (8.6-10.8) mg/dL Adrenal panel 03/24/17 Range/Units 04:55 Sodium 139 (136-145) mEq/L Potassium 4.0 (3.5-4.5) mEq/L Chloride 97 L (98-109) mEq/L Carbon Dioxide 29 (19-29) mEq/L BUN 44 H D (8-26) mg/dL Creatinine 5.28 H (0.72-1.25) mg/dL Glucose 100 H (70-99) mg/dL Calcium 9.0 (8.6-10.8) mg/dL Total Bilirubin 0.5 (0.2-1.2) mg/dL AST 111 H (5-34) Units/L ALT 140 H (0-55) Units/L Alkaline Phosphatase 58 (38-126) Units/L Albumin 2.3 L (3.5-5.0) g/dL - Attending Attestation The patient is seen and evaluated on morning rounds. I discussed the treatment plan with the clinical nurse practitioner today. He is progressing with bowel activity he should be able to get the nasogastric tube out very soon Evans Curtis MD FACS
[2017-03-24] MEDS: Metoclopramide 10 MG/2 ML VIAL IVP SCH ×2 (13:10→18:57)
[2017-03-25] MEDS: Metoclopramide 10 MG/2 ML VIAL IVP SCH ×4 (00:42→18:40)
[2017-03-25] MEDS: *HR* Heparin 5,000 UNIT/ML VIAL SQ SCH ×3 (04:40→21:11)
[2017-03-25 05:02] LABS: Hematocrit 29.6 % (37.5-50.1); Hemoglobin 9.6 g/dL (12.9-16.9); Immature Platelets 1.6 % (1.1-6.1); Mean Corpuscular HGB Conc 32.4 g/dL (31.6-35.5); Mean Corpuscular Hemoglobin 26.7 pg (28.0-33.3); Mean Corpuscular Volume 82.2 fL (83.0-100.0); Mean Platelet Volume 9.2 fL (9.4-12.4); Red Blood Count 3.6 M/mcL (4.19-5.50); Red Cell Distribution Width 13.9 % (11.5-14.5)
[2017-03-25 05:37] LABS: Calcium 8.9 mg/dL (8.6-10.8); Potassium 3.7 mEq/L (3.5-4.5)
--- NOTE | 2017-03-25 07:51 | Nephrology Progress Note ---
Date of Encounter: 03/25/17 Time of Encounter: 07:40 - Assessment and Plan (1) SHARON (acute kidney injury) Current Visit: Yes Status: Acute SHARON in setting of rabdo. Creat 5.58. Urine output documented 650 cc. Will do HD today, orders given. Subjective Principal diagnosis: Rhabdo Interval history: Sitting up in chair. Sates moved bowels this morning. NG out, has hiccups. Denies nausea. Objective - Vital Signs Vital signs: Vital Signs Temp Pulse Resp BP Pulse Ox 03/25/17 07:24 98.2 F 79 14 159/93 99 03/25/17 04:02 98.1 F 78 18 146/87 96 03/25/17 00:03 98.3 F 76 16 137/95 95 03/24/17 19:32 98.4 F 78 16 152/90 98 03/24/17 16:38 98.1 F 80 14 135/90 99 03/24/17 11:00 98.1 F 78 16 141/87 98 Intake and Output 03/24/17 03/24/17 03/25/17 15:59 23:59 07:59 Intake Total 1600 / 1600 120 / 120 Output Total 400 / 400 300 / 300 Balance 1600 / 1600 -280 / -280 -300 / -300 Intake: IV Fluids 1000 / 1000 0.9 % Sodium Chloride 1, 1000 / 1000 000 ML @ 50 mls/hr IVC . Q20H [facility] Rx#:[id number] Oral 600 / 600 120 / 120 Output: Catheter 400 / 400 300 / 300 Other: Meal CLEARS Percent of Meal Consumed 75% Blood Glucose* 136 166 131 - General Appearance General appearance: Present: well-developed, well-nourished, appears started age , obese EENT: Present: mucous membranes moist Neck: Present: no JVD Respiratory: Present: clear Cardiology: Present: edema, regular rate, regular rhythm Additional Comments: mild pitting LE Gastrointestinal: Present: normoactive bowel sounds, tenderness Integumentary: Present: warm and dry Neurologic: Present: alert and oriented x3 Psychiatric: Present: mood/affect appropriate, cooperative - Lab 03/25/17 04:38 03/25/17 04:38 Most recent lab results Calcium 8.9 mg/dL (8.6-10.8) 03/25/17 04:38 Phosphorus 6.3 mg/dL (2.3-4.7) H 03/22/17 04:15 Magnesium 1.6 mg/dL (1.6-2.6) 03/23/17 05:35 Consult Discharge Plan - Plan Referrals: ALTA DELGADILLO [Other] - 04/01/17 4:15 pm NONE,PCP [Primary Care Provider] -
[2017-03-25] MEDS: Insulin LISPRO 300 UNITS/3 ML VIAL SQ SCH ×4 (08:01→17:10)
[2017-03-25] MEDS ORDERED: *HR* Heparin 10,000 UNIT/10 ML VIAL IV PRN (08:10)
[2017-03-25] MEDS ORDERED: 0.9 % Sodium Chloride 250 ML IVC PRN (08:10)
[2017-03-25] MEDS ORDERED: 0.9 % Sodium Chloride 1,000 ML PRIME SCH (08:15)
--- NOTE | 2017-03-25 12:15 | General Surgery Progress Note ---
<Maren Mcgee - Last Filed: 03/25/17 12:13> Date of Encounter: 03/25/17 Time of Encounter: 12:13 - Assessment and Plan (1) Ileus Current Visit: Yes Status: Acute Likely 2/2 acute medical diagnoses S/P lap anupama at [facility] NG d/c'd on 03/24/2017. Will advance to full liquid diet. Continue supportive care and discomfort management. -Continue PPI per IV therapy -continue Reglan until 03/27/2017 -surgery will sign off at this time. Thank you for allowing us to participate in Mr. Zacarias's care. Please reconsult for any questions or concerns. -Follow-up with his surgeon after d/c (2) SHARON (acute kidney injury) Current Visit: Yes Status: Acute Management per medicine. will continue to follow Avoid nephrotoxins (3) Rhabdomyolysis Current Visit: Yes Status: Acute Management per medicine. Will continue to follow. Qualifiers: Rhabdomyolysis type: non-traumatic Qualified Code(s): M62.82 - Rhabdomyolysis (4) DVT prophylaxis Current Visit: Yes Status: Acute SCDs while in bed, Heparin 5000 units SQ every height hours. Subjective Patient reports: no new complaints, feels better, pain is less, tolerating liquids well, flatus, no bowel movement, afebrile Objective Vital Signs - Last 8 Hours Temp Pulse Resp BP Pulse Ox 03/25/17 07:24 98.2 F 79 14 159/93 99 Intake and Output 03/24/17 03/25/17 03/25/17 23:59 07:59 15:59 Intake Total 120 / 120 0 / 0 240 / 240 Output Total 400 / 400 300 / 300 Balance -280 / -280 -300 / -300 240 / 240 Intake: Oral 120 / 120 0 / 0 240 / 240 Output: Catheter 400 / 400 300 / 300 Other: Meal CLEARS Stool Size Smear Large Stool Consistency liquid Stool Color Brown Brown Green Blood Glucose* 166 131 - General physical appearance no distress, no pain - Eyes normal ocular movement - ENT normal nares, normal mucosa, atraumatic, normocephalic - Neck Neck exam: trachea midline, other (Right hemodialysis cath Noted) - Respiratory normal expansion, normal respiratory effort, clear to auscultation - Cardiovascular Cardiovascular exam: Present: RRR - Abdomen Abdomen: Present: bowel sounds present, soft, non tender - Incision Incision: Present: clean and dry, intact - Integumentary no rash - Neurologic CN 2-12 grossly intact - Musculoskeletal normal gait, normal posture - Psychiatric oriented to time, oriented to person, oriented to place, memory intact - Labs 03/25/17 04:38 03/25/17 04:38 Diabetes panel 03/25/17 Range/Units 04:38 Sodium 139 (136-145) mEq/L Potassium 3.7 (3.5-4.5) mEq/L Chloride 99 (98-109) mEq/L Carbon Dioxide 28 (19-29) mEq/L BUN 53 H (8-26) mg/dL Creatinine 5.58 H (0.72-1.25) mg/dL Glucose 135 H (70-99) mg/dL Calcium 8.9 (8.6-10.8) mg/dL Calcium panel 03/25/17 Range/Units 04:38 Calcium 8.9 (8.6-10.8) mg/dL Pituitary panel 03/25/17 Range/Units 04:38 Sodium 139 (136-145) mEq/L Potassium 3.7 (3.5-4.5) mEq/L Chloride 99 (98-109) mEq/L Carbon Dioxide 28 (19-29) mEq/L BUN 53 H (8-26) mg/dL Creatinine 5.58 H (0.72-1.25) mg/dL Glucose 135 H (70-99) mg/dL Calcium 8.9 (8.6-10.8) mg/dL Adrenal panel 03/25/17 Range/Units 04:38 Sodium 139 (136-145) mEq/L Potassium 3.7 (3.5-4.5) mEq/L Chloride 99 (98-109) mEq/L Carbon Dioxide 28 (19-29) mEq/L BUN 53 H (8-26) mg/dL Creatinine 5.58 H (0.72-1.25) mg/dL Glucose 135 H (70-99) mg/dL Calcium 8.9 (8.6-10.8) mg/dL Consult Discharge Plan - Plan Referrals: ALTA DELGADILLO [Other] - 04/01/17 4:15 pm NONE,PCP [Primary Care Provider] - <Evans Curtis - Last Filed: 03/25/17 15:25> Date of Encounter: 03/25/17 - Assessment and Plan (1) Ileus Current Visit: Yes Status: Acute Objective Intake and Output 03/24/17 03/25/17 03/25/17 23:59 07:59 15:59 Intake Total 120 / 120 0 / 0 720 / 720 Output Total 400 / 400 300 / 300 450 / 450 Balance -280 / -280 -300 / -300 270 / 270 Intake: Oral 120 / 120 0 / 0 720 / 720 Output: Catheter 400 / 400 300 / 300 450 / 450 Other: Meal Full Liquids Lunch Stool Size Smear Moderate Stool Consistency loose Stool Color Brown Brown Green Weight 106 kg Blood Glucose* 166 131 140 Patient Weight 03/25/17 23:59 Weight 106 kg - Labs 03/25/17 04:38 03/25/17 04:38 Diabetes panel 03/25/17 Range/Units 04:38 Sodium 139 (136-145) mEq/L Potassium 3.7 (3.5-4.5) mEq/L Chloride 99 (98-109) mEq/L Carbon Dioxide 28 (19-29) mEq/L BUN 53 H (8-26) mg/dL Creatinine 5.58 H (0.72-1.25) mg/dL Glucose 135 H (70-99) mg/dL Calcium 8.9 (8.6-10.8) mg/dL Calcium panel 03/25/17 Range/Units 04:38 Calcium 8.9 (8.6-10.8) mg/dL Pituitary panel 03/25/17 Range/Units 04:38 Sodium 139 (136-145) mEq/L Potassium 3.7 (3.5-4.5) mEq/L Chloride 99 (98-109) mEq/L Carbon Dioxide 28 (19-29) mEq/L BUN 53 H (8-26) mg/dL Creatinine 5.58 H (0.72-1.25) mg/dL Glucose 135 H (70-99) mg/dL Calcium 8.9 (8.6-10.8) mg/dL Adrenal panel 03/25/17 Range/Units 04:38 Sodium 139 (136-145) mEq/L Potassium 3.7 (3.5-4.5) mEq/L Chloride 99 (98-109) mEq/L Carbon Dioxide 28 (19-29) mEq/L BUN 53 H (8-26) mg/dL Creatinine 5.58 H (0.72-1.25) mg/dL Glucose 135 H (70-99) mg/dL Calcium 8.9 (8.6-10.8) mg/dL - Attending Attestation I have personally performed a face to face evaluation on this patient. I have reviewed and agree with the care plan. History and Exam by me shows: The patient was seen and evaluated on morning rounds. The clinical evaluation and data was shared with the clinical nurse practitioner. The patient has his nasogastric tube out and is having bowel movements this point. He likely had ileus secondary to electrolyte abnormality. We can advance his diet and surgery can sign off at this point Evans Curtis MD FACS
[2017-03-25] MEDS: Sucralfate 1 GM TABLET PO SCH ×4 (12:43→21:09)
[2017-03-25] MEDS: Pantoprazole 40 MG VIAL IVP SCH (12:43)
[2017-03-25] MEDS: Aspirin 81 MG TAB.CHEW PO SCH (12:43)
[2017-03-25] MEDS: amLODIPine 5 MG TABLET PO SCH ×2 (12:44→21:11)
[2017-03-25] MEDS: Sennosides/Docusate Sodium TABLET PO SCH ×2 (12:45→21:10)
--- NOTE | 2017-03-25 12:46 | Internal Med Progress Note ---
Date of Encounter: 03/25/17 Time of Encounter: 12:43 - Assessment and plan (1) Ileus Current Visit: Yes Status: Acute Assessment and plan: Improving CT abdomen and pelvis shows dilated small bowel loops with air fluid levels with no transition point, suggestive of ileus. Patient significantly improved symptomatically after nasogastric tube placement. NG tube removed on 03/24/17, advance diet as tolerate, full liquids and low residue diet for dinner, IV fluids Surgery consulted Continue Protonix (2) SHARON (acute kidney injury) Current Visit: Yes Status: Acute Assessment and plan: Noted to have acute renal failure. History of recent cholecystectomy no diagnosis of chronic kidney disease. However, his renal dysfunction began during the recent admission at [facility] for urinary retention and right-sided hydroureter/hydronephrosis due to ureterolithiasis. He had placement of right ureteral stent and subsequent removal. improved metabolic acidosis. Nephrology consult and f/up appreciated- plan for placement of temporary hemodialysis catheter with subsequent hemodialysis. IV fluids /normal saline. Avoid new nephrotoxic agents. Followed by Dr. Garcia (3) Urinary retention Current Visit: Yes Status: Acute Assessment and plan: Continue [place] catheter and monitor urine output. CT abdomen/pelvis showed right renal nonobstructive stones. Renal ultrasound shows nonobstructing stone in the lower pole of right kidney, no hydronephrosis or hydroureter. Continue to monitor closely. (4) Rhabdomyolysis Current Visit: Yes Status: Acute Assessment and plan: Significant bilateral lower extremity weakness leading to ground level fall and remaining on the ground for about 8 hours. Also noted to be on statin ( according to prior records, the patient denies it) . CK was 36,484 Continue IV hydration, suspect acute kidney injury related to rhabdomyolysis. Qualifiers: Rhabdomyolysis type: non-traumatic Qualified Code(s): M62.82 - Rhabdomyolysis (5) Diabetes mellitus Current Visit: Yes Status: Chronic Assessment and plan: Continue Accu-Chek blood glucose monitoring with sliding scale insulin. Currently NPO. Qualifiers: Diabetes mellitus type: type 2 Diabetes mellitus complication status: with unspecified complications Diabetes mellitus intermediate insulin use: without oil heaterman use Qualified Code(s): E11.8 - Type 2 diabetes mellitus with unspecified complications (6) Hypertension Current Visit: Yes Status: Chronic Qualifiers: Hypertension type: essential hypertension Qualified Code(s): I10 - Essential (primary) hypertension - Subjective Interval history: Tolerating liquid diet, abdomen feels less distended, feeling bloated, denies CP or SOB, no fever, no headache - Constitutional Vitals: Temp Pulse Resp BP Pulse Ox 98.2 F 79 14 159/93 99 03/25/17 07:24 03/25/17 07:24 03/25/17 07:24 03/25/17 07:24 03/25/17 07:24 General appearance: Present: cooperative, A&O X 3, obese, answers questions appropriately Exam: Head Head exam: Present: atraumatic, normocephalic Additional comments: Right IJ temp dialysis catheter - Eye Eye exam: Present: PERRL, conjuntiva pink, sclera anicteric Pupils: Present: PERRL - Neck Neck exam general surgery: Present: supple, trachea midline. Absent: lymphadenopathy - Respiratory Respiratory exam: Present: CTAB. Absent: accessory muscle use, rales, rhonchi, wheezes - Cardiovascular Cardiovascular exam: Present: RRR, +S1, +S2. Absent: diastolic murmur, gallop, rubs, systolic murmur - GI/Abdominal GI/Abdominal exam: Present: normal bowel sounds, soft, no peritoneal signs. Absent: distended, tenderness - Extremities Exam Extremities exam: Present: warm, radial pulses palpable and symmetrical. Absent : calf tenderness, cyanotic, pedal edema - Neurological Exam Neurological exam: Present: CN II-XII intact, oriented X3, no focal deficits. Absent: pronater drift, facial droop, speech deficit - Skin Skin exam: Present: dry, intact Additional comments: surgical wounds in abdomen without signs of infection toledo in place Internal Medicine: Result - Labs CBC & Chem 7: 03/25/17 04:38 03/25/17 04:38 Labs: Short CBC 03/25/17 Range/Units 04:38 WBC 7.1 (4.3-11.1) K/mcL Hgb 9.6 L (12.9-16.9) g/dL Hct 29.6 L (37.5-50.1) % Plt Count 413 H (140-400) K/mcL BMP 03/25/17 04:38 Sodium 139 Potassium 3.7 Chloride 99 Carbon Dioxide 28 BUN 53 H Creatinine 5.58 H Glucose 135 H Calcium 8.9 - ABG Interpretation ABG results: PT/INR, D-dimer PT 16.1 Seconds (9.4-12.1) H 03/18/17 00:01 Consult Discharge Plan - Plan Referrals: ALTA DELGADILLO [Other] - 04/01/17 4:15 pm NONE,PCP [Primary Care Provider] -
[2017-03-25] MEDS: Mag Hydrox/Al Hydrox/Simeth 30 ML UDC PO PRN ×2 (15:25→21:19)
[2017-03-25] MEDS: 0.9 % Sodium Chloride 1,000 ML IVC SCH (15:25)
[2017-03-25] MEDS ORDERED: 0.9 % Sodium Chloride 2,000 ML ONE (16:15)
[2017-03-26 04:10] LABS: Hematocrit 27.4 % (37.5-50.1); Hemoglobin 8.7 g/dL (12.9-16.9); Mean Corpuscular HGB Conc 31.8 g/dL (31.6-35.5); Mean Corpuscular Hemoglobin 26.6 pg (28.0-33.3); Mean Corpuscular Volume 83.8 fL (83.0-100.0); Mean Platelet Volume 8.8 fL (9.4-12.4); Red Blood Count 3.27 M/mcL (4.19-5.50); Red Cell Distribution Width 14.1 % (11.5-14.5)
[2017-03-26 04:24] LABS: Calcium 8.7 mg/dL (8.6-10.8); Potassium 3.9 mEq/L (3.5-4.5)
[2017-03-26] MEDS: *HR* Heparin 5,000 UNIT/ML VIAL SQ SCH ×2 (05:20→14:09)
[2017-03-26] MEDS: Metoclopramide 10 MG/2 ML VIAL IVP SCH ×3 (05:20→11:47)
[2017-03-26] MEDS: Sennosides/Docusate Sodium TABLET PO SCH ×2 (07:58→20:01)
[2017-03-26] MEDS: amLODIPine 5 MG TABLET PO SCH ×2 (07:59→20:02)
[2017-03-26] MEDS: Aspirin 81 MG TAB.CHEW PO SCH (07:59)
[2017-03-26] MEDS: Sucralfate 1 GM TABLET PO SCH ×4 (07:59→20:01)
[2017-03-26] MEDS: Pantoprazole 40 MG VIAL IVP SCH (07:59)
[2017-03-26] MEDS: Insulin LISPRO 300 UNITS/3 ML VIAL SQ SCH ×4 (08:00→20:03)
--- NOTE | 2017-03-26 09:02 | Nephrology Progress Note ---
Date of Encounter: 03/26/17 Time of Encounter: 08:40 - Assessment and Plan (1) SHARON (acute kidney injury) Current Visit: Yes Status: Acute SHARON in setting of rabdo. Creat 4.62. Urine output documented 750 cc. NO HD today , will continue to monitor. Subjective Principal diagnosis: Rhabdo Interval history: Sitting up in bed, at bedside. Has hiccups. Denies nausea. Objective - Vital Signs Vital signs: Vital Signs Temp Pulse Resp BP Pulse Ox 03/26/17 08:34 79 03/26/17 07:23 98.3 F 77 20 145/82 97 03/26/17 04:04 69 03/26/17 03:50 98.5 F 78 18 137/85 94 03/26/17 00:15 72 03/26/17 00:14 98.2 F 85 16 144/83 96 03/25/17 21:00 77 03/25/17 19:06 98.1 F 88 16 145/87 97 03/25/17 15:41 98.2 F 83 15 135/80 96 03/25/17 13:00 98 F 18 141/76 03/25/17 12:15 140/77 03/25/17 12:00 138/84 03/25/17 11:30 149/84 03/25/17 11:00 132/82 03/25/17 10:30 139/87 03/25/17 10:00 118/81 03/25/17 09:30 97.5 F L 18 139/78 Intake and Output 03/25/17 03/26/17 03/26/17 23:59 07:59 15:59 Intake Total 300 / 300 Output Total 400 / 400 Balance -100 / -100 Intake: Oral 300 / 300 Output: Catheter 400 / 400 Other: Stool Size Small Small Stool Consistency loose loose # Bowel Movements 1 Weight 104.372 kg Blood Glucose* 152 145 Patient Weight 03/26/17 23:59 Weight 104.372 kg - General Appearance General appearance: Present: well-developed, well-nourished, appears started age , obese EENT: Present: mucous membranes moist Neck: Present: no JVD Respiratory: Present: clear Cardiology: Present: edema, regular rate, regular rhythm Additional Comments: mild pitting Gastrointestinal: Present: normoactive bowel sounds, tenderness Integumentary: Present: warm and dry Neurologic: Present: alert and oriented x3 Psychiatric: Present: mood/affect appropriate, cooperative - Lab 03/26/17 04:07 03/26/17 04:07 Most recent lab results Calcium 8.7 mg/dL (8.6-10.8) 03/26/17 04:07 Phosphorus 6.3 mg/dL (2.3-4.7) H 03/22/17 04:15 Magnesium 1.6 mg/dL (1.6-2.6) 03/23/17 05:35 Consult Discharge Plan - Plan Referrals: ALTA DELGADILLO [Other] - 04/01/17 4:15 pm NONE,PCP [Primary Care Provider] -
--- NOTE | 2017-03-26 12:48 | Discharge Summary ---
Date of Encounter: 03/26/17 Time of Encounter: 12:45 - Discharge Diagnosis (1) Ileus Priority: Primary Status: Acute (2) SHARON (acute kidney injury) Priority: Primary Status: Acute (3) Urinary retention Priority: Primary Status: Acute (4) Rhabdomyolysis Priority: Primary Status: Acute Qualifiers: Rhabdomyolysis type: non-traumatic Qualified Code(s): M62.82 - Rhabdomyolysis (5) Diabetes mellitus Priority: Secondary Status: Chronic Qualifiers: Diabetes mellitus type: type 2 Diabetes mellitus complication status: with unspecified complications Diabetes mellitus exterminator termite insulin use: without fci use Qualified Code(s): E11.8 - Type 2 diabetes mellitus with unspecified complications (6) Hypertension Priority: Secondary Status: Chronic Qualifiers: Hypertension type: essential hypertension Qualified Code(s): I10 - Essential (primary) hypertension - Discharge Medications Prescriptions: OxyCODONE/APAP 5/325 [Percocet 5/325 MG] 1 each PO Q6HR PRN #20 PRN Reason: Pain Home Medications: Docusate [Colace] 100 mg PO BID 03/17/17 [History] Omeprazole [PriLOSEC] 40 mg PO DAILY 03/17/17 [History] Ondansetron ODT [Zofran ODT] 4 mg PO Q6H PRN 03/17/17 [History] Silodosin [Rapaflo] 8 mg PO DAILY 03/17/17 [History] Sucralfate [Carafate] 1 gm PO QID 03/17/17 [History] Sulfamethoxazole/Trimeth DS [Bactrim Ds] 1 each PO BID 03/17/17 [History] amLODIPine [Norvasc] 5 mg PO BID 03/17/17 [History] Aspirin 81 mg PO DAILY 03/26/17 [Rx] Insulin LISPRO [HumaLOG] 0 units SQ TIDAC vial 03/26/17 [Rx] OxyCODONE/APAP 5/325 [Percocet 5/325 MG] 1 each PO Q6HR PRN #20 03/26/17 [Rx] Allergies/Adverse Reactions: 3 Allergy/AdvReac Type Severity Reaction Status Date / Time No Known Allergies Allergy Verified 03/17/17 21:44 Date of admission: 03/18/17 06:21 Primary care physician: PCP NONE Consults: 03/18/17 04:27 Consult to Physical Therapy [CONS] Routine Comment: Evaluate, develop and implement POC Reason for Consult: BLE weakness OT [Consult to Occupational Therapy] [CONS] Routine Comment: Evaluate, develop and implement POC Reason for Consult: BLE weakness 03/18/17 09:17 Consult to Machine Stonecutter [CONS] Routine Reason for SW Consult: in patient rehab per pt/ot 03/18/17 10:08 Consult to Nephrology [CONS] Routine Consulting Provider: [facility] Reason for Consult: Acute renal failure, rhabdomyolysis Call Completed: Yes 03/18/17 13:56 Consult to Cardiology [CONS] Routine Comment: Consulting Provider: Cardiology [facility] Reason for Consult: Troponin elevation, rhabdomyolysis, Sharon Call Completed: No 03/20/17 11:06 Consult to Surgery [CONS] Routine Consulting Provider: Surgery [facility] Reason for Consult: Ileus, persistent nausea, abdominal distension Call Completed: Yes 03/22/17 08:34 Consult to Interventional Radiology [CONS] Routine Consulting Provider: Radiology Interventional [facility] Reason for Consult: place temporary dialysis catheter Time Notified: 08:34 Call Completed: No 03/22/17 08:45 Consult to Dialysis [CONS] ONCE 03/23/17 08:15 Consult to Dialysis [CONS] ONCE 03/25/17 08:15 Consult to Dialysis [CONS] ONCE - Patient Status Disposition: Transfer SNF Condition: Fair Overall status at discharge: patient is progressing back to baseline - Discharge Instructions Follow Up With: ALTA DELGADILLO [Other] - 04/01/17 4:15 pm NONE,PCP [Primary Care Provider] - Additional Instructions: Continue dialyses and follow-up with nephrology. Keep Toledo catheter in place until being evaluated by urology. Avoid nephrotoxins. - Diet and Activity Activity: increase activity as tolerated Diet: diabetic diet (Renal diet) Hospital course: Mr. Zacarias is a 71 year old male with PMH of DM, HTN and history of kidney stone s /p lithotripsy & right ureteral stent placement on 03/07/17 and laparoscopic cholecystectomy on 03/10/17 at [facility]. Patient had the right ureteral stent removed & Toledo removed yesterday and reports difficulty urinating since. Patient reports having sudden onset of bilateral lower extremity weakness resulting in a fall in bathroom at 11 PM last night. Patient was unable to get up so remained on the floor until being found at 7:30 AM. Patient denies loss of consciousness and reports back pain and pain of bilateral hips, knees and feet after fall. Patient also reports some abdominal fullness, nausea, dry heaving and loosen stool. Patient states his LOREN drain was removed today. Patient feels that weakness now also progressed to affect his upper extremities. Patient denies shortness of breath, cough, chest pain, palpitation , numbness/tingling, vision change, hearing change. Patient denies recent sick contact or travel. Patient denies recent trauma, injury or fall prior to the fall last night. Patient is full code. Lab at [facility] revealed WBC 11.8, Hgb 12.0, Plt 355, Na 131, K 3.0, Cl 93 , HCO3 23, BUN 24 and Cr 2.1, which dropped from Cr 1.2 on 03/15/17. First troponin 1.59 at 1359 and 1.57 at 1748. UA is positive for nitrite but negative for leukocyte esterase. Patient received one dose of IV levofloxacin, History of recent cholecystectomy Had significant bilateral lower extremity weakness leading to ground level fall and remaining on the ground for about 8 hours. Also noted to be on statin ( according to prior records, the patient denies it) . CK was 36,484 Had no prior diagnosis of chronic kidney disease. However, his renal dysfunction began during the recent admission at [facility] for urinary retention and right-sided hydroureter/hydronephrosis due to ureterolithiasis. He had placement of right ureteral stent and subsequent removal. CT abdomen and pelvis shows dilated small bowel loops with air fluid levels with no transition point, suggestive of ileus. Surgery was consulted. Patient significantly improved symptomatically after nasogastric tube placement. NG tube removed on 03/24/17, advanced and tolerated diet. Nephrology recommended to start dialysis in a temporary dialysis and a temporary catheter was placed on the right IJ. Creatinine increased up to 7.46, today's 4.62. - Time Spent with Patient Total time spent providing and/or coordinating discharge services: Greater than 30 minutes (40 min) - Constitutional Vitals: Temp Pulse Resp BP Pulse Ox 98.4 F 72 18 135/80 94 03/26/17 11:33 03/26/17 11:48 03/26/17 11:33 03/26/17 11:33 03/26/17 11:33 General appearance: Present: cooperative, A&O X 3, obese, answers questions appropriately Exam: Head Head exam: Present: atraumatic, normocephalic Additional comments: Right IJ temp dialysis catheter - Eye Eye exam: Present: PERRL, conjuntiva pink, sclera anicteric Pupils: Present: PERRL - Neck Neck exam general surgery: Present: supple, trachea midline. Absent: lymphadenopathy - Respiratory Respiratory exam: Present: CTAB. Absent: accessory muscle use, rales, rhonchi, wheezes - Cardiovascular Cardiovascular exam: Present: RRR, +S1, +S2. Absent: diastolic murmur, gallop, rubs, systolic murmur - GI/Abdominal GI/Abdominal exam: Present: normal bowel sounds, soft, no peritoneal signs. Absent: distended, tenderness - Extremities Exam Extremities exam: Present: warm, radial pulses palpable and symmetrical. Absent : calf tenderness, cyanotic, pedal edema - Neurological Exam Neurological exam: Present: CN II-XII intact, oriented X3, no focal deficits. Absent: pronater drift, facial droop, speech deficit - Skin Skin exam: Present: dry, intact Additional comments: surgical wounds in abdomen without signs of infection toledo in place
--- NOTE | 2017-03-26 13:01 | Physician Discharge Referral ---
ExtendedCare Referral Info Provider in Charge after Transfer: PCP Institutional Level of Care: Skilled - Diagnosis (1) Ileus Status: Acute (2) SHARON (acute kidney injury) Status: Acute (3) Urinary retention Status: Acute (4) Rhabdomyolysis Status: Acute (5) Diabetes mellitus Status: Chronic (6) Hypertension Status: Chronic - Transfer Medications Prescriptions: OxyCODONE/APAP 5/325 [Percocet 5/325 MG] 1 each PO Q6HR PRN #20 PRN Reason: Pain Home Medications: Docusate [Colace] 100 mg PO BID 03/17/17 [History] Omeprazole [PriLOSEC] 40 mg PO DAILY 03/17/17 [History] Ondansetron ODT [Zofran ODT] 4 mg PO Q6H PRN 03/17/17 [History] Silodosin [Rapaflo] 8 mg PO DAILY 03/17/17 [History] Sucralfate [Carafate] 1 gm PO QID 03/17/17 [History] Sulfamethoxazole/Trimeth DS [Bactrim Ds] 1 each PO BID 03/17/17 [History] amLODIPine [Norvasc] 5 mg PO BID 03/17/17 [History] Aspirin 81 mg PO DAILY 03/26/17 [Rx] Insulin LISPRO [HumaLOG] 0 units SQ TIDAC vial 03/26/17 [Rx] OxyCODONE/APAP 5/325 [Percocet 5/325 MG] 1 each PO Q6HR PRN #20 03/26/17 [Rx] Allergies/Adverse Reactions: 3 Allergy/AdvReac Type Severity Reaction Status Date / Time No Known Allergies Allergy Verified 03/17/17 21:44 - Respiratory Orders Smoking Cessation: Smoking cessation has been advised. For more information, call the [place] Tobacco Quit Line at 9-603-SMNW-NOW. - Advance Directives Code Status: Full Code - Diet Orders Renal House Supplement per Dietary: Continue dialyses and follow-up with nephrology. Keep Smith catheter in place until being evaluated by urology. Avoid nephrotoxins. CERTIFICATION: I certify that the transfer of the above named patient to an Extended Care Facility is necessary for the continuing treatment of the diagnosis listed. The above information is true and accurate reflection of patient's current condition. Confidential - Redisclosure prohibited without a patient's written consent.
[2017-03-26] MEDS: Mag Hydrox/Al Hydrox/Simeth 30 ML UDC PO PRN (14:35)
[2017-03-27] MEDS: *HR* Heparin 5,000 UNIT/ML VIAL SQ SCH ×3 (02:18→13:01)
[2017-03-27 04:42] LABS: Basophils % 0.3 %; Eosinophils # 0.3 K/mcL (0.0-0.6); Eosinophils % 3.7 %; Hematocrit 26.2 % (37.5-50.1); Hemoglobin 8.4 g/dL (12.9-16.9); Immature Granulocytes % 0.4 % (0-4); Lymphocytes # 1.3 K/mcL (0.6-4.6); Lymphocytes % 19.5 %; Mean Corpuscular HGB Conc 32.1 g/dL (31.6-35.5); Mean Corpuscular Hemoglobin 26.9 pg (28.0-33.3); Monocytes # 0.7 K/mcL (0.0-1.3); Monocytes % 9.7 %; Neutrophils # 4.5 K/mcL (1.6-8.9); Platelet Count 241 K/mcL (140-400); Red Blood Count 3.12 M/mcL (4.19-5.50); Red Cell Distribution Width 14.5 % (11.5-14.5); Segmented Neutrophils % 66.4 %
[2017-03-27 05:01] LABS: Calcium 8.3 mg/dL (8.6-10.8); Magnesium 1.3 mg/dL (1.6-2.6); Phosphorous 4.1 mg/dL (2.3-4.7); Potassium 3.7 mEq/L (3.5-4.5)
[2017-03-27] MEDS ORDERED: Furosemide 40 MG/4 ML VIAL IVP ONE (07:57)
--- NOTE | 2017-03-27 07:57 | Nephrology Progress Note ---
Date of Encounter: 03/27/17 Time of Encounter: 07:55 - Assessment and Plan (1) SHARON (acute kidney injury) Current Visit: Yes Status: Acute The patient has acute kidney injury in the setting of rhabdomyolysis. The patient's last dialysis was . The rate of rise of serum creatinine may be slowing possibly indicating that he is going to plateau. Livia elect to not dialyze the patient today. He will be reevaluated tomorrow. From renal standpoint I think it is too early to consider hospital discharge for this patient. I think he needs to be closely monitored. We need to wait until we have a trend as to whether or not he is entering the recovery phase of his acute kidney injury. Given 1 dose of Lasix today to increase his urine output. (2) Rhabdomyolysis Current Visit: Yes Status: Acute Qualifiers: Rhabdomyolysis type: non-traumatic Qualified Code(s): M62.82 - Rhabdomyolysis (3) Ileus Current Visit: Yes Status: Acute Subjective Principal diagnosis: Rhabdo Interval history: The patient's overall clinical status continues to improve but remains quite debilitated. Creatinine is increased slightly from 4.62-4.86. Urine output is 975 mL. Last dialysis was . Objective - Vital Signs Vital signs: Vital Signs Temp Pulse Resp BP Pulse Ox 03/27/17 04:00 98.4 F 74 18 141/82 95 03/27/17 00:00 98 F 71 18 95 03/26/17 19:26 98.2 F 82 18 149/89 95 03/26/17 19:00 82 03/26/17 16:37 97.7 F 78 18 148/91 98 03/26/17 15:53 79 03/26/17 11:48 72 03/26/17 11:33 98.4 F 72 18 135/80 94 03/26/17 08:34 79 Intake and Output 03/26/17 03/26/17 03/27/17 15:59 23:59 07:59 Intake Total 360 / 360 170 / 170 Output Total 225 / 225 350 / 350 Balance 135 / 135 -180 / -180 Intake: Oral 360 / 360 170 / 170 Output: Catheter 225 / 225 350 / 350 Other: Meal Lunch Dinner Percent of Meal Consumed 90% 100% Stool Size Small Stool Consistency formed Weight 107.9 kg Blood Glucose* 153 190 136 Patient Weight 03/27/17 23:59 Weight 107.9 kg - General Appearance Exam: Patient is alert and oriented. He is in no acute distress. Lungs much breath sounds otherwise clear. Heart regular rate and rhythm. Abdomen slightly distended but soft. No tenderness. There is 1-2+ lower extremity swelling. Smith catheter is in place. There is a temporary dialysis catheter in the right internal jugular vein. - Lab 03/27/17 04:00 03/27/17 04:00 Most recent lab results Calcium 8.3 mg/dL (8.6-10.8) L 03/27/17 04:00 Phosphorus 4.1 mg/dL (2.3-4.7) 03/27/17 04:00 Magnesium 1.3 mg/dL (1.6-2.6) L 03/27/17 04:00 Consult Discharge Plan - Plan Additional Instructions: Continue dialyses and follow-up with nephrology. Keep Smith catheter in place until being evaluated by urology. Avoid nephrotoxins. Referrals: ALTA DELGADILLO [Other] - 04/01/17 4:15 pm NONE,PCP [Primary Care Provider] - Prescriptions: OxyCODONE/APAP 5/325 [Percocet 5/325 MG] 1 each PO Q6HR PRN #20 PRN Reason: Pain
[2017-03-27] MEDS: Sennosides/Docusate Sodium TABLET PO SCH ×2 (08:13→19:34)
[2017-03-27] MEDS: Aspirin 81 MG TAB.CHEW PO SCH (08:14)
[2017-03-27] MEDS: amLODIPine 5 MG TABLET PO SCH ×2 (08:14→19:34)
[2017-03-27] MEDS: Sucralfate 1 GM TABLET PO SCH ×4 (08:14→19:34)
[2017-03-27] MEDS: Insulin LISPRO 300 UNITS/3 ML VIAL SQ SCH ×4 (08:15→21:50)
[2017-03-27] MEDS: 0.9 % Sodium Chloride 1,000 ML IVC SCH (09:57)
--- NOTE | 2017-03-27 14:24 | Internal Med Progress Note ---
Date of Encounter: 03/27/17 Time of Encounter: 14:20 - Assessment and plan (1) Ileus Current Visit: Yes Status: Acute Assessment and plan: Results CT abdomen and pelvis shows dilated small bowel loops with air fluid levels with no transition point, suggestive of ileus. NG tube was removed on 03/24/17, advance diet as tolerate, full liquids and low residue diet for dinner, IV fluids Surgery consulted Continue Protonix (2) SHARON (acute kidney injury) Current Visit: Yes Status: Acute Assessment and plan: Noted to have acute renal failure. History of recent cholecystectomy no diagnosis of chronic kidney disease. However, his renal dysfunction began during the recent admission at [facility] for urinary retention and right-sided hydroureter/hydronephrosis due to ureterolithiasis. He had placement of right ureteral stent and subsequent removal. Nephrology consulted temporary hemodialysis catheter was placed with subsequent hemodialysis. Followed by Dr. Garcia, recommendations appreciated (3) Urinary retention Current Visit: Yes Status: Acute Assessment and plan: Keep Toledo catheter and monitor urine output. CT abdomen/pelvis showed right renal nonobstructive stones. Renal ultrasound shows nonobstructing stone in the lower pole of right kidney, no hydronephrosis or hydroureter. Continue to monitor closely. (4) Rhabdomyolysis Current Visit: Yes Status: Acute Assessment and plan: Significant bilateral lower extremity weakness leading to ground level fall and remaining on the ground for about 8 hours. Also noted to be on statin ( according to prior records, the patient denies it) . CK was 36,484 Continue IV hydration, suspect acute kidney injury related to rhabdomyolysis. Qualifiers: Rhabdomyolysis type: non-traumatic Qualified Code(s): M62.82 - Rhabdomyolysis (5) Diabetes mellitus Current Visit: Yes Status: Chronic Assessment and plan: Continue Accu-Chek blood glucose monitoring with sliding scale insulin. Currently NPO. 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 Making lots of urine - Constitutional Vitals: Temp Pulse Resp BP Pulse Ox 98.2 F 66 16 142/81 100 03/27/17 10:29 03/27/17 10:29 03/27/17 10:29 03/27/17 10:29 03/27/17 10:29 General appearance: Present: cooperative, A&O X 3, obese, answers questions appropriately Exam: Head Head exam: Present: atraumatic, normocephalic Additional comments: Right IJ temp dialysis catheter - Eye Eye exam: Present: PERRL, conjuntiva pink, sclera anicteric Pupils: Present: PERRL - Neck Neck exam general surgery: Present: supple, trachea midline. Absent: lymphadenopathy - Respiratory Respiratory exam: Present: CTAB. Absent: accessory muscle use, rales, rhonchi, wheezes - Cardiovascular Cardiovascular exam: Present: RRR, +S1, +S2. Absent: diastolic murmur, gallop, rubs, systolic murmur - GI/Abdominal GI/Abdominal exam: Present: normal bowel sounds, soft, no peritoneal signs. Absent: distended, tenderness - Extremities Exam Extremities exam: Present: warm, radial pulses palpable and symmetrical. Absent : calf tenderness, cyanotic, pedal edema - Neurological Exam Neurological exam: Present: CN II-XII intact, oriented X3, no focal deficits. Absent: pronater drift, facial droop, speech deficit - Skin Skin exam: Present: dry, intact Additional comments: surgical wounds in abdomen without signs of infection toledo in place Internal Medicine: Result - Labs CBC & Chem 7: 03/27/17 04:00 03/27/17 04:00 Labs: Short CBC 03/27/17 Range/Units 04:00 WBC 6.7 (4.3-11.1) K/mcL Hgb 8.4 L (12.9-16.9) g/dL Hct 26.2 L (37.5-50.1) % Plt Count 241 (140-400) K/mcL Neutrophils # 4.5 (1.6-8.9) K/mcL BMP 03/27/17 04:00 Sodium 140 Potassium 3.7 Chloride 104 Carbon Dioxide 26 BUN 50 H Creatinine 4.86 H Glucose 126 H Calcium 8.3 L - ABG Interpretation ABG results: PT/INR, D-dimer PT 16.1 Seconds (9.4-12.1) H 03/18/17 00:01 - Impressions Impressions Abdomen CT 03/18/17 00:18 IMPRESSION: 1. Stranding in the gallbladder fossa without focal fluid collection to suggest hematoma or bile leak. 2. Nonobstructing right renal calculi. 3. Lipoma in the ascending colon. There is distal colonic diverticulosis but no evidence for diverticulitis. D/ / 03/18/2017 07:03:57 Allan Anthony MD / [facility] Interpreting Provider: Allan Anthony MD Head CT 03/18/17 00:18 IMPRESSION: Mild to moderate small vessel chronic ischemic changes with no acute hemorrhage or large zone of acute ischemia. D/ / 03/18/2017 07:01:24 Allan Anthony MD / [facility] Interpreting Provider: Allan Anthony MD Consult Discharge Plan - Plan Additional Instructions: Continue dialyses and follow-up with nephrology. Keep Toledo catheter in place until being evaluated by urology. Avoid nephrotoxins. Referrals: ALTA DELGADILLO [Other] - 04/01/17 4:15 pm NONE,PCP [Primary Care Provider] - Prescriptions: OxyCODONE/APAP 5/325 [Percocet 5/325 MG] 1 each PO Q6HR PRN #20 PRN Reason: Pain
[2017-03-27] MEDS: Mag Hydrox/Al Hydrox/Simeth 30 ML UDC PO PRN (23:22)
[2017-03-28] MEDS: *HR* Heparin 5,000 UNIT/ML VIAL SQ SCH ×4 (01:37→21:28)
[2017-03-28 05:32] LABS: Albumin 2.5 g/dL (3.5-5.0); Albumin/Globulin Ratio 0.8 (1.1-2.2); Bilirubin,Total 0.7 mg/dL (0.2-1.2); Calcium 8.9 mg/dL (8.6-10.8); Globulin 3.3 g/dL (2.4-3.5); Potassium 3.4 mEq/L (3.5-4.5); Total Protein 5.8 g/dL (6.0-8.3)
[2017-03-28] MEDS: Sucralfate 1 GM TABLET PO SCH ×4 (07:23→21:27)
[2017-03-28] MEDS: Insulin LISPRO 300 UNITS/3 ML VIAL SQ SCH ×4 (07:23→21:28)
[2017-03-28] MEDS: Sennosides/Docusate Sodium TABLET PO SCH ×2 (07:31→21:28)
[2017-03-28] MEDS: amLODIPine 5 MG TABLET PO SCH ×2 (07:31→21:27)
[2017-03-28] MEDS: Aspirin 81 MG TAB.CHEW PO SCH (07:32)
--- NOTE | 2017-03-28 07:50 | Nephrology Progress Note ---
Date of Encounter: 03/28/17 Time of Encounter: 07:49 - Assessment and Plan (1) SHARON (acute kidney injury) Current Visit: Yes Status: Acute The patient has acute kidney injury in the setting of rhabdomyolysis. The patient's last dialysis was . The patient's urine output is increased as of yesterday. Serum creatinine is only slightly increased compared to the previous day. For these reasons we are going to hold his dialysis today and continue to monitor him. He will be given some potassium supplementation. (2) Rhabdomyolysis Current Visit: Yes Status: Acute Qualifiers: Rhabdomyolysis type: non-traumatic Qualified Code(s): M62.82 - Rhabdomyolysis (3) Ileus Current Visit: Yes Status: Acute Subjective Principal diagnosis: Rhabdo Interval history: Patient voices no new complaints. He feels overall he is slowly getting stronger. Urine output is markedly increased. Creatinine is only increased by a slight amount compared to yesterday. Objective - Vital Signs Vital signs: Vital Signs Temp Pulse Resp BP Pulse Ox 03/28/17 07:36 64 03/28/17 07:03 97.9 F 67 18 136/72 98 03/28/17 03:29 98.3 F 61 18 150/84 99 03/27/17 23:00 70 03/27/17 22:34 98.2 F 70 20 151/86 99 03/27/17 19:12 98.3 F 70 18 138/80 98 03/27/17 16:31 97.8 F 63 18 150/75 99 03/27/17 15:02 67 100 03/27/17 10:29 98.2 F 66 16 142/81 100 03/27/17 08:10 97.8 F 78 16 137/84 98 Intake and Output 03/27/17 03/27/17 03/28/17 15:59 23:59 07:59 Intake Total 560 / 560 480 / 480 200 / 200 Output Total 1575 / 1575 600 / 600 600 / 600 Balance -1015 / -1015 -120 / -120 -400 / -400 Intake: Oral 560 / 560 480 / 480 0 / 0 Free Water 200 / 200 Output: Urine 0 / 0 Catheter 1575 / 1575 600 / 600 600 / 600 Other: Meal Lunch Dinner Percent of Meal Consumed 100% 100% Stool Size Small Small Small Stool Consistency soft formed soft Stool Characteristics Normal for Patient Normal for Patient Stool Color Brown # Bowel Movements 1 1 Weight 107.4 kg Blood Glucose* 177 157 133 Patient Weight 03/28/17 23:59 Weight 107.4 kg - General Appearance Exam: Patient is alert and oriented. He is in no acute distress. Vital signs are stable. Lungs clear to auscultation. Heart regular rate and rhythm. Abdomen is soft. There is still some lower extremity swelling. Smith catheter is in place. There is a temporary dialysis catheter in the right internal jugular vein. - Lab 03/27/17 04:00 03/28/17 05:00 Most recent lab results Calcium 8.9 mg/dL (8.6-10.8) 03/28/17 05:00 Phosphorus 4.1 mg/dL (2.3-4.7) 03/27/17 04:00 Magnesium 1.3 mg/dL (1.6-2.6) L 03/27/17 04:00 Consult Discharge Plan - Plan Additional Instructions: Continue dialyses and follow-up with nephrology. Keep Smith catheter in place until being evaluated by urology. Avoid nephrotoxins. Referrals: ALTA DELGADILLO [Other] - 04/01/17 4:15 pm NONE,PCP [Primary Care Provider] - Prescriptions: OxyCODONE/APAP 5/325 [Percocet 5/325 MG] 1 each PO Q6HR PRN #20 PRN Reason: Pain
--- NOTE | 2017-03-28 14:16 | Internal Med Progress Note ---
Date of Encounter: 03/28/17 Time of Encounter: 14:13 - Assessment and plan (1) SHARON (acute kidney injury) Current Visit: Yes Status: Acute Assessment and plan: acute renal failure likely related to rhabdomyolysis. History of recent cholecystectomy no diagnosis of chronic kidney disease. However, his renal dysfunction began during the recent admission at [facility] for urinary retention and right-sided hydroureter/hydronephrosis due to ureterolithiasis. He had placement of right ureteral stent and subsequent removal. Nephrology consulted temporary hemodialysis catheter was placed with subsequent hemodialysis. Followed by Dr. Garcia, recommendations appreciated (2) Ileus Current Visit: Yes Status: Acute Assessment and plan: Results CT abdomen and pelvis shows dilated small bowel loops with air fluid levels with no transition point, suggestive of ileus. NG tube was removed on 03/24/17, advance diet as tolerate, low residue diet , IV fluids managed by Nephrology Surgery consulted Continue Protonix (3) Urinary retention Current Visit: Yes Status: Acute Assessment and plan: Keep Tol[place] catheter and monitor urine output. CT abdomen/pelvis showed right renal nonobstructive stones. Renal ultrasound shows nonobstructing stone in the lower pole of right kidney, no hydronephrosis or hydroureter. Continue to monitor closely. (4) Rhabdomyolysis Current Visit: Yes Status: Acute Assessment and plan: Significant bilateral lower extremity weakness leading to ground level fall and remaining on the ground for about 8 hours. Also noted to be on statin ( according to prior records, the patient denies it) . CK was 36,484 Continue IV hydration, suspect acute kidney injury related to rhabdomyolysis. Qualifiers: Rhabdomyolysis type: non-traumatic Qualified Code(s): M62.82 - Rhabdomyolysis (5) Diabetes mellitus Current Visit: Yes Status: Chronic Assessment and plan: Continue Accu-Chek blood glucose monitoring with sliding scale insulin. Currently NPO. Qualifiers: Diabetes mellitus type: type 2 Diabetes mellitus complication status: with unspecified complications Diabetes mellitus terminal clerk insulin use: without terminal clerk use Qualified Code(s): E11.8 - Type 2 diabetes mellitus with unspecified complications (6) Hypertension Current Visit: Yes Status: Chronic Qualifiers: Hypertension type: essential hypertension Qualified Code(s): I10 - Essential (primary) hypertension - Subjective Interval history: Tolerating diet fine , abdomen less distended, feeling slightly bloated, denies CP or SOB, no fever, no headache. Making lots of urine - Constitutional Vitals: Temp Pulse Resp BP Pulse Ox 98.2 F 64 18 139/73 99 03/28/17 10:55 03/28/17 11:22 03/28/17 10:55 03/28/17 10:55 03/28/17 10:55 General appearance: Present: cooperative, A&O X 3, obese, answers questions appropriately Exam: General appearance: Present: cooperative, A&O X 3, obese, answers questions appropriately Exam: Head Head exam: Present: atraumatic, normocephalic Additional comments: Right IJ temp dialysis catheter - Eye Eye exam: Present: PERRL, conjuntiva pink, sclera anicteric Pupils: Present: PERRL - Neck Neck exam general surgery: Present: supple, trachea midline. Absent: lymphadenopathy - Respiratory Respiratory exam: Present: CTAB. Absent: accessory muscle use, rales, rhonchi, wheezes - Cardiovascular Cardiovascular exam: Present: RRR, +S1, +S2. Absent: diastolic murmur, gallop, rubs, systolic murmur - GI/Abdominal GI/Abdominal exam: Present: normal bowel sounds, soft, no peritoneal signs. Absent: distended, tenderness - Extremities Exam Extremities exam: Present: warm, radial pulses palpable and symmetrical. Absent : calf tenderness, cyanotic, pedal edema - Neurological Exam Neurological exam: Present: CN II-XII intact, oriented X3, no focal deficits. Absent: pronater drift, facial droop, speech deficit - Skin Skin exam: Present: dry, intact Additional comments: surgical wounds in abdomen without signs of infection toledo in place Internal Medicine: Result - Labs CBC & Chem 7: 03/27/17 04:00 03/28/17 05:00 Labs: BMP 03/28/17 05:00 Sodium 140 Potassium 3.4 L Chloride 103 Carbon Dioxide 25 BUN 56 H Creatinine 5.11 H Glucose 124 H Calcium 8.9 Liver Function 03/28/17 Range/Units 05:00 Total Bilirubin 0.7 (0.2-1.2) mg/dL AST 48 H (5-34) Units/L ALT 84 H (0-55) Units/L Alkaline Phosphatase 55 (38-126) Units/L Albumin 2.5 L (3.5-5.0) g/dL - ABG Interpretation ABG results: PT/INR, D-dimer PT 16.1 Seconds (9.4-12.1) H 03/18/17 00:01 Consult Discharge Plan - Plan Additional Instructions: Continue dialyses and follow-up with nephrology. Keep Toledo catheter in place until being evaluated by urology. Avoid nephrotoxins. Referrals: ALTA DELGADILLO [Other] - 04/01/17 4:15 pm NONE,PCP [Primary Care Provider] - Prescriptions: OxyCODONE/APAP 5/325 [Percocet 5/325 MG] 1 each PO Q6HR PRN #20 PRN Reason: Pain
[2017-03-29 04:10] LABS: Basophils % 0.5 %; Eosinophils # 0.2 K/mcL (0.0-0.6); Eosinophils % 2.6 %; Hemoglobin 7.9 g/dL (12.9-16.9); Immature Granulocytes % 0.5 % (0-4); Lymphocytes # 1.3 K/mcL (0.6-4.6); Lymphocytes % 21.2 %; Mean Corpuscular HGB Conc 31.6 g/dL (31.6-35.5); Mean Corpuscular Hemoglobin 26.4 pg (28.0-33.3); Mean Corpuscular Volume 83.6 fL (83.0-100.0); Mean Platelet Volume 8.9 fL (9.4-12.4); Monocytes # 0.6 K/mcL (0.0-1.3); Monocytes % 8.9 %; Neutrophils # 4.1 K/mcL (1.6-8.9); Platelet Count 210 K/mcL (140-400); Red Blood Count 2.99 M/mcL (4.19-5.50); Red Cell Distribution Width 14.6 % (11.5-14.5); Segmented Neutrophils % 66.3 %
[2017-03-29 04:23] LABS: Albumin 2.3 g/dL (3.5-5.0); Albumin/Globulin Ratio 0.7 (1.1-2.2); Bilirubin,Total 0.6 mg/dL (0.2-1.2); Calcium 9.1 mg/dL (8.6-10.8); Globulin 3.4 g/dL (2.4-3.5); Potassium 3.6 mEq/L (3.5-4.5); Total Protein 5.7 g/dL (6.0-8.3)
[2017-03-29] MEDS: *HR* Heparin 5,000 UNIT/ML VIAL SQ SCH ×3 (06:19→22:05)
[2017-03-29] MEDS: Insulin LISPRO 300 UNITS/3 ML VIAL SQ SCH ×4 (08:15→20:45)
[2017-03-29] MEDS: amLODIPine 5 MG TABLET PO SCH ×2 (08:17→20:44)
[2017-03-29] MEDS: Aspirin 81 MG TAB.CHEW PO SCH (08:17)
[2017-03-29] MEDS: Sennosides/Docusate Sodium TABLET PO SCH ×2 (08:18→20:46)
[2017-03-29] MEDS: Sucralfate 1 GM TABLET PO SCH ×4 (08:18→20:45)
--- NOTE | 2017-03-29 08:30 | Nephrology Progress Note ---
Date of Encounter: 03/29/17 Time of Encounter: 08:28 - Assessment and Plan (1) SHARON (acute kidney injury) Current Visit: Yes Status: Acute The patient has acute kidney injury in the setting of rhabdomyolysis. The patient appears to be entering the recovery phase of his acute kidney injury. We will discontinue the Smith catheter and bladder scan the patient. We will monitor his renal function for 1 more day. If serum creatinine continues to decrease tomorrow we can discontinue the hemodialysis catheter and the patient should be able to be discharged to rehabilitation. (2) Rhabdomyolysis Current Visit: Yes Status: Acute Qualifiers: Rhabdomyolysis type: non-traumatic Qualified Code(s): M62.82 - Rhabdomyolysis (3) Ileus Current Visit: Yes Status: Acute Subjective Principal diagnosis: Rhabdo Interval history: Patient reports she continues to feel stronger. His serum creatinine has decreased for the first time. Urine output is 1.7 L. Objective - Vital Signs Vital signs: Vital Signs Temp Pulse Resp BP Pulse Ox 03/29/17 07:18 97.7 F 51 18 160/79 99 03/29/17 03:45 57 03/29/17 03:18 98 F 57 18 150/78 99 03/29/17 00:05 97.6 F 61 18 147/79 97 03/28/17 19:51 98.1 F 63 18 134/77 98 03/28/17 18:22 134/75 03/28/17 16:07 97.7 F 64 18 99 03/28/17 15:03 58 03/28/17 11:22 64 03/28/17 10:55 98.2 F 62 18 139/73 99 Intake and Output 03/28/17 03/29/17 03/29/17 23:59 07:59 15:59 Intake Total 160 / 160 Output Total 1125 / 1125 525 / 525 Balance -965 / -965 -525 / -525 Intake: Oral 160 / 160 Output: Urine 525 / 525 Urethral (Smith) 525 / 525 Catheter 1125 / 1125 Other: Meal Dinner Percent of Meal Consumed 100% Stool Size Small Small Stool Consistency loose loose Stool Color Brown # Bowel Movements 1 1 Weight 107 kg Blood Glucose* 178 113 Patient Weight 03/29/17 23:59 Weight 107 kg - General Appearance Exam: Patient is alert and oriented. He is in no acute distress. Lungs clear to auscultation. Heart regular rate and rhythm. Abdomen is soft. There is some lower extremity swelling. There is a temporary dialysis catheter in the right internal jugular vein. Smith catheter is in place. - Lab 03/29/17 03:50 03/29/17 03:50 Most recent lab results Calcium 9.1 mg/dL (8.6-10.8) 03/29/17 03:50 Phosphorus 4.1 mg/dL (2.3-4.7) 03/27/17 04:00 Magnesium 1.3 mg/dL (1.6-2.6) L 03/27/17 04:00 Consult Discharge Plan - Plan Additional Instructions: Continue dialyses and follow-up with nephrology. Keep Smith catheter in place until being evaluated by urology. Avoid nephrotoxins. Referrals: ALTA DELGADILLO [Other] - 04/01/17 4:15 pm NONE,PCP [Primary Care Provider] - Prescriptions: OxyCODONE/APAP 5/325 [Percocet 5/325 MG] 1 each PO Q6HR PRN #20 PRN Reason: Pain
--- NOTE | 2017-03-29 13:27 | Internal Med Progress Note ---
Date of Encounter: 03/29/17 Time of Encounter: 13:25 - Assessment and plan (1) SHARON (acute kidney injury) Current Visit: Yes Status: Acute Assessment and plan: acute renal failure likely related to rhabdomyolysis. History of recent cholecystectomy no diagnosis of chronic kidney disease. However, his renal dysfunction began during the recent admission at [facility] for urinary retention and right-sided hydroureter/hydronephrosis due to ureterolithiasis. He had placement of right ureteral stent and subsequent removal. Nephrology consulted temporary hemodialysis catheter was placed with subsequent hemodialysis. Followed by Dr. Garcia, recommendations appreciated (2) Ileus Current Visit: Yes Status: Acute Assessment and plan: Results CT abdomen and pelvis shows dilated small bowel loops with air fluid levels with no transition point, suggestive of ileus. NG tube was removed on 03/24/17, advance diet as tolerate, low residue diet , IV fluids managed by Nephrology Surgery consulted Continue omeprazole (3) Urinary retention Current Visit: Yes Status: Acute Assessment and plan: CT abdomen/pelvis showed right renal nonobstructive stones. Renal ultrasound shows nonobstructing stone in the lower pole of right kidney, no hydronephrosis or hydroureter. Smith catheter was removed today (4) Rhabdomyolysis Current Visit: Yes Status: Acute Assessment and plan: Significant bilateral lower extremity weakness leading to ground level fall and remaining on the ground for about 8 hours. Also noted to be on statin ( according to prior records, the patient denies it) . CK was 36,484 Continue IV hydration, suspect acute kidney injury related to rhabdomyolysis. Qualifiers: Rhabdomyolysis type: non-traumatic Qualified Code(s): M62.82 - Rhabdomyolysis (5) Diabetes mellitus Current Visit: Yes Status: Chronic Assessment and plan: Continue Accu-Chek blood glucose monitoring with sliding scale insulin. Currently NPO. Qualifiers: Diabetes mellitus type: type 2 Diabetes mellitus complication status: with unspecified complications Diabetes mellitus exterminator helper termite insulin use: without senior care use Qualified Code(s): E11.8 - Type 2 diabetes mellitus with unspecified complications (6) Hypertension Current Visit: Yes Status: Chronic Qualifiers: Hypertension type: essential hypertension Qualified Code(s): I10 - Essential (primary) hypertension - Subjective Interval history: Making urine after removing Smith catheter. Tolerating diet , abdomen less distended, feeling slightly bloated, denies CP or SOB, no fever, no headache. - Constitutional Vitals: Temp Pulse Resp BP Pulse Ox 97.7 F 58 18 126/110 99 03/29/17 11:15 03/29/17 11:15 03/29/17 11:15 03/29/17 11:15 03/29/17 11:15 General appearance: Present: cooperative, A&O X 3, obese, answers questions appropriately Exam: Head Head exam: Present: atraumatic, normocephalic Additional comments: Right IJ temp dialysis catheter - Eye Eye exam: Present: PERRL, conjuntiva pink, sclera anicteric Pupils: Present: PERRL - Neck Neck exam general surgery: Present: supple, trachea midline. Absent: lymphadenopathy - Respiratory Respiratory exam: Present: CTAB. Absent: accessory muscle use, rales, rhonchi, wheezes - Cardiovascular Cardiovascular exam: Present: RRR, +S1, +S2. Absent: diastolic murmur, gallop, rubs, systolic murmur - GI/Abdominal GI/Abdominal exam: Present: normal bowel sounds, soft, no peritoneal signs. Absent: distended, tenderness - Extremities Exam Extremities exam: Present: warm, radial pulses palpable and symmetrical. Absent : calf tenderness, cyanotic, pedal edema - Neurological Exam Neurological exam: Present: CN II-XII intact, oriented X3, no focal deficits. Absent: pronater drift, facial droop, speech deficit - Skin Skin exam: Present: dry, intact Additional comments: surgical wounds in abdomen without signs of infection Internal Medicine: Result - Labs CBC & Chem 7: 03/29/17 03:50 03/29/17 03:50 Labs: Short CBC 03/29/17 Range/Units 03:50 WBC 6.2 (4.3-11.1) K/mcL Hgb 7.9 L (12.9-16.9) g/dL Hct 25.0 L (37.5-50.1) % Plt Count 210 (140-400) K/mcL Neutrophils # 4.1 (1.6-8.9) K/mcL BMP 03/29/17 03:50 Sodium 140 Potassium 3.6 Chloride 104 Carbon Dioxide 26 BUN 59 H Creatinine 4.86 H Glucose 118 H Calcium 9.1 Liver Function 03/29/17 Range/Units 03:50 Total Bilirubin 0.6 (0.2-1.2) mg/dL AST 34 (5-34) Units/L ALT 66 H (0-55) Units/L Alkaline Phosphatase 50 (38-126) Units/L Albumin 2.3 L (3.5-5.0) g/dL - ABG Interpretation ABG results: PT/INR, D-dimer PT 16.1 Seconds (9.4-12.1) H 03/18/17 00:01 Consult Discharge Plan - Plan Additional Instructions: Continue dialyses and follow-up with nephrology. Keep Smith catheter in place until being evaluated by urology. Avoid nephrotoxins. Referrals: ALTA DELGADILLO [Other] - 04/01/17 4:15 pm NONE,PCP [Primary Care Provider] - Prescriptions: OxyCODONE/APAP 5/325 [Percocet 5/325 MG] 1 each PO Q6HR PRN #20 PRN Reason: Pain
[2017-03-30 04:37] LABS: Hematocrit 24.8 % (37.5-50.1); Hemoglobin 7.9 g/dL (12.9-16.9); Mean Corpuscular HGB Conc 31.9 g/dL (31.6-35.5); Mean Corpuscular Hemoglobin 26.5 pg (28.0-33.3); Mean Corpuscular Volume 83.2 fL (83.0-100.0); Mean Platelet Volume 9.7 fL (9.4-12.4); Platelet Count 227 K/mcL (140-400); Red Blood Count 2.98 M/mcL (4.19-5.50); Red Cell Distribution Width 14.6 % (11.5-14.5)
[2017-03-30 04:49] LABS: Albumin 2.4 g/dL (3.5-5.0); Albumin/Globulin Ratio 0.7 (1.1-2.2); Bilirubin,Total 0.5 mg/dL (0.2-1.2); Calcium 9.2 mg/dL (8.6-10.8); Globulin 3.4 g/dL (2.4-3.5); Potassium 3.6 mEq/L (3.5-4.5); Total Protein 5.8 g/dL (6.0-8.3)
[2017-03-30] MEDS: *HR* Heparin 5,000 UNIT/ML VIAL SQ SCH (05:29)
--- NOTE | 2017-03-30 08:20 | Nephrology Progress Note ---
Date of Encounter: 03/30/17 Time of Encounter: 08:09 - Assessment and Plan (1) SHARON (acute kidney injury) Current Visit: Yes Status: Acute The patient has acute kidney injury in the setting of rhabdomyolysis. The patient is under the recovery phase of his acute kidney injury. Last dialysis was last . He no longer is dialysis dependent. We will remove the temporary dialysis catheter. From a renal standpoint patient can be discharged to rehabilitation. We will arrange follow-up in the office. (2) Rhabdomyolysis Current Visit: Yes Status: Acute Qualifiers: Rhabdomyolysis type: non-traumatic Qualified Code(s): M62.82 - Rhabdomyolysis (3) Ileus Current Visit: Yes Status: Acute Subjective Principal diagnosis: Rhabdo Interval history: Patient has no complaints today. He is emptying his bladder without difficulty. His renal function continues to slowly improve. Objective - Vital Signs Vital signs: Vital Signs Temp Pulse Resp BP Pulse Ox 03/30/17 07:35 98.2 F 55 17 160/82 97 03/30/17 04:01 98.0 F 71 17 138/68 97 03/29/17 23:54 97.7 F 62 17 141/79 97 03/29/17 20:07 98.1 F 60 18 143/76 95 03/29/17 16:59 97.6 F 57 15 155/67 96 03/29/17 15:46 59 03/29/17 11:15 97.7 F 58 18 126/110 99 Intake and Output 03/29/17 03/30/17 03/30/17 23:59 07:59 15:59 Intake Total 0 / 0 Output Total 200 / 200 500 / 500 Balance -200 / -200 -500 / -500 Intake: Oral 0 / 0 Output: Urine 200 / 200 500 / 500 Other: Weight 104.893 kg Blood Glucose* 168 121 Patient Weight 03/30/17 23:59 Weight 104.893 kg - General Appearance Exam: Patient is alert and oriented. No acute distress. Lungs clear to auscultation. Heart regular rate and rhythm. Abdomen is benign. There is some mild lower extremity swelling. Smith catheter is been removed. There is a temporary dialysis catheter in the right internal jugular vein. - Lab 03/30/17 04:09 03/30/17 04:09 Most recent lab results Calcium 9.2 mg/dL (8.6-10.8) 03/30/17 04:09 Phosphorus 4.1 mg/dL (2.3-4.7) 03/27/17 04:00 Magnesium 1.3 mg/dL (1.6-2.6) L 03/27/17 04:00 Consult Discharge Plan - Plan Additional Instructions: Continue dialyses and follow-up with nephrology. Keep Smith catheter in place until being evaluated by urology. Avoid nephrotoxins. Referrals: ALTA DELGADILLO [Other] - 04/01/17 4:15 pm NONE,PCP [Primary Care Provider] - Prescriptions: OxyCODONE/APAP 5/325 [Percocet 5/325 MG] 1 each PO Q6HR PRN #20 PRN Reason: Pain
[2017-03-30] MEDS: Sennosides/Docusate Sodium TABLET PO SCH (08:27)
[2017-03-30] MEDS: Insulin LISPRO 300 UNITS/3 ML VIAL SQ SCH ×2 (08:27→11:57)
[2017-03-30] MEDS: amLODIPine 5 MG TABLET PO SCH (08:27)
[2017-03-30] MEDS: Aspirin 81 MG TAB.CHEW PO SCH (08:28)
[2017-03-30] MEDS: Sucralfate 1 GM TABLET PO SCH ×2 (08:30→11:54)
--- NOTE | 2017-03-30 10:44 | Discharge Summary ---
Date of Encounter: 03/30/17 Time of Encounter: 10:44 - Discharge Medications Prescriptions: OxyCODONE/APAP 5/325 [Percocet 5/325 MG] 1 each PO Q6HR PRN #20 PRN Reason: Pain Home Medications: Docusate [Colace] 100 mg PO BID 03/17/17 [History] Omeprazole [PriLOSEC] 40 mg PO DAILY 03/17/17 [History] Ondansetron ODT [Zofran ODT] 4 mg PO Q6H PRN 03/17/17 [History] Silodosin [Rapaflo] 8 mg PO DAILY 03/17/17 [History] Sucralfate [Carafate] 1 gm PO QID 03/17/17 [History] Sulfamethoxazole/Trimeth DS [Bactrim Ds] 1 each PO BID 03/17/17 [History] amLODIPine [Norvasc] 5 mg PO BID 03/17/17 [History] Aspirin 81 mg PO DAILY 03/26/17 [Rx] Insulin LISPRO [HumaLOG] 0 units SQ TIDAC vial 03/26/17 [Rx] OxyCODONE/APAP 5/325 [Percocet 5/325 MG] 1 each PO Q6HR PRN #20 03/26/17 [Rx] Allergies/Adverse Reactions: 3 Allergy/AdvReac Type Severity Reaction Status Date / Time No Known Allergies Allergy Verified 03/17/17 21:44 Date of admission: 03/18/17 06:21 Primary care physician: PCP NONE Consults: 03/18/17 04:27 Consult to Physical Therapy [CONS] Routine Comment: Evaluate, develop and implement POC Reason for Consult: BLE weakness OT [Consult to Occupational Therapy] [CONS] Routine Comment: Evaluate, develop and implement POC Reason for Consult: BLE weakness 03/18/17 09:17 Consult to Supervisor Parking Lot [CONS] Routine Reason for SW Consult: in patient rehab per pt/ot 03/18/17 10:08 Consult to Nephrology [CONS] Routine Consulting Provider: [facility] IRA Reason for Consult: Acute renal failure, rhabdomyolysis Call Completed: Yes 03/18/17 13:56 Consult to Cardiology [CONS] Routine Comment: Consulting Provider: Cardiology Walker Reason for Consult: Troponin elevation, rhabdomyolysis, Alex Call Completed: No 03/20/17 11:06 Consult to Surgery [CONS] Routine Consulting Provider: Surgery Walker Surgical Reason for Consult: Ileus, persistent nausea, abdominal distension Call Completed: Yes 03/22/17 08:34 Consult to Interventional Radiology [CONS] Routine Consulting Provider: Radiology Interventional Cols Reason for Consult: place temporary dialysis catheter Time Notified: 08:34 Call Completed: No 03/22/17 08:45 Consult to Dialysis [CONS] ONCE 03/23/17 08:15 Consult to Dialysis [CONS] ONCE 03/25/17 08:15 Consult to Dialysis [CONS] ONCE - Patient Status Disposition: Transfer SNF Condition: Fair - Discharge Instructions Follow Up With: ALTA DELGADILLO [Other] - 04/01/17 4:15 pm Mendez Garcia DO [Non-Partnered Physician] - 04/19/17 1:00 pm ([place] office) Additional Instructions: Continue dialyses and follow-up with nephrology. Keep Smith catheter in place until being evaluated by urology. Avoid nephrotoxins. Hospital course: Mr. Zacarias is a 71 year old male - Time Spent with Patient Total time spent providing and/or coordinating discharge services: - Constitutional Vitals: Temp Pulse Resp BP Pulse Ox 98.2 F 55 17 160/82 97 03/30/17 07:35 03/30/17 07:35 03/30/17 07:35 03/30/17 07:35 03/30/17 07:35 General appearance: Present: cooperative, A&O X 3, obese, answers questions appropriately
--- NOTE | 2017-03-30 10:52 | Internal Med Progress Note ---
<Abdoulaye Winslow - Last Filed: 03/30/17 11:13> Date of Encounter: 03/30/17 Time of Encounter: 10:49 - Assessment and plan (1) SHARON (acute kidney injury) Status: Acute Assessment and plan: Acute renal failure secondary to rhabdomyolysis. No previous diagnosis of chronic kidney disease. Cr improved at 4.53 this morning. Patient to be discharged today after temporary dialysis cather removed. Continue encouraging po hydration and monitoring renal function. (2) Rhabdomyolysis Status: Acute Assessment and plan: [place] [address]. Secondary to fall from bilateral lower extremity weakness and remaining on ground > 8 hours. Last CK 70 on 03/25/17. -Acute renal failure continuing to resolve. Cr 4.53 this morning. Remove temp dialysis catheter before discharge today. -Continue to encourage po hydration. -Continue to monitor kidney function. Qualifiers: Rhabdomyolysis type: non-traumatic Qualified Code(s): M62.82 - Rhabdomyolysis (3) Urinary retention Status: Resolved Assessment and plan: Resolved. CT abdomen/pelvis showed right renal nonobstructive stones. Renal ultrasound shows nonobstructing stone in the lower pole of right kidney, no hydronephrosis or hydroureter. Smith catheter was removed yesterday. -Continue home medication Silodosin upon discharge for bph (4) Ileus Status: Resolved Assessment and plan: Resolved. CT abdomen and pelvis on arrival revealed dilated small bowel loops with air fluid levels with no transition point. Patient responded well to ng tube and was removed successfully with tolerance of diet. Continue omeprazole. (5) Diabetes mellitus Status: Chronic Assessment and plan: Patient glucose on labs 121 this morning. Has been tolerating ADA diet. Continue monitoring, to continue insulin sliding dose scale. 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 Bp 160/82, elevated. To resume at home medications for chronic disease management upon discharge. Qualifiers: Hypertension type: essential hypertension Qualified Code(s): I10 - Essential (primary) hypertension (7) Bilateral leg weakness Status: Acute Assessment and plan: Bilateral lower extremity weakness s/p three separate anesthesias, likely related to physical deconditioning. Bilateral lower extremity weakness resolved by arrival to [place]. CT cervial and lumbar spine with no acute abnormality and CT head was negative for acute changes. -Discharge to ECF for inpatient rehab. (8) Physical deconditioning Status: Acute Assessment and plan: PT/OT recommended ECF placement upon discharge, to be discharged after temp dialysis catheter removed to an ECF facility. - Subjective Interval history: Patient did well overnight. Reports no troubles overnight with urination which is improving. Patient denies fevers, chills, sweats, nausea, vomiting, chest pain, shortness of breath, abdominal pain, changes in bowels, weakness, or loss of sensation. Patient and are concerned that we did not do a workup of the weakness the patient had. Explained that with three separate episodes of anesthesia close together, it may be most likely associated to physical deconditioning. Even if we were to do a workup at this time, including MRI brain, it would not likely show anything being over 10 days s/p symptoms of bilateral lower extremity weakness which has improved since arrival. Patient and are agreeable at this time not to pursue additional testing. Patient to be discharged after temporary dialysis cath removal to ECF later today. - Constitutional Vitals: Temp Pulse Resp BP Pulse Ox 98.2 F 55 17 160/82 97 03/30/17 07:35 03/30/17 07:35 03/30/17 07:35 03/30/17 07:35 03/30/17 07:35 General appearance: Present: cooperative, A&O X 3, pleasant, no acute distress, obese, answers questions appropriately - Head Head exam: Present: atraumatic, normal inspection, normocephalic - Eye Eye exam: Present: EOMI, normal appearance - ENT ENT exam: Present: mucous membranes moist, normal exam - Neck Neck exam general surgery: Present: full ROM, normal inspection, supple, trachea midline. Absent: tenderness - Respiratory Respiratory exam: Present: CTAB. Absent: rales, rhonchi, wheezes - Cardiovascular Cardiovascular exam: Present: RRR, +S1, +S2. Absent: diastolic murmur, systolic murmur - GI/Abdominal GI/Abdominal exam: Present: normal bowel sounds, soft. Absent: distended, tenderness - Extremities Exam Extremities exam: Present: full ROM, normal inspection, pedal edema (2-3+ pitting edema bilaterally), warm. Absent: tenderness Additional comments: some petichiae noted lower extremities bilaterally, noted by patient to be chronic. - Back Exam Back exam: Present: full ROM, normal inspection. Absent: rash noted, tenderness - Neurological Exam Neurological exam: Present: alert, CN II-XII intact, normal gait, oriented X3, no focal deficits, strengths equal and symetr throughout. Absent: facial droop , speech deficit - Psychiatric Psychiatric exam: Present: normal affect, normal mood - Skin Skin exam: Present: dry, intact, normal color, warm Internal Medicine: Result - Labs CBC & Chem 7: 03/30/17 04:09 03/30/17 04:09 Labs: Short CBC 03/30/17 Range/Units 04:09 WBC 5.9 (4.3-11.1) K/mcL Hgb 7.9 L (12.9-16.9) g/dL Hct 24.8 L (37.5-50.1) % Plt Count 227 (140-400) K/mcL BMP 03/30/17 04:09 Sodium 140 Potassium 3.6 Chloride 105 Carbon Dioxide 25 BUN 60 H Creatinine 4.53 H Glucose 121 H Calcium 9.2 Liver Function 03/30/17 Range/Units 04:09 Total Bilirubin 0.5 (0.2-1.2) mg/dL AST 34 (5-34) Units/L ALT 60 H (0-55) Units/L Alkaline Phosphatase 49 (38-126) Units/L Albumin 2.4 L (3.5-5.0) g/dL - ABG Interpretation ABG results: PT/INR, D-dimer PT 16.1 Seconds (9.4-12.1) H 03/18/17 00:01 Consult Discharge Plan - Plan Additional Instructions: Continue dialyses and follow-up with nephrology. Keep Smith catheter in place until being evaluated by urology. Avoid nephrotoxins. Referrals: ALTA DELGADILLO [Other] - 04/01/17 4:15 pm Mendez Garcia DO [Non-Partnered Physician] - 04/19/17 1:00 pm ([place] office) Prescriptions: OxyCODONE/APAP 5/325 [Percocet 5/325 MG] 1 each PO Q6HR PRN #20 PRN Reason: Pain <Chandler Cordova T - Last Filed: 03/30/17 13:10> Date of Encounter: 03/30/17 - Constitutional Vitals: Temp Pulse Resp BP Pulse Ox 97.5 F L 58 18 151/77 96 03/30/17 11:10 03/30/17 11:10 03/30/17 11:10 03/30/17 11:10 03/30/17 11:10 Internal Medicine: Result - Labs CBC & Chem 7: 03/30/17 04:09 03/30/17 04:09 Labs: Short CBC 03/30/17 Range/Units 04:09 WBC 5.9 (4.3-11.1) K/mcL Hgb 7.9 L (12.9-16.9) g/dL Hct 24.8 L (37.5-50.1) % Plt Count 227 (140-400) K/mcL BMP 03/30/17 04:09 Sodium 140 Potassium 3.6 Chloride 105 Carbon Dioxide 25 BUN 60 H Creatinine 4.53 H Glucose 121 H Calcium 9.2 Liver Function 03/30/17 Range/Units 04:09 Total Bilirubin 0.5 (0.2-1.2) mg/dL AST 34 (5-34) Units/L ALT 60 H (0-55) Units/L Alkaline Phosphatase 49 (38-126) Units/L Albumin 2.4 L (3.5-5.0) g/dL - ABG Interpretation ABG results: PT/INR, D-dimer PT 16.1 Seconds (9.4-12.1) H 03/18/17 00:01 - Attending Attestation I have independently seen and examined this patient on 03/30/17, reviewed the EMR and discussed plan of care with the patient and resident physician 71 M with PMH of HTN, GERD, DM he was admitted for pre-renal/intrinsic and post-renal SHARON secondary to rhabdomyolysis following a fall and prolonged down time. His hospital stay was associated with ileus which required NG tube placement, and his SHARON required HD , Acute urinary retention He was seen by PT/OT for deconditioning and has been referred for ECF placement. He had multiple procedures prior to admission He is seen with his at the bedside and denies new complains He believes he has made remarkbale improvement, he is having BM, making adequate urine . He also states his strength has improved Physical exam is remarkable for petechiae on legs, and bilateral knee and hip bruising from fall, his chest is clear, HS S1, S2 only, no m/g/r, abdomen is not tender Labs and Imaging reviewed: Cr improving, hb is low-7.9 A/P: SHARON, Anemia, Deconditioning, sepsis and UTI were ruled out. ECHO ruled out acute cardiac event, patient has no neurologic deficits. He is stable for discharge to SNF and needs follow up with Dr. Garcia for his renal dysfunction, his PCP for management of chronic conditions and monitoring of chem/CBC. urinary retention resolved Plan of care discussed, verbalized understanding Rest of details as in resident physician's documentation
[2017-03-30 11:11] VITALS: BP 151/77
== END 2017-03-30 12:45 | DRG 683 ==
LOC: 2NNU → SUATTDRO 03-18 06:21 → 2ANU 03-29 16:04
PROVIDERS: ADMIT Internal Medicine; ATTEND Internal Medicine